=== PATIENT | male | born 1950 | race Caucasian/White ===

== ENCOUNTER 2023-04-17 06:29 | Outpatient (OUT) | payer MEDICARE, OTHER, SELFPAY ==
[2023-04-17 07:07] LABS: Alanine Aminotransferase 45 U/L (16-63); Anion Gap 13.4; BUN Creatinine Ratio 21.2; Calcium 8.3 mg/dL (8.5-10.1); Carbon Dioxide 27.7 mmol/L (21.0-32.0); Chloride 101 mmol/L (98-107); Chol HDL Ratio 5.2; Cholesterol 150 mg/dL (<=200); Estimated GFR (African America >60 (>=60); Estimated GFR (Non-African Ame >60 (>=60); Glucose 89 mg/dL (74-106); HDL Cholesterol 29 mg/dL (40-60); Potassium 4.1 mmol/L (3.5-5.1); Sodium 138 mmol/L (136-145); Thyroid Stimulating Hormone 1.984 uIU/mL (0.358-3.740); Triglycerides 245 mg/dL (<=150)
[2023-04-17 07:43] LABS: Basophils Percent Auto 0.3 % (0.2-2.0); Eosinophils Absolute Auto 0.1 10^3/uL (0.0-0.7); Eosinophils Percent Auto 1.4 % (0.9-7.0); Hematocrit 38.9 % (42.0-54.0); Hemoglobin 13.2 g/dL (14.0-18.0); Immature Granulocytes Abs Auto 0.15 10^3/uL (0.00-0.03); Immature Granulocytes Pct Auto 1.5 % (0.0-0.5); Lymphocytes Absolute Auto 2.4 10^3/uL (1.2-3.8); Lymphocytes Percent Auto 25.1 % (20.5-60.0); Mean Corpuscular HGB Conc 33.9 g/dL (29.9-35.2); Mean Corpuscular Hemoglobin 31.7 pg (25.9-34.0); Mean Corpuscular Volume 93.5 fL (80.0-94.0); Mean Platelet Volume 11.1 fL (9.5-13.5); Monocytes Absolute Auto 1.1 10^3/uL (0.3-0.8); Monocytes Percent Auto 11.6 % (1.7-12.0); Neutrophils Absolute Auto 5.8 10^3/uL (1.4-6.5); Neutrophils Percent Auto 60.1 % (43.0-75.0); Platelet Count 173 10^3/uL (150-450); Red Blood Count 4.16 10^6/uL (4.70-6.10); Red Cell Distribution Width 12.4 % (11.0-15.0); White Blood Count 9.7 10^3/uL (4.0-11.0)
[2023-04-17 08:27] LABS: Prostate Specific Antigen Scrn 1.25 ng/mL (<=4.00)
== END 2023-04-17 06:30 | disposition home or self-care (01) ==
LOC: LAB 06:29
PROVIDERS: PCP Internal Medicine; Visit Provider Internal Medicine
DX: Z00.00 Encounter for general adult medical examination without abnormal findings (principal); R53.83 Other fatigue; Z79.899 Other long term (current) drug therapy; E78.00 Pure hypercholesterolemia, unspecified; Z12.5 Encounter for screening for malignant neoplasm of prostate
CPT/HCPCS: 36415; 80048; 80061; 84443; 84460; 85025; G0103

== ENCOUNTER 2024-04-21 06:30 | Outpatient (OUT) | payer MEDICARE, OTHER, SELFPAY ==
[2024-04-21 07:00] LABS: Basophils Percent Auto 0.4 % (0.2-2.0); Eosinophils Absolute Auto 0.4 10^3/uL (0.0-0.7); Eosinophils Percent Auto 5.2 % (0.9-7.0); Hematocrit 41.7 % (42.0-54.0); Hemoglobin 14.1 g/dL (14.0-18.0); Immature Granulocytes Abs Auto 0.04 10^3/uL (0.00-0.03); Immature Granulocytes Pct Auto 0.5 % (0.0-0.5); Lymphocytes Absolute Auto 2.4 10^3/uL (1.2-3.8); Lymphocytes Percent Auto 31.2 % (20.5-60.0); Mean Corpuscular HGB Conc 33.8 g/dL (29.9-35.2); Mean Corpuscular Hemoglobin 31.8 pg (25.9-34.0); Mean Corpuscular Volume 93.9 fL (80.0-94.0); Mean Platelet Volume 10.3 fL (9.5-13.5); Monocytes Absolute Auto 0.7 10^3/uL (0.3-0.8); Monocytes Percent Auto 9.4 % (1.7-12.0); Neutrophils Absolute Auto 4.1 10^3/uL (1.4-6.5); Neutrophils Percent Auto 53.3 % (43.0-75.0); Platelet Count 210 10^3/uL (150-450); Red Blood Count 4.44 10^6/uL (4.70-6.10); Red Cell Distribution Width 12.2 % (11.0-15.0); White Blood Count 7.6 10^3/uL (4.0-11.0)
[2024-04-21 08:09] LABS: Alanine Aminotransferase 36 U/L (16-63); Albumin Globulin Ratio 0.9; Albumin Level 3.6 g/dL (3.4-5.0); Alkaline Phosphatase 58 U/L (46-116); Anion Gap 14.4; Aspartate Amino Transferase 23 U/L (15-37); BUN Creatinine Ratio 13.5; Bilirubin Total 0.7 mg/dL (0.2-1.0); Calcium 9.2 mg/dL (8.5-10.1); Carbon Dioxide 28.5 mmol/L (21.0-32.0); Chloride 103 mmol/L (98-107); Chol HDL Ratio 4.2; Cholesterol 157 mg/dL (<=200); Estimated GFR (African America >60 (>=60 mL/min/1.73m^2); Estimated GFR (Non-African Ame >60 (>=60 mL/min/1.73m^2); Globulin 3.8 g/dL; Glucose 98 mg/dL (74-106); HDL Cholesterol 37 mg/dL (40-60); Potassium 4.9 mmol/L (3.5-5.1); Sodium 141 mmol/L (136-145); Thyroid Stimulating Hormone 3.853 uIU/mL (0.358-3.740); Total Protein 7.4 g/dL (6.4-8.2); Triglycerides 113 mg/dL (<=150); VLDL CHOLESTEROL 22.6 mg/dL
[2024-04-21 08:13] LABS: Prostate Specific Antigen Scrn 1.48 ng/mL (<=4.00)
[2024-04-22 08:12] LABS: Vitamin B12 574 pg/mL (232-1245)
== END 2024-04-21 06:31 | disposition home or self-care (01) ==
LOC: LAB 06:31
PROVIDERS: PCP Internal Medicine; Visit Provider Internal Medicine
DX: D64.9 Anemia, unspecified (principal); R53.83 Other fatigue; E78.00 Pure hypercholesterolemia, unspecified; I10 Essential (primary) hypertension; Z12.5 Encounter for screening for malignant neoplasm of prostate
CPT/HCPCS: 36415; 80053; 80061; 82607; 82728; 84443; 85025; G0103

== ENCOUNTER 2024-04-30 07:16 | Outpatient (OUT) | payer MEDICARE, OTHER, SELFPAY ==
--- OUTSIDE RECORDS SUMMARY | 2024-04-30 07:18 | XMS_ITS | CCD ---
Author Organization [facility] Care Team Providers Care Mover Helper Name Role Phone ISRAEL, DR CHILDRESS Consulting Unavailable ISRAEL, DR CHILDRESS Primary Care Unavailable ISRAEL, DR CHILDRESS Admitting Unavailable ISRAEL, DR CHILDRESS Attending Unavailable ISRAEL, DR CHILDRESS Primary Care Unavailable ISRAEL, DR CHILDRESS Admitting Unavailable ISRAEL, DR CHILDRESS Attending Unavailable ISRAEL, DR CHILDRESS Consulting Unavailable [place], Ruben Unavailable MITZY EISENBERG Attending Unavailable Unavailable Primary Care Provider UnavailMAGO Melchor Attending Unavailable MARLEN, VA Boyd Attending Unavailable TATIANNA ANN Attending Unavailable MARLEN, VA Boyd Attending Unavailable Ruben Wood MD Primary Care Provider MD JAYASHREE GRANT Attending Unav ailRUBEN Zhang Referring Unavailable RUBEN WOOD Primary Care Physician [phone] Allergies Allergy Classification Reported Allergen(s) Allergy Type Date of Onset Reaction(s) Facility (5 sources) Bacitracin / Neomycin / Polymyxin B Drug Allergy swelling et blisters Agent Partner Other (1 source) NEOMYCIN-BACITR ACIN-POLYMYXIN; Translations: [NEOMYCIN-BACIT RACIN-POLYMYXIN ] Propensity to adverse reactions to drug (disorder) 4 [facility] Repository (1 source) NEOMYCIN-BACITR ACNZN-POLYMYXNB ; Translations: [NEOMYCIN-BACIT RACNZN-POLYMYXN B] Propensity to adverse reactions to drug (disorder) 3 [facility] Repository (7 sources) Bacitracin; Translations: [bacitracin] Drug Allergy 4 Unknown (qualifier value) [facility] (3 sources) Neomycin; Translations: [Neomycin] Drug Allergy 4 Unknown (qualifier value) [facility] (6 sources) polymyxin B Allergy to substance 4 Swelling, rash, blistering, swelling et blisters [facility] (1 source) polymyxin B ophthalmic; Translations: [polymyxin B ophthalmic] Drug allergy Unknown (qualifier value) [facility] Medications Current Medications Medication Drug Class(es) Dates Sig (Normalized) Sig (Original) acetaminophen 300 mg / codeine phosphate 30 mg oral tablet (5 sources) Opioid Agonist Start: 10-22-2023 acetaminophen-cod eine (Tylenol w/ Codeine #3) 300-30 MG tablet 10/22/2023 Active acetaminophen 325 mg / HYDROcodone bitartrate 5 mg oral tablet (5 sources) Opioid Agonist Start: 10-15-2023 take 1 tablet by mouth every six hours for pain HYDROcodone-aceta minophen ([place]) 5-325 MG tablet take 1 tablet by mouth every 6 hours if needed for mild pain for 3 days 10/15/2023 Active acetaminophen 325 mg / traMADol hydrochloride 37.5 mg oral tablet (5 sources) Opioid Agonist Start: 10-15-2023 traMADol-acetamin ophen (UltraCET) 37.5-325 MG tablet take 2 tablets by mouth every 4 to 6 hours maximum daily dose of 8 tablets 10/15/2023 Active amoxicillin 875 mg / clavulanate 125 mg oral tablet (4 sources) Penicillin-class Antibacterial take 1 tablet by mouth every twelve hours Amoxicillin-Pot Clavulanate 875-125 MG 1 tablet Orally every 12 hrs w/ food for 7 days Active aspirin 81 mg delayed release oral tablet (14 sources) Platelet Aggregation Inhibitor, Nonsteroidal Anti-inflammatory Drug Start: 03-20-2024 Aspirin (Adult Low Dose Aspirin) 81 mg tablet,delayed release (DR/EC) Active 81 MG PO Daily March 20, 2024 12:00am Start: 07-16-2018 End: 03-20-2024 take 325 mg by mouth once daily Aspirin Discontinued 325 MG PO Daily July 16, 2018 1:00am March 20, 2024 9:01am atorvastatin 10 mg oral tablet (20 sources) HMG-CoA Reductase Inhibitor Start: 04-29-2024 atorvastatin 10 mg T ab 10 mg = 1 tab(s) Start Date: 04/29/24 Status: Ordered Start: 02-18-2024 Atorvastatin A ctive 0 .ROUTE .COMPLEX 90 February 18, 2024 11:46am TAKE 1 TABLET ONCE DAILY Start: 03-08-2023 take 1 tablet by isabel th every twenty-four hours Atorvastatin Calcium 10 MG 1 tablet Orally Once a day for 90 days Mar, Active Start: 07-16-2018 End: 02-18-2024 Atorvastatin Discontinued 10 MG PO Q48H July 16, 2018 1:00am February 18, 2024 11:46am azithromycin 250 mg oral tablet (3 sources) Macrolide Antimicrobial Start: 04-05-2023 Azithromycin 250 MG as directed Orally daily for 5 days Apr, Active betamethasone 0.5 mg/ml topical cream (5 sources) Corticosteroid betamethasone dipropionate 0.05 % cream Active ciprofloxacin 500 mg oral tablet (6 sources) Quinolone Antimicrobial Start: 04-29-2024 take 1 tablet by mouth twice daily Cipro 500 mg Tab 500 mg = 1 tab(s), Oral, BID, Start the day prior to procedure., # 6 tab(s), Refills(s) 0, Pharmacy: [id number], [id number], cm, 04/29/24 14:04:00 EDT, Height/Length Dosing, 122.5, kg, 04/29/24 14:04:00 EDT, Weight Dosing Start Date: 04/29/24 Status: Ordered ciprofloxacin (C ipro) 500 MG tablet every 12 (twelve) hours. Active diclofenac sodium 75 mg / miSOPROStol 0.2 mg delayed release oral tablet (20 sources) Nonsteroidal Anti-inflammatory Drug, Prostaglandin E1 Analog Start: 04-29-2024 diclofenac-misoprostol 75 mg-200 mcg oral delayed release tablet 1 tab(s) Start Date: 04/29/24 Status: Ordered Start: 02-18-2024 Diclofenac-Mis oprostol Active 0 .ROUTE .COMPLEX 180 February 18, 2024 11:46am TAKE 1 TABLET TWICE A DAY Start: 07-16-2018 End: 02-18-2024 take 1 tablet by mouth once daily in the morning Diclofenac-Misoprostol (Arthrotec 50) 50-200 mg-mcg Tablet,Ir,Delayed Rel,Biphasic Discontinued 1 TAB PO Every morning July 16, 2018 1:00am February 18, 2024 11:46am take 1 tablet by isabel th in the morning Diclofenac-miSOPROStol (ARTHROTEC PO) Take 1 tablet by mouth in the morning and 1 tablet before bedtime. Active take 1 tablet by isabel th every twelve hours Arthrotec 75-0.2 MG 1 tablet with food Orally Twice a day Active Diclofenac-miSOP ROStol 75-0.2 MG TAKE 1 TABLET TWICE A DAY for 90 Not-Taking doxepin 6 mg oral tablet (5 sources) Tricyclic Antidepressant Start: 03-20-2024 doxepin (Silenor) 6 mg tablet tablet Take 6 mg by mouth as needed at bedtime 03/20/2024 Active levoFLOXacin 500 mg oral tablet (5 sources) Quinolone Antimicrobial Start: 03-27-2024 take 1 tablet by mouth once daily levoFLOXacin (Levaquin) 500 MG tablet Take 500 mg by mouth Daily 03/27/2024 Active loratadine 10 mg oral tablet (7 sources) Start: 07-16-2018 take 1 tablet by mouth once daily Loratadine (Claritin) 10 mg Tablet Active 10 MG PO Daily July 16, 2018 1:00am 12 hr loratadine 5 mg / pseudoephedrine sulfate 120 mg extended release oral tablet (5 sources) alpha-Adrenergic Agonist loratadine-pseudoe phedrine ER (Claritin-D 12 Hour) 5-120 MG 12 hr tablet every 12 (twelve) hours. Active Nasal [place] 0.05 % (2 sources) take 2 spray(s) nasal route at bedtime Nasal [place] 0.05 % 2 sprays Nasally bedtime Active ondansetron 4 mg disintegrating oral tablet (5 sources) Serotonin-3 Receptor Antagonist Start: 03-27-2024 take 4 mg by mouth every eight hours Ondansetron Active 4 MG PO Every 8 hours 9 3 March 27, 2024 12:00am oxymetazoline hydrochloride 0.5 mg/ml nasal spray (10 sources) Start: 07-17-2018 Oxymetazoline (Afrin (Oxymetazoline)) 0.05 % [place],Non-Aerosol Active 2 SPRAY INTRANASAL Daily at bedtime July 17, 2018 1:00am oxymetazoline (A frin Nasal [place]) 0.05 % nasal spray [place] 2 sprays twice a day by intranasal route. Active take 2 spray(s) nasal route at b edtime Nasal [place] 0.05 % 2 sprays Nasally bedtime Active pantoprazole 40 mg delayed release oral tablet (15 sources) Proton Pump Inhibitor Start: 04-29-2024 Pantoprazole 40 mg D R Tab 40 mg = 1 tab(s) Start Date: 04/29/24 Status: Ordered Start: 02-18-2024 Pantoprazole A ctive 0 .ROUTE .COMPLEX 90 February 18, 2024 11:46am TAKE 1 TABLET ONCE DAILY INTHE MORNING ON AN EMPTY STOMACH FOLLOWED IN 30 MINUTES BY BREAKFAST Start: 06-07-2021 End: 02-18-2024 take 40 mg by mouth once daily Pantoprazole Discontinu ed 40 MG PO Daily June 07, 2021 1:00am February 18, 2024 11:46am predniSONE 20 mg oral tablet (7 sources) Start: 03-13-2023 take 1 tablet by mouth twice daily predniSONE 20 MG 1 tablet Orally twice daily w/ food for 5 days Apr, Active pseudoephedrine hydrochloride 30 mg oral tablet (10 sources) alpha-Adrener gic Agonist take 1 tablet by mouth in the morning pseudoephedrine (Sudafed) 30 MG tablet Take 1 tablet by mouth in the morning. Active take 1 tablet by mouth once francisco y Sudafed 30 MG 1 tablet Orally daily for 90 days Active psyllium 3400 mg powder for oral suspension (7 sources) Start: 07-17-2018 Psyllium Husk (Metamucil) 3.4 gram/5.4 gram Powder Active 1 TBSP PO Daily July 17, 2018 1:00am Metamucil 28 % 1 packet with 8 ounces of liquid as needed Orally Once a day Active tamsulosin hydrochloride 0.4 mg oral capsule (18 sources) alpha-Adrenergic Yasmin Start: 04-29-2024 tamsu losin 0.4 mg Cap 0.4 mg = 1 cap(s) Start Date: 04/29/24 Status: Ordered Start: 07-16-2018 take 1 capsule by [facility] once daily Tamsulosin (Flomax) 0.4 mg capsule Active 0.4 MG PO Daily July 16, 2018 1:00am Completed/Discontinued Medications Medication Drug Class(es) Dates Sig (Normalized) Sig (Original) [id number] 200 actuat albuterol 0.09 mg/actuat metered dose inhaler (5 sources) beta2-Adrenergic Agonist Start: 04-03-2019 take 2 puff(s) by inhalation every six hours as needed Albuterol Sulfate HFA 108 (90 Base) MCG/ACT Albuterol Sulfate HFA 108 (90 Base)MCG/ACT, 2 (two) Puff every six hours, as needed # 1, 04/03/2019, Ref. x5. Active Inhalation every six hours, as needed for Apr, Not-Taking Start: 04-03-2019 take 2 puff(s) by in halation every six hours as needed Albuterol Sulfate HFA 108 (90 Base) MCG/ACT Albuterol Sulfate HFA 108 (90 Base)MCG/ACT, 2 (two) Puff every six hours, as needed # 1, 04/03/2019, Ref. x5. Active Inhalation every six hours, as needed for Apr, Not-Taking dextromethorphan hydrobromide 1.5 mg/ml / pyrilamine maleate 1.5 mg/ml oral solution (5 sources) Uncompetitive P-cwtsem-F-aspartate Receptor Antagonist, Sigma-1 Agonist Start: 01-04-2019 [place] DM 7.5-7.5 MG/5ML 10 ml Orally every 6-8 hours as needed for 8 days Dec, Not-Taking fluticasone propionate 0.05 mg/actuat metered dose nasal spray (20 sources) Corticosteroid Start: 04-29-2024 fluticasone Nasal 0.05 mg/inh [place] 1 spray(s) Start Date: 04/29/24 Status: Ordered Start: 02-18-2024 take 2 spray(s) nasa l route once daily Fluticasone Propionate Active 0 .ROUTE .COMPLEX 48 February 18, 2024 11:46am USE 2 SPRAYS IN EACH NOSTRIL ONCE DAILY Start: 03-08-2023 take 2 spray(s) nasa l route once daily Fluticasone Propionate 50 MCG/ACT 2 sprays each nostril Nasally Once a day for 90 days Mar, Active Start: 06-07-2021 End: 02-18-2024 Fluticasone Furoate Disconti nued 1 SPRAY INTRANASAL Daily June 07, 2021 1:00am February 18, 2024 11:46am Start: 08-17-2013 take 2 spray(s) nasa l route once daily FLONASE 50 mcg 2 sprays each NOSTRIL intranasally qd for 10 day(s) Aug, Active fluticasone (Fish nase) 50 MCG/ACT nasal spray Active glycerin 2 mg/ml / hypromellose 2 mg/ml / polyethylene glycol 400 10 mg/ml ophthalmic solution (2 sources) Non-Standardized Chemical Allergen Start: 06-07-2021 End: 03-20-2024 Peg 270-Kuqtasfbpbwf-Cnadqsru Discontinued 1 DROPS EYE-BOTH As Directed June 07, 2021 1:00am March 20, 2024 9:03am methylPREDNISolone 4 mg oral tablet (5 sources) Corticosteroid Start: 01-04-2019 Medrol (Avi) 4 MG half of daily dose in the morning with food and the rest at night with food Orally Dec, Not-Taking nabumetone 750 mg oral tablet (5 sources) Nonsteroidal Anti-inflammatory Drug Nabumetone 750 MG as directed Orally Not-Taking Hfqetjcsx-Lj-Nsmpcbm n-Guaifen (Sudafed [place] Congestion-Flu) 6-64-167-100 mg Tablet (2 sources) Start: 06-07-2021 End: 03-20-2024 Gqvbvouqv-As-Yecbtelm-Guai fen (Sudafed [place] Congestion-Flu) 0-61-076-100 mg Tablet Discontinued 1 TAB PO As Directed June 07, 2021 1:00am March 20, 2024 9:03am ProAir HFA 108 (90 Base) MCG/ACT (5 sources) Start: 01-04-2019 take 2 puff(s) by inhalation every four to six hours as needed ProAir HFA 108 (90 Base) MCG/ACT 2 puffs as needed Inhalation every 4-6 hrs Dec, Not-Taking Problems Active Problems Problem Classification Problem Date Documented Date Episodic/Chronic Acute bronchitis (1 source) Acute bronchitis due to other specified organisms Episodic Asthma (15 sources) Uncomplicated moderate persistent asthma; Translations: [Moderate persistent asthma, uncomplicated] Chronic Cataract (6 sources) Bilateral age-related nuclear cataracts; Translations: [Age-related nuclear cataract, bilateral] Onset: 01-22-2023 01-22-2023 Chronic Deficiency and other anemia (4 sources) Anemia, unspecified; Translations: [ANEMIA UNSPECIFIED] Onset: 05-22-2022 Episodic Disorders of lipid metabolism (15 sources) Familial hypercholesterolemia; Translations: [Hypercholesterolemia] Onset: 03-27-2022 Chronic Diverticulosis and diverticulitis (5 sources) Diverticulosis of sigmoid colon; Translations: [Diverticulosis of large intestine without perforation or abscess without bleeding] Chronic Esophageal disorders (10 sources) Gastro-esophageal reflux disease with esophagitis; Translations: [Gastroesophageal reflux disease with esophagitis without hemorrhage] 03-17-2024 Chronic Essential hypertension (3 sources) Hypertensive disorder; Translations: [Essential (primary) hypertension] 03-20-2024 Chronic Genitourinary symptoms and ill-defined conditions (5 sources) Nocturia; Translations: [Retention of urine] Onset: 04-29-2024 Episodic Glaucoma (6 sources) Preglaucoma, unspecified, bilateral; Translations: [Preglaucoma, unspecified] Onset: 01-22-2023 01-22-2023 Chronic Hyperplasia of prostate (8 sources) Nocturia due to benign prostatic hypertrophy; Translations: [Benign prostatic hyperplasia with lower urinary tract symptoms] Onset: 04-29-2024 Chronic Inflammation; infection of eye (except that caused by tuberculosis or sexually transmitteddisease) (6 sources) Blepharitis of upper and lower eyelids of bilateral eyes; Translations: [Unspecified blepharitis right eye, upper and lower eyelids] Onset: 01-22-2023 01-22-2023 Episodic Inflammatory conditions of male genital organs (1 source) Acute prostatitis 04-29-2024 Episodic Malaise and fatigue (1 source) Other fatigue Episodic Melanomas of skin (5 sources) 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; Translations: [Melanoma in situ of nose] Chronic Other aftercare (2 sources) Other mcc (current) drug therapy; Translations: [OTH CORRECTION CURRENT DRUG THERAPY] Onset: 03-29-2022 Episodic Other and unspecified benign neoplasm (2 sources) Skin lesion; Translations: [Hemangioma of skin and subcutaneous tissue] 04-21-2024 Episodic Other endocrine disorders (1 source) Testicular hypofunction; Translations: [Testicular hypofunction] Onset: 04-29-2024 Chronic Other endocrine disorders (1 source) Male hypogonadism 04-29-2024 Chronic Other eye disorders (6 sources) Dry eyes; Translations: [Dry eye syndrome of bilateral lacrimal glands] Onset: 01-22-2023 01-22-2023 Episodic Other male genital disorders (2 sources) Male erectile dysfunction, unspecified; Translations: [Erectile dysfunction] Onset: 04-29-2024 Chronic Other nutritional; endocrine; and metabolic disorders (2 sources) Obesity; Translations: [Obesity, unspecified] 03-20-2024 Chronic Other nutritional; endocrine; and metabolic disorders (1 source) Obesity, unspecified; Translations: [Obesity, unspecified] 03-20-2024 Chronic Other screening for suspected conditions (not mental disorders or infectious disease) (8 sources) Encounter for screening for malignant neoplasm of prostate; Translations: [Patient encounter status] Onset: 03-29-2022 Episodic Other skin disorders (2 sources) Lentiginosis; Translations: [Other melanin hyperpigmentation] 04-21-2024 Episodic Other skin disorders (2 sources) Seborrheic keratosis; Translations: [Other seborrheic keratosis] 04-21-2024 Episodic Other upper respiratory disease (5 sources) Vasomotor rhinitis; Translations: [Vasomotor rhinitis] Chronic Other upper respiratory disease (1 source) Vasomotor rhinitis Chronic Otitis media and related conditions (2 sources) Acute serous otitis media, left ear; Translations: [Unspecified Eustachian tube disorder, left ear] Episodic Residual codes; unclassified (8 sources) Obstructive sleep apnea syndrome; Translations: [Obstructive sleep apnea (adult) (pediatric)] 03-17-2024 Chronic Residual codes; unclassified (3 sources) Obstructive sleep apnea (adult) (pediatric); Translations: [Obstructive sleep apnea (adult)(pediatric)] Chronic Residual codes; unclassified (5 sources) Family history of malignant neoplasm of gastrointestinal tract; Translations: [Family history of malignant neoplasm of digestive organs] Episodic Residual codes; unclassified (3 sources) Insomnia; Translations: [Insomnia, unspecified] 03-20-2024 Episodic Residual codes; unclassified (2 sources) Family history of cancer of colon; Translations: [Family history of malignant neoplasm of digestive organs] 06-13-2023 Episodic Residual codes; unclassified (2 sources) Insomnia, unspecified; Translations: [Insomnia, unspecified] 03-20-2024 Episodic Spondylosis; intervertebral disc disorders; other back problems (11 sources) Lumbar spondylosis; Translations: [Spondylosis without myelopathy or radiculopathy, lumbar region] Chronic Past or Other Problems Problem Classification Problem Date Documented Da te Episodic/Chronic Esophageal disorders (1 source) Esophageal disorders Results Test Name Value Interpretation Reference Range Facil ity Perimetry studyon 04-23-2024 [facility] Healthcar e Radiology Study observation (narrative) [facility] Healthcare Follow-Upon 11-09-2023 Follow-Up [id number] Earl Jiménez 1950 M Date Provider Department Center 11/09/2023 MITZY SANCHEZ [facility] SLEEP [facility] No family history on file Level of Service:65677 CT OFFICE/OUTPATIENT ESTABLISHED LOW [facility] 20 MIN Reason for Visit and Comments: Follow-up [691287] - Pt states it is going ok however over the past few weeks he's had some dental work with was irritated by the air. It is healed up now so he's been back on the machine for about the past week. Normal [facility] 36on 11-30-2022 36 ----- Message from Mitzy Eisenberg MD sent at 11/28/2022 5:53 PM EDT ----- Regarding: FW: CPAP download Please inform the patient that the numbers improved after we increased the setting (AHI improved from 6.6 to 4.0). Will keep current setting at 17 cmH2O. I made addendum at the bottom of my note from his last follow-up visit on 2022. ----- Message ----- From: Mitzy Eisenberg MD Sent: 11/22/2022 12:00 AM EDT To: Mitzy Eisenberg MD Subject: CPAP download Saw patient on 2022. Changed CPAP setting from 15 cmH2O to 17 cmH2O. Check download. Normal [facility] CBC AUTO DIFFon 05-22-2022 BASO # 0.0 103/ul Normal 0.0-0.1 [facility] Comment on above: Performed By: #### C BC #### [facility] [address] [address] [address] Jordan Jensen Basophils/100 WBC (Bld) 0.4 % Normal 0.2-2.0 [facility] Comment on above: Performed By: #### C BC #### [facility] [address] [place] [address] Dr. Jordan Jensen EO # 0.3 103/ul Normal 0.0-0.7 [facility] Comment on above: Performed By: #### C BC #### [facility] [address] [place] [address] Dr. Jordan Jensen Eosinophils/100 WBC (Bld) 3.1 % Normal 0.9-7.0 [facility] Comment on above: Performed By: #### C BC #### [facility] [address] [place] [address] Dr. Jordan Jensen Erythrocyte distribution width (RBC) [Ratio] 12.1 % Normal 11.0-15.0 [facility] Comment on above: Performed By: #### C BC #### [facility] [address] [place] [address] Dr. Jordan Jensen Hematocrit (Bld) [Volume fraction] 40.9 % Critically low 42.0-54.0 [facility] Comment on above: Performed By: #### C BC #### [facility] [address] [place] [address] Dr. Jordan Jensen Hemoglobin (Bld) [Mass/Vol] 14.4 g/dL Normal 14.0-18.0 [facility] Comment on above: Performed By: #### C BC #### [facility] [address] [place] [address] Dr. Jordan Jensen IG # 0.06 10e3/ul Critically high 0.00-0.03 [facility] Comment on above: Performed By: #### C BC #### [facility] [address] [place] [address] Dr. Jordan Jensen IG % 0.7 % Critically high 0.0-0.5 [facility] Comment on above: Performed By: #### C BC #### [facility] [address] [place] [address] Dr. Jordan Jensen LYMPH # 2.3 103/ul Normal 1.2-3.8 [facility] Comment on above: Performed By: #### C BC #### [facility] [address] [place] [address] Dr. Jordan Jensen Lymphocytes/100 WBC (Bld) 27.9 % Normal 20.5-60.0 [facility] Comment on above: Performed By: #### C BC #### [facility] [address] [place] [address] Dr. Jordan Jensen MANUAL DIFF REQ NO Normal [facility] Comment on above: Performed By: #### C BC #### [facility] [address] [place] [address] Dr. Jordan Jensen MCH (RBC) [Entitic mass] 32.5 pg Normal 25.9-34.0 [facility] Comment on above: Performed By: #### C BC #### [facility] [address] [place] [address] Dr. Jordan Jensen MCHC (RBC) [Mass/Vol] 35.2 g/dL Normal 29.9-35.2 [facility] Comment on above: Performed By: #### C BC #### [facility] [address] [place] [address] Dr. Jordan Jensen MCV (RBC) [Entitic vol] 92.3 fL Normal 80.0-94.0 [facility] Comment on above: Performed By: #### C BC #### [facility] [address] [place] [address] Dr. Jordan Jensen MONO # 0.6 103/ul Normal 0.3-0.8 [facility] Comment on above: Performed By: #### C BC #### [facility] [address] [place] [address] Dr. Jordan Jensen Monocytes/100 WBC (Bld) 7.6 % Normal 1.7-12.0 [facility] Comment on above: Performed By: #### C BC #### [facility] [address] [place] [address] Dr. Jordan Jensen NEUT # 4.9 103/ul Normal 1.4-6.5 [facility] Comment on above: Performed By: #### C BC #### [facility] [address] [address] [address] Jordan Jensen Neutrophils/100 WBC (Bld) 60.3 % Normal 43.0-75.0 [facility] Comment on above: Performed By: #### C BC #### [facility] [address] [place] [address] Dr. Jordan Jensen Platelet mean volume (Bld) [Entitic vol] 10.1 fL Normal 9.5-13.5 [facility] Comment on above: Performed By: #### C BC #### [facility] [address] [address] [address] Jordan Jensen PLT 189 103/ul Normal 150-450 [facility] Comment on above: Performed By: #### C BC #### [facility] [address] [place] [address] Dr. Jordan Jensen RBC 4.43 106/ul Critically low 4.70-6.10 [facility] Comment on above: Performed By: #### C BC #### [facility] [address] [place] [address] Dr. Jordan Jensen WBC 8.1 103/ul Normal 4.0-11.0 [facility] Comment on above: Performed By: #### C BC #### [facility] [address] [place] [address] Dr. Jordan Jensen FOLATEon 05-22-2022 FOLATE 17.30 ng/mL Normal 8.60-58.90 [facility] Comment on above: Performed By: #### V ITB12, FOL, FETIBC #### [facility] [address] [place] [address] Dr. Jordan Jensen IRON AND TIBCon 05-22-2022 % SATURATION 28.3 % Normal [facility] Comment on above: Performed By: #### V ITB12, FOL, FETIBC #### [facility] [address] [place] [address] Dr. Jordan Jensen Iron [Mass/Vol] 89.0 ug/dL Normal 65.0-175.0 [facility] Comment on above: Performed By: #### V ITB12, FOL, FETIBC #### [facility] [address] [place] [address] Dr. Jordan Jensen TIBC DIRECT 314.0 ug/dL Normal 250.0-450.0 [facility] Comment on above: Performed By: #### V ITB12, FOL, FETIBC #### [facility] [address] [place] [address] Dr. Jordan Jensen VITAMIN B12on 05-22-2022 Cobalamin (Vitamin B12) [Mass/Vol] 507.0 pg/mL Normal 193.0-986.0 [facility] Comment on above: Performed By: #### V ITB12, FOL, FETIBC #### [facility] [address] [place] [address] Dr. Jordan Jensen CBC AUTO DIFFon 03-27-2022 BASO # 0.0 103/ul Normal 0.0-0.1 [facility] Comment on above: Performed By: #### C BC #### [facility] [address] [place] [address] Dr. Jordan Jensen Basophils/100 WBC (Bld) 0.5 % Normal 0.2-2.0 [facility] Comment on above: Performed By: #### C BC #### [facility] [address] [place] [address] Dr. Jordan Jensen EO # 0.3 103/ul Normal 0.0-0.7 [facility] Comment on above: Performed By: #### C BC #### [facility] [address] [place] [address] Dr. Jordan Jensen Eosinophils/100 WBC (Bld) 3.7 % Normal 0.9-7.0 [facility] Comment on above: Performed By: #### C BC #### [facility] [address] [place] [address] Dr. Jordan Jensen Erythrocyte distribution width (RBC) [Ratio] 12.1 % Normal 11.0-15.0 [facility] Comment on above: Performed By: #### C BC #### [facility] [address] [place] [address] Dr. Jordan Jensen Hematocrit (Bld) [Volume fraction] 40.3 % Critically low 42.0-54.0 [facility] Comment on above: Performed By: #### C BC #### [facility] [address] [place] [address] Dr. Jordan Jensen Hemoglobin (Bld) [Mass/Vol] 13.8 g/dL Critically low 14.0-18.0 [facility] Comment on above: Performed By: #### C BC #### [facility] [address] [place] [address] Dr. Jordan Jensen IG # 0.06 10e3/ul Critically high 0.00-0.03 [facility] Comment on above: Performed By: #### C BC #### [facility] [address] [place] [address] Dr. Jordan Jensen IG % 0.7 % Critically high 0.0-0.5 [facility] Comment on above: Performed By: #### C BC #### [facility] [address] [place] [address] Dr. Jordan Jensen LYMPH # 2.3 103/ul Normal 1.2-3.8 [facility] Comment on above: Performed By: #### C BC #### [facility] [address] [place] [address] Dr. Jordan Jensen Lymphocytes/100 WBC (Bld) 28.2 % Normal 20.5-60.0 [facility] Comment on above: Performed By: #### C BC #### [facility] [address] [place] [address] Dr. Jordan Jensen MANUAL DIFF REQ NO Normal [facility] Comment on above: Performed By: #### C BC #### [facility] [address] [place] [address] Dr. Jordan Jensen MCH (RBC) [Entitic mass] 32.2 pg Normal 25.9-34.0 [facility] Comment on above: Performed By: #### C BC #### [facility] [address] [place], [place] [id number] Dr. Jordan Jensen MCHC (RBC) [Mass/Vol] 34.2 g/dL Normal 29.9-35.2 [facility] Comment on above: Performed By: #### C BC #### [facility] [address] [place] [address] Dr. Jordan Jensen MCV (RBC) [Entitic vol] 94.2 fL Critically high 80.0-94.0 [facility] Comment on above: Performed By: #### C BC #### [facility] [address] [place] [address] Dr. Jordan Jensen MONO # 0.9 103/ul Critically high 0.3-0.8 [facility] Comment on above: Performed By: #### C BC #### [facility] [address] [place] [address] Dr. Jordan Jensen Monocytes/100 WBC (Bld) 10.4 % Normal 1.7-12.0 [facility] Comment on above: Performed By: #### C BC #### [facility] [address] [place] [address] Dr. Jordan Jensen NEUT # 4.6 103/ul Normal 1.4-6.5 [facility] Comment on above: Performed By: #### C BC #### [facility] [address] [place] [address] Dr. Jordan Jensen Neutrophils/100 WBC (Bld) 56.5 % Normal 43.0-75.0 [facility] Comment on above: Performed By: #### C BC #### [facility] [address] [place] [address] Dr. Jordan Jensen Platelet mean volume (Bld) [Entitic vol] 10.5 fL Normal 9.5-13.5 [facility] Comment on above: Performed By: #### C BC #### [facility] [address] [place] [address] Dr. Jordan Jensen PLT 187 103/ul Normal 150-450 [facility] Comment on above: Performed By: #### C BC #### [facility] [address] [place] [address] Dr. Jordan Jensen RBC 4.28 106/ul Critically low 4.70-6.10 [facility] Comment on above: Performed By: #### C BC #### [facility] [address] [address] [address] Jordan Jensen WBC 8.2 103/ul Normal 4.0-11.0 [facility] Comment on above: Performed By: #### C BC #### [facility] [address] [address] [address] Jordan Jensen LIPID PROFILEon 03-27-2022 CHOL-HDL RATIO NORM SEE BELOW Normal [facility] Comment on above: Result Comment: 3.3 - 4.4 LOW RISK 4.4 - 7.1 AVERAGE RISK 7.1 - 11.0 MODERATE RISK >11.0 HIGH RISK Performed By: #### L IPID, ALT #### [facility] [address] [address] [address] Jordan Jensen Cholesterol [Mass/Vol] 155 mg/dL Normal <=200 [facility] Comment on above: Performed By: #### L IPID, ALT #### [facility] [address] [address] [address] Jordan Jensen Cholesterol in HDL [Mass/Vol] 27 mg/dL Critically low 40-60 [facility] Comment on above: Performed By: #### L IPID, ALT #### [facility] [address] [address] [address] Jordan Jensen Cholesterol in LDL [Mass/Vol] 92.2 mg/dL Normal [facility] Comment on above: Performed By: #### L IPID, ALT #### [facility] [address] [address] [address] Jordan Jensen Cholesterol.total/ Cholesterol in HDL [Mass ratio] 5.7 {ratio} Normal [facility] Comment on above: Performed By: #### L IPID, ALT #### [facility] [address] [address] [address] Jordan Jensen HDL NORMAL > or = 60 mg/dl - LOW CARDIOVASCULAR RISK <40 mg/dl - HIGH CARDIOVASCULAR RISK Normal [facility] Comment on above: Performed By: #### L IPID, ALT #### [facility] [address] [address] [address] Jordan Jensen LDL CALC NORMAL SEE BELOW Normal [facility] Comment on above: Result Comment: <100 mg/dl OPTIMAL 100 - 129 mg/dl NEAR OR ABOVE OPTIMAL 130 - 159 mg/dl BORDERLINE HIGH 160 - 189 mg/dl HIGH >190 mg/dl VERY HIGH Performed By: #### L IPID, ALT #### [facility] [address] [address] [address] Jordan Jensen Triglyceride [Mass/Vol] 179 mg/dL Critically high <=150 [facility] Comment on above: Performed By: #### L IPID, ALT #### [facility] [address] [address] [address] Jordan Jensen VLDL CALC 35.8 mg/dL Normal [facility] Comment on above: Performed By: #### L IPID, ALT #### [facility] [address] [address] [address] Jordan Jensen [facility] 03-27-2022 ALT [Catalytic activity/Vol] 60 U/L Normal 16-63 [facility] Comment on above: Performed By: #### L IPID, ALT #### [facility] [address] [place] [address] Dr. Jordan Jensen COVID-19 Antigenon 1 COVID-19 Antigen Healthcare Worker?: N Caprice Reference Caprice Reference Negative SARS-CoV+SARS-CoV-2 (COVID-19) Ag [Presence] in Respiratory specimen by Rapid immunoassay Negative for SARS Antigen by KELIN COVID19 Blank Space Caprice Disclaimer Negative results, from patients with symptom Caprice Disclaimer onset beyond five days, should be treated as Caprice Disclaimer presumptive and confirmation with a molecular Caprice Disclaimer assay, if necessary, for patient management, Caprice Disclaimer may be performed. Negative results do not rule Caprice Disclaimer out COVID-19 and should not be used as the sole Caprice Disclaimer basis for treatment or patient management Caprice Disclaimer decisions, including infection control decisions. Caprice Disclaimer Negative results should be considered in the Caprice Disclaimer context of a patient's recent exposures, history Caprice Disclaimer and the presence of clinical signs and symptoms Caprice Disclaimer consistent with COVID-19. COVID19 Blank Space Caprice Disclaimer The Caprice SARS Antigen KELIN does not differentiate Caprice Disclaimer between SARS-CoV and SARS-CoV-2. COVID19 Blank Space Caprice Disclaimer This test was developed and its performance Caprice Disclaimer characteristic determined by [employer] and Caprice Disclaimer validated at [facility]. This Caprice Disclaimer test has not been FDA cleared or approved. This Caprice Disclaimer test has been authorized by FDA under an Emergency Use Caprice Disclaimer Authorization (EUA). This test has been validated Caprice Disclaimer in accordance with the FDA's Guidance Document (Policy Caprice Disclaimer for Diagnostics Testing in Laboratories Certified to Caprice Disclaimer Perform High Complexity Testing under CLIA prior to Caprice Disclaimer Emergency Use Authorization for Coronavirus Caprice Disclaimer is during the Public Health Emergency) Caprice Disclaimer issued on October 02, 2019. This test is only authorized Caprice Disclaimer for the duration of time the declaration that Caprice Disclaimer circumstances exist justifying the authorization of Caprice Disclaimer the emergency use of in vitro diagnostic tests for Caprice Disclaimer detection of SARS-CoV-2 virus and/or diagnosis of Caprice Disclaimer COVID-19 infection under section 564(b)(1) of the Caprice Disclaimer Act, 21 U.S.C. 360bbb-3(b)(1), unless the Caprice Disclaimer authorization is terminated or revoked sooner. PERFORMED BY: [place] [address] PATHOLOGIST TRAVEL CLERK ESPERANZA LEMUS M.D. Normal [facility] Comment on above: Performed By: #### S MARIA ELENAARLETTE COVID-19 CAPRICE #### [address] Caprice Ag Negativeon 06-03-20 21 Caprice Ag Negative Negative Normal Negative [facility] Comment on above: Result Comment: This is a duplicate Caprice SARS Antigen (KELIN) result to be used for statistical tracking purpose only. PERFORMED BY: [place] [address] PATHOLOGIST TRAVEL CLERK ESPERANZA LEMUS M.D. Performed By: #### S ARCADIO COVID-19 CAPRICE #### [address] Pulm Function [facility] 06[facility]01 Pulm Function [facility] MR #: [id number] [facility] PT. Name: Earl Jiménez Date: 06/11/2019 Date of : 1950 Patient Type: D Pulmonary Function INTERPRETATION TYPE OF STUDY: Pulmonary function test. PATIENT DEMOGRAPHICS: A 68-year-old male, height 72 inches, weight 278 pounds. DIAGNOSIS: Cough. No dyspnea. No wheeze. TOBACCO HISTORY: 1 pack per day, 20 years; cigarette smoking, quit 25 years ago. CURRENT MEDICATIONS: Flonase daily, Claritin daily. LUNG MECHANICS: FVC is normal at 5.12 L, which is 112% of predicted. FEV1 is normal at 3.68 L which is 102% of predicted. FEV1 over FVC ratio is normal at 72. AIRWAY RESISTANCE: Airway resistance is normal. FLOW VOLUME LOOP: Flow volume loop has a sore tooth pattern due to the vibration of abnormal pharyngeal tissue suggestive of sleep apnea. LUNG VOLUME: Lung volumes are within normal limits with RV, which is 87% predicted and TLC which is 109% of predicted. DIFFUSION CAPACITY: DLCO is normal at 94% of predicted with normal alveolar ventilation, which is 106% of predicted. IMPRESSION: Clinically consistent with normal lung mechanics, volumes and diffusion capacity. Flow volume loop showed a salted pattern suggestive of sleep apnea. Recommend continue CPAP therapy for sleep apnea. Electronically Signed by: Chris Leon M.D. 06/19/2019 09:32 A Chris Leon M.D. dock hand; [facility] and Sleep Medicine I personally reviewed the films/tests and agree with the resident's interpretation. Date Dict: 06/12/2019/01:37 P/Joanne Lindsey MD Date Trans: 06/13/2019 05:51 A/bryant [id number] Normal [facility] Vital Signs Date Time Vital Sign Value Performing Clinician Facility 03-27-2024 11:220400 Body height 182.88 cm [facility] 03-27-2024 11:22-0400 Body mass index (BMI) [Ratio] 36.4 kg/m2 [facility] 03-27-2024 11:22-0400 Body temperature 97.8 [degF] [facility] 03-27-2024 11:22-0400 Body weight 122.01 kg [facility] 03-27-2024 11:22-0400 Diastolic blood pressure 78 mm[Hg] [facility] 03-27-2024 11:22-0400 Heart rate 70 /min [facility] 03-27-2024 11:22-0400 SaO2% (BldA) [Mass fraction] 97 % [facility] 03-27-2024 11:22-0400 Systolic blood pressure 138 mm[Hg] [facility] 03-20-2024 08:52-0400 Body height 182.88 cm [facility] 03-20-2024 08:52-0400 Body mass index (BMI) [Ratio] 37.5 kg/m2 [facility] 03-20-2024 08:52-0400 Body weight 125.7 kg [facility] 03-20-2024 08:52-0400 Diastolic blood pressure 76 mm[Hg] [facility] 03-20-2024 08:52-0400 Heart rate 64 /min [facility] 03-20-2024 08:52-0400 Respiratory rate 12 /min [facility] 03-20-2024 08:52-0400 Systolic blood pressure 154 mm[Hg] [facility] 03-08-2023 08:30-0400 Body height 182.88 cm Ruben Ball Other [facility] [employer] Other 03-08-2023 08:30-0400 Body mass index (BMI) [Ratio] 36.86 kg/m2 Ruben Ball Other [employer] Other 03-08-2023 08:30-0400 Body weight 123.29 kg Ruben Ball Other [employer] Other 03-08-2023 08:30-0400 Diastolic blood pressure 77 mm[Hg] Ruben Ball Other [employer] Other 03-08-2023 08:30-0400 Respiratory rate 12 /min Ruben Ball Other [employer] Other 03-08-2023 08:30-0400 Systolic blood pressure 154 mm[Hg] Ruben Ball Other [employer] Other Encounters Encounter Date Encounter Type Care Provider Facility Start: 04-29-2024 ambulatory MD JAYASHREE GRANT Facility:[facility] Start: 04-29-2024 End: 04-29-2024 Patient encounter procedure JAYASHREE GRANT [facility] Start: 04-23-2024 End: 04-23-2024 Bamboo flowsheet Mago Curran DO Work Phone: [facility] Start: 04-23-2024 End: 04-23-2024 Bamboo flowsheet Mago Curran DO Work Phone: [facility] Start: 04-23-2024 ambulatory MD JAYASHREE GRANT Facility:[facility] Start: 04-21-2024 End: 04-21-2024 Bamboo flowsheet Va Gee MD Work Phone: [facility] Start: 04-21-2024 End: 04-21-2024 Bamboo flowsmichael Gee MD Work Phone: [facility] Start: 04-21-2024 End: 04-21-2024 Office outpatient visit 15 minutes Va Gee MD Work Phone: [facility] Comment on above: Seborrheic keratosis (Primary Dx); Angioma of skin; Lentigines Start: 04-21-2024 End: 04-21-2024 ambulatory VA GEE Not Available Start: 03-27-2024 End: 03-27-2024 ambulatory [facility] Work Phone: Start: 03-27-2024 End: 03-27-2024 Patient encounter procedure [facility] Work Phone: Start: 03-20-2024 End: 03-20-2024 ambulatory [facility] Work Phone: Start: 03-20-2024 End: 03-20-2024 Patient encounter procedure [facility] Work Phone: Start: 03-17-2024 Patient encounter procedure [facility] Start: 11-09-2023 End: 11-09-2023 ambulatory MITZY ELGIN [facility] Start: 10-23-2023 End: 10-23-2023 ambulatory MAGO CURRAN Not Available Start: 06-21-2023 End: 06-21-2023 ambulatory TATIANNA ANN Not Available Start: 06-06-2023 End: 06-06-2023 ambulatory VA GEE Not Available Start: 04-18-2023 End: 04-18-2023 ambulatory Ruben Wood Other [employer] Other Start: 04-18-2023 Telephone encounter Ruben Wood [facility] Start: 04-17-2023 End: 04-17-2023 ambulatory Ruben Wood Other [employer] Other Start: 04-17-2023 Telephone encounter Ruben Wood [facility] Start: 04-05-2023 End: 04-05-2023 ambulatory Ruben Wood Other [employer] Other Start: 04-05-2023 Office outpatient vi sit 15 minutes Ruben Wood [facility] Start: 03-13-2023 End: 03-13-2023 ambulatory Ruben Wood Other [employer] Other Start: 03-13-2023 Telephone encounter Ruben Wood [facility] Start: 03-08-2023 End: 03-08-2023 ambulatory Ruben Wood Other [employer] Other Start: 03-08-2023 Patient encounter procedure Ruben Wood [facility] Start: 05-22-2022 End: 05-23-[address] RUBEN WOOD Facility:[facility] Start: 03-27-2022 End: 03-28-[address] RUBEN WOOD Facility:[facility] Procedures Date Procedure Procedure Detail Performing Clinician Start: 04-23-2024 Visual field xm uni/ bi w/interp extended exam Mago Curran DO Work Phone: Start: 04-23-2024 End: 04-23-2024 Ophth medical xm&eval comprhnsv estab pt 1/> Glaucoma suspect of both eyes Mago Curran DO Work Phone: Comment on above: Glaucoma suspect of both eyes (Primary Dx); Age-related nuclear cataract of both eyes; Dry eyes; Blepharitis of upper and lower eyelids of both eyes, unspecified type Start: 11-09-2023 Follow-up visit Follow-up MITZY SELLERS Start: 03-27-[address] [place] Comment on above: Performed By: #### P [facility] #### [facility] [address] [place], [place] [address] Dr[address] Jordan Jensen Colonoscopy [employer] Extraction of cataract GEOVANI MCCRACKEN [employer] History of hernia repair MANUEL KELLER [employer] Screening for malign ant neoplasm of colon Ruben Wood Other Tonsillectomy [facility] [employer] Plan of Treatment Date Care Activity Detail Author Start: 04-07-2025 End: 04-07-2025 Patient encounter procedure 04/07/2025 8:30 AM EDT Office Visit [facility] [address] [place] [address] Va Gee MD [address] [place] [address] [facility] Start: 06-18-2024 End: 06-18-2024 Clinical Support 06/18/2024 9:00 AM EST Clinical Support [facility] [address] [place] [address] Katy Giron, [facility] [address] [place] [address] [facility] Start: 04-23-2024 End: 04-23-2024 Patient encounter procedure [facility] Comment on above: Arrived Start: 04-21-2024 End: 04-21-2024 Patient encounter procedure 04/21/2024 8:30 AM EDT Office Visit [facility] [address] [place] [address] Va Gee MD [address] [place] [address] Arrived [facility] Comment on above: Arrived Start: 03-20-2024 Patient referral [facility] Work Phone: Start: 03-02-2024 Influenza vaccination Influenza Vacc ine (#1) [facility] Start: 1950 Screening for malign ant neoplasm of colon [facility] Comprehensive metabo lic 2000 panel - Serum or Plasma [facility] Patient referral [facility] Work Phone: [facility] Immunizations Immunization Date Immunization Notes Care Provider Fa cili 04-16-2023 influenza virus vaccine, unspecified formulation Va Gee MD Work Phone: [facility] 04-03-2022 influenza virus vaccine, split virus (incl. purified surface antigen) Ruben Wood Other [facility] [employer] Other 04-03-2022 influenza virus vaccine, unspecified formulation [facility] 04-04-2021 COVID-19 Vaccine Pfi zer - Documentation Purposes Only Ruben Wood Other [facility] 03-09-2021 influenza virus vaccine, split virus (incl. purified surface antigen) Ruben Wood Other [facility] [employer] Other 03-09-2021 influenza virus vaccine, unspecified formulation [facility] 08-24-2020 COVID-19 Vaccine Pfi zer - Documentation Purposes Only Ruben Wood Other [facility] 08-03-2020 COVID-19 Vaccine Pfi zer - Documentation Purposes Only Ruben Wood Other [facility] 03-22-2020 influenza virus vaccine, split virus (incl. purified surface antigen) Ruben Wood Other [facility] [employer] Other 03-22-2020 influenza virus vaccine, unspecified formulation [facility] 04-04-2018 influenza virus vaccine, split virus (incl. purified surface antigen) Ruben Wood Other [facility] [employer] Other 04-04-2018 influenza virus vaccine, unspecified formulation [facility] 04-26-2017 influenza virus vaccine, split virus (incl. purified surface antigen) Ruben Wood Other [facility] [employer] Other 04-26-2017 influenza virus vaccine, unspecified formulation [facility] 04-26-2017 pneumococcal conjuga te vaccine, 13 valent Ruben Wood Other [facility] 05-16-2016 pneumococcal conjuga te vaccine, 13 valent Ruben Wood Other [facility] 04-16-2013 tetanus and diphther ia toxoids, adsorbed, preservative free, for adult use (5 Lf of tetanus toxoid and 2 Lf of diphtheria toxoid) Ruben Wood Other [facility] influenza vaccine A& B sa adj quad (Fluad Quadrivalent) syringe Va Gee MD Work Phone: [facility] Healthcare Payers Date Payer Category Payer Private Health Insurance [facility] [id number] 2023 Unknown [id number] 2016 Medicare MEDICARE [id number] 1959 Medicare [id number] 1959 Unknown [id number] 1950 Unknown [id number] 1950 Unknown [id number] 1950 Unknown [id number] 1950 Unknown [id number] 1950 Unknown [id number] 1950 Unknown [id number] 1950 Unknown [id number] Self-pay Self Pay [id number] Social History Date Type Detail Facility Unknown if ever smoked Agent Partner Other Start: 10-23-2023 End: 04-23-2024 Sex Assigned At Matthew Wesly [facility] Start: 07-15-2018 Tobacco smoking stat us RUST Never smoked tobacco (finding) [facility] Start: 1950 Sex Assigned At Male F [facility] Start: 06-21-2023 End: 04-29-2024 Tobacco smoking status LAIS Ex-smoker [facility] History of tobacco use Current smoker [facility] History of tobacco use Cigarette Smoker [facility] History of tobacco use Passive smoker [facility] Start: 06-21-2023 Tobacco use and exposure Smokeless tobacco non-user [facility] Start: 10-23-2023 End: 04-23-2024 Alcoholic beverage intake Current drinker of alcohol (finding) [facility] Start: 10-23-2023 End: 04-23-2024 History of Social function [facility] Start: 04-30-2023 Alcohol Comment caffeine 2-3 cups/da y [facility] Start: 1950 Sex assigned at Not on file [facility] Functional Status Date Assessment Result Facility 04-29-2024 Functional Status N/A [facility] Clinical Notes 03-08-2023 to 04-29-2024 Mago Curran DO - 04/23/2024 8:45 AM DANYTEkuldip Gee MD - 04/21/2024 8:30 AM EDT Note Date & Type Note Facility 04-29-2024 Hospital Discharge instructions Patient Education 04/29/2024 14:26:17 Cystoscopy Cystoscopy Cystoscopy is a procedure that is used to help diagnose and sometimes treat conditions that affect the lower urinary tract. The lower urinary tract includes the bladder and the urethra. The urethra is the tube that drains urine from the bladder. Cystoscopy is done using a thin, tube-shaped instrument with a light and camera at the end (cystoscope). The cystoscope may be hard or flexible, depending on the goal of the procedure. The cystoscope is inserted through the urethra, into the bladder. Cystoscopy may be recommended if you have: Urinary tract infections that keep coming back. Blood in the urine (hematuria). An inability to control when you urinate (urinary incontinence) or an overactive bladder. Unusual cells found in a urine sample. A blockage in the urethra, such as a urinary stone. Painful urination. An abnormality in the bladder found during an intravenous pyelogram (IVP) or CT scan. Cystoscopy may also be done to remove a sample of tissue to be examined under a microscope (biopsy). Tell a health care provider about: Any allergies you have. All medicines you are taking, including vitamins, herbs, eye drops, creams, and cqyv-ktn-ehpicdb medicines. Any problems you or family members have had with anesthetic medicines. Any blood disorders you have. Any surgeries you have had. Any medical conditions you have. Whether you are or may be . What are the risks? Generally, this is a safe procedure. However, problems may occur, including: Infection. Bleeding. Allergic reactions to medicines. Damage to other structures or organs. What happens before the procedure? Medicines Ask your health care provider about: Changing or stopping your regular medicines. This is especially important if you are taking diabetes medicines or blood thinners. Taking medicines such as aspirin and ibuprofen. These medicines can thin your blood. Do not take these medicines unless your health care provider tells you to take them. Taking lmno-vrs-chknpsb medicines, vitamins, herbs, and supplements. Tests You may have an exam or testing, such as: X-rays of the bladder, urethra, or kidneys. CT scan of the abdomen or pelvis. Urine tests to check for signs of infection. General instructions Follow instructions from your health care provider about eating or drinking restrictions. Ask your health care provider what steps will be taken to help prevent infection. These steps may include: ?Washing skin with a germ-killing soap. ?Taking antibiotic medicine. Plan to have a responsible adult take you home from the hospital or clinic. What happens during the procedure? You will be given one or more of the following: ?A medicine to help you relax (sedative). ?A medicine to numb the area (local anesthetic). The area around the opening of your urethra will be cleaned. The cystoscope will be passed through your urethra into your bladder. Germ-free (sterile) fluid will flow through the cystoscope to fill your bladder. The fluid will stretch your bladder so that your health care provider can clearly examine your bladder eugene. Your doctor will look at the urethra and bladder. Your doctor may take a biopsy or remove stones. The cystoscope will be removed, and your bladder will be emptied. The procedure may vary among health care providers and hospitals. What can I expect after the procedure? After the procedure, it is common to have: Some soreness or pain in your abdomen and urethra. Urinary symptoms. These include: ?Mild pain or burning when you urinate. Pain should stop within a few minutes after you urinate. This may last for up to 1 week. ?A small amount of blood in your urine for several days. ?Feeling like you need to urinate but producing only a small amount of urine. Follow these instructions at home: Medicines Take jfdc-twx-kkhaznn and prescription medicines only as told by your health care provider. If you were prescribed an antibiotic medicine, take it as told by your health care provider. Do not stop taking the antibiotic even if you start to feel better. General instructions Return to your normal activities as told by your health care provider. Ask your health care provider what activities are safe for you. If you were given a sedative during the procedure, it can affect you for several hours. Do not drive or operate machinery until your health care provider says that it is safe. Watch for any blood in your urine. If the amount of blood in your urine increases, call your health care provider. Follow instructions from your health care provider about eating or drinking restrictions. If a tissue sample was removed for testing (biopsy) during your procedure, it is up to you to get your test results. Ask your health care provider, or the department that is doing the test, when your results will be ready. Drink enough fluid to keep your urine pale yellow. Keep all follow-up visits. This is important. Contact a health care provider if: You have pain that gets worse or does not get better with medicine, especially pain when you urinate. You have trouble urinating. You have more blood in your urine. Get help right away if: You have blood clots in your urine. You have abdominal pain. You have a fever or chills. You are unable to urinate. Summary Cystoscopy is a procedure that is used to help diagnose and sometimes treat conditions that affect the lower urinary tract. Cystoscopy is done using a thin, tube-shaped instrument with a light and camera at the end. After the procedure, it is common to have some soreness or pain in your abdomen and urethra. Watch for any blood in your urine. If the amount of blood in your urine increases, call your health care provider. If you were prescribed an antibiotic medicine, take it as told by your health care provider. Do not stop taking the antibiotic even if you start to feel better. This information is not intended to replace advice given to you by your health care provider. Make sure you discuss any questions you have with your health care provider. Document Revised: 03/01/2022 Document Reviewed: 01/28/2021 Elsevier Patient Education 2023 [employer] Follow Up Care 04/24/2024 13:06:10 With:RUDY CULVER, JAYASHREE, URL Address: When: Unknown [facility] 04-29-2024 Evaluation + Plan note Diagnostic Tests PendingTestosterone Level Total 04/29/24 [facility] 04-23-2024 Note Right Eye Reliability was good. Progression has been stable. Foveal threshold was normal. Findings include normal observations. Left Eye Reliability was good. Progression has been stable. Foveal threshold was normal. Findings include normal observations. [facility] 04-23-2024 History of Present illness Narrative Images from the original note were not included. Assessment/Plan Diagnoses and all orders for this visit: Glaucoma suspect of both eyes - Glaucoma suspect OU - Continue observation, following the findings of IOP, C/D ratio, HVF and OCT ONH. Encouraged patient compliance. Age-related nuclear cataract of both eyes - Cataract, OU: Observe for now without intervention. The patient was advised to contact us if any change or worsening of vision Dry eyes - Dry Eyes OU -- Environmental changes to minimize dryness and exposure and the use of artificial tears were recommended. Blepharitis of upper and lower eyelids of both eyes, unspecified type - Blepharitis, posterior type OU - The patient exhibits inspissated meibomian glands. Warm compresses, lid massage and lid scrubs were recommended. documented in this encounter [facility] 04-21-2024 History of Present illness Narrative Skin Check Location: Patient requests a skin examination from the waist up, A full body skin exam was offered, patient declined Dermatologic history: history of Actinic Keratosis, history of atypical mole(s) Last visit: 1 year ago Established patient All pertinent medical history, medications, and allergies were reviewed. General Exam: alert, oriented to person, place, and time, normal affect, well appearing Accompanied by spouse A complete skin exam was offered, pt declined. Areas not examined despite medical recommendation: From the waist down Scalp, Examined , exam limited by hair Head, Face Examined Neck Examined Chest Examined Back Examined Abdomen Examined Right arm Examined Left arm Examined Hands Examined Digits,nails: Examined Lymphatics: Not examined 1. Seborrheic keratosis Torso - Posterior (Back) Stuck on verrucous, bell-brown papules and plaques. Patient was counseled regarding these benign growths. Removal is normally not necessary, but they may be removed if they are symptomatic or for cosmetic reasons. 2. Angioma of skin (2) Scalp, Torso - Posterior (Back) Scattered cox-red papule(s). The patient was informed that angiomas are benign growths on the the skin. No treatment is necessary. 3. Lentigines Head - Anterior (Face) Scattered bell macules in sun-exposed areas. The patient was informed that lentigines are benign pigmented lesions that occur on sun-exposed and sun-damaged skin. No treatment is necessary. 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 Garzon and Dr. Bautista referred this patient for consultation as regards the chief complaint and related problems. The patient had a history of snoring and stopping breathing in the middle of the night. He was previously diagnosed with Obstructive Sleep Apnea around 15 years ago. Original study unavailable. He had another sleep study in 2019 to get new CPAP supplies. Split-night polysomnography on 06/30/2019 at [facility] demonstrated AHI of 54 events/hour and a jerardo SaO2=86% consistent with Obstructive Sleep Apnea. Following the treatment portion of the split-night study, the patient was set up on CPAP therapy with the PAP set at a final pressure setting of 15 cm H2O. The patient previously saw Dr. Leon for his HARPER. Dr. Leon retired, and the patient presents to [facility] to establish care. History of Present Illness: At follow-up visit on 2022, the CPAP setting was increased from 15 cm H2O to 17 cm H2O. The patient's sleep quality and CPAP therapy have been good. His has no complaints. The patient had his tooth pulled 1 month ago, and he was not using his CPAP mask for a period of time. The patient goes to bed at 8-9 PM. Before bedtime, he takes Flomax, vitamins, and Tylenol as needed. He wakes up once in a while. He wakes up to start his day at 2-3 AM. He feels okay upon awakening. He denies morning headaches or dry cough. The patient gets a little tired at 1 PM. He may doze off on the recliner. He does not fall asleep while driving, during conversations, or inappropriate places. He drinks coffee in the morning and has 1 Coke during the day. Does not take any stimulant medications. [place] Sleepiness Scale: Current total score: 24, Previous total score: 24, and Baseline total score: 10/23 Quality of life Answer each question by shading in the [place] completely. Choose only one answer for each question, please choose the answer that best matches your situation. Mobility 1 1 I have no problem walking about 2 I have some problems walking about 3 I am confined to bed Self-care 1 1 I have no problems with self-care 2 I have some problems with self-care 3 I am unable to dress myself Usual activity 1 1 I have no problems performing my usual activities 2 I have some problems with performing my usual activities 3 I am unable to perform my usual activities Pain/Discomfort 1 1 I have no pain or discomfort 2 I have moderate pain and discomfort 3 I have extreme pain and discomfort Anxiety/Depression 1 1 I am not anxious or depressed 2 I am moderately anxious or depressed 3 I am extremely anxious or depressed To help you communicate how good or bad your health state is, we have drawn a scale on which to gustabo your overall rating of your health. 0 represents your health at its worst, 100 represents your health at its best. Please place an X on the scale to show how good or bad your health is today. 5 10 15 20 25 30 35 40 45 50 55 60 65 70 75 80 85 90 95 100 x PAP Data Downloaded from Patient's PAP Device (if applicable): Settings: Mode: CPAP Mode Settings: CPAP=17 cm H2O and EPR/C-Flex/Bi-Flex=3 Compliance data: 75 total days use in the last 90 days, Over the last 14 days, average daily usage was 6 hrs 55 min 0 sec, and % Days with Usage >= 4 Hours: 86 Leak data: Median (L/min): 8.6 and 95th percentile: (L/min): 24.7 Therapy data: AHI (events/hour): 3.9, Apnea Index: 3.7, Hypopnea Index: 0.2, Obstructive Apnea Index: 0.9, Central (Clear Airway) Apnea Index: 2.8, Unknown Apnea Index: 0.0, RERA Index: 0.0, and % of Night in Periodic Breathing or Saúl-Strokes Respiration: 0 Review of Systems Respiratory: Negative for cough, shortness of breath and wheezing. Cardiovascular: Negative for chest pain and palpitations. Gastrointestinal: Negative for abdominal pain. Genitourinary: Negative for difficulty urinating. Neurological: Negative for headaches. Objective Physical Exam Vitals reviewed. Constitutional: General: He is not in acute distress. Appearance: Normal appearance. He is not ill-appearing, toxic-appearing or diaphoretic. HENT: Head: Normocephalic and atraumatic. Cardiovascular: Rate and Rhythm: Normal rate and regular rhythm. Heart sounds: Normal heart sounds. Pulmonary: Effort: Pulmonary effort is normal. Breath sounds: Normal breath sounds. Neurological: Mental Status: He is alert and oriented to person, place, and time. Psychiatric: Mood and Affect: Mood normal. Behavior: Behavior normal. Thought Content: Thought content normal. Judgment: Judgment normal. Assessment/Plan Impressions: Obstructive Sleep Apnea (G47.33), the patient compliant with and benefiting from CPAP therapy (more content not included)... [facility] 04-05-2023 Evaluation note Encounter Date Diagnosis Assessment Notes Apr, Acute bronchitis due to other specified organisms (ICD-10 - J20.8) Instructed to use Robitussin or Mucinex for cough, saline or Flonase NS for congestion, Tylenol for pain and fever. Apr, Mild intermittent asthma with acute exacerbation (ICD-10 - J45.21) THANIA as needed Agent Partner Other 09-12-2023 Evaluation note* Encounter Date Diagnosis Assessment Notes Treatment Notes Treatment Clinical Notes Mar, Non-recurrent acute serous otitis media of left ear (ICD-10 - H65.02) Mar, Dysfunction of left eustachian tube (ICD-10 - H69.92) Agent Partner Other 09-07-2023 Evaluation note* Encounter Date Diagnosis Assessment Notes Treatment Notes Treatment Clinical Notes Mar, Medicare annual wellness visit, subsequent (ICD-10 - Z00.00) Personalized health advice was given to the beneficiary including a written plan for screenings discussed and provided. Advanced care planning reviewed and/or information given as requested. Additional counseling was provided here today in regards to, [ ]. The above visit was performed by [ ], under direct supervision of [ ]. Document reviewed and amended by provider signed below. Mar, Moderate persistent asthma without complication (ICD-10 - J45.40) Stable w/o use of inhalers. Sinus and allergy triggered. No ER visits for AE INstructed on medication use and to notify office w/ wheezing or coughing Continue GERD precautions Mar, Elevated cholesterol (ICD-10 - E78.00) Instructed on diet and exercise with continued statin therapy.Discussed the beneficial effects of lowering cholesterol in reducing the risk for cerebrovascular and cardiovascular disease. Mar, Gastroesophageal reflux disease with esophagitis without hemorrhage (ICD-10 - K21.00) Diet instructions: Smaller portions, avoid eating and laying flat, avoid eating or drinking prior to bedtime. Weight loss. Mar, Nocturia (ICD-10 - R35.1) Mar, Benign prostatic hyperplasia with lower urinary tract symptoms (ICD-10 - N40.1) Yearly SID and PSA Mar, HARPER (obstructive sleep apnea) (ICD-10 - G47.33) This patient is aware of the benefits associated with HARPER: With continued use, the patient reduces the risk for UT, CVA, HTN, cardiac dysrhythmias and sudden cardiac deaths.The patient is also aware of the association between HARPER and morning headaches, daytime somnolence, fatigue and obesity, which also has been improved with continued use.The patient is compliant with treatment, wearing the equipment every night for greater than 4 hours.The patient is instructed to continue use of the CPAP for HARPER treatment. Mar, Fatigue, unspecified type (ICD-10 - R53.83) check labs: CBC, TSH, BS Mar, Chronic vasomotor rhinitis (ICD-10 - J30.0) Avoid allergens and continue Flonase, Claritin and Sudafed Mar, Lumbar spondylosis (ICD-10 - M47.816) The patient is instructed to avoid bending, twisting or lifting. They are to use intermittent heat and ice as needed. They may schedule a massage or gentle manipulation. They may safely use Tylenol as needed. Mar, High risk medication use (ICD-10 - Z79.899) Check ALT Mar, Screening PSA (prostate specific antigen) (ICD-10 - Z12.5) Yealry SID and PSA Mar, Other UTD w/ CRC scre ening Colonoscopy next year due to 3 bro w/ CRC Increase dietary fiber and continue ASA Agent Partner Other Evaluation noteNo InformationNort [employer] Other Evaluation note* Diagnosis Onset Date Resolution Status Asthma acute GERD (gastroesophageal reflux disease) acute Hypercholesterolemia acute Insomnia acute Lumbar spondylosis acute Medicare annual wellness visit, subsequent acute HARPER (obstructive sleep apnea) acute Screening PSA (prostate specific antigen) acute Screening for colon cancer n [facility] Work Phone: Evaluation note* Diagnosis Onset Date Resolution Status Asthma acute GERD (gastroesophageal reflux disease) acute Hypercholesterolemia acute Insomnia acute Lumbar spondylosis acute Medicare annual wellness visit, subsequent acute Obesity acute HARPER (obstructive sleep apnea) acute Screening PSA (prostate specific antigen) acute Screening for colon cancer n [facility] Work Phone: Evaluation note* Diagnosis Seborrheic keratosis- Primary Angioma of skin Lentigines [facility] Diagnosis Glaucoma suspect of both eyes- Primary Unspecified preglaucoma Age-related nuclear cataract of both eyes Dry eyes Unspecified tear film insufficiency Blepharitis of upper and lower eyelids of both eyes, unspecified type [facility] N[facility] - Reported* Type Description Date Medical History Seasonal allergies Medical History sleep apnea Medical History asthma - mild intermittent Medical History osteoarthritis Medical History BPH Surgical History colonoscopy 2007 Surgical History hernia 2018 Surgical History Colonoscopy 2010 Surgical History Colonoscopy 2014 Surgical History Colonoscopy 2018 Surgical History Colonoscopy, repeat in 3-5 yrs 2020 Hospitalization History see surgical history Agent Partner Other Hospital course Narrative No data available for this section [facility] Progress note No data available for this section [facility] Summary Purpose Family History Relationship Condition Age at Onset Recorded Date/T cal Not Specified Diabetes mellitus Unknown brother Malignant neoplasm of colon Unknown father Unknown mother Unknown Advance Directives Advance Directive Response Recorded Date/ Time Advance Directives No July 15, 2018 3:43pm Chief Complaint and Reason for Visit Chief Complaint Wellness Reason for Visit Asthma GERD (gastroesophageal reflux disease) Hypercholesterolemia Insomnia Lumbar spondylosis Medicare annual wellness visit, subsequent HARPER (obstructive sleep apnea) Screening PSA (prostate specific antigen) Screening for colon cancer Chief Complaint Wellness stomach pain Reason for Visit Asthma GERD (gastroesophageal reflux disease) Hypercholesterolemia Insomnia Lumbar spondylosis Medicare annual wellness visit, subsequent Obesity HARPER (obstructive sleep apnea) Screening PSA (prostate specific antigen) Screening for colon cancer Additional Source Comments (unrecognized sect ion and content) No Status Records FoundNo Status Records FoundNo Status Records FoundNo Status Records FoundNo Status Records FoundNo Status Records Found INFORMATION SOURCE (unrecogn ized section and content) DATE CREATED AUTHOR 06/12/2020 [facility] DATE CREATED AUTHOR AUTHOR'S ORGANIZ ATION 06/11/2021 [facility] DATE CREATED AUTHOR AUTHOR'S ORGANIZ ATION 05/24/[address] [facility] DATE CREATED AUTHOR AUTHOR'S ORGANIZ ATION 11/11/2023 [facility] DATE CREATED AUTHOR AUTHOR'S ORGANIZ ATION 04/22/2024 [facility] EPIC DATE CREATED AUTHOR AUTHOR'S ORGANIZ ATION 04/27/2024 [facility] REASON FOR VISIT (unrecogniz ed section and content) Reason Comments Skin Check Reason Comments Follow-up Care Teams (unrecognized sec tion and content) Personnel Name: RUBEN WOOD DO Address: Address[address] [address] Team Status: Active Member Role Status Dates Ruben Ball , DO Primary Care Provider Active Team Status: Inactive Member Role Status Dates Ruben Wood DO Primary Care Provide r, Attending Provider Active Start: March 20, 2024 End: March 20, 2024 Team Status: Inactive Member Role Status Dates Ruben Wood DO Primary Care Provide r, Attending Provider Active Start: March 27, 2024 End: March 27, 2024 Mover Helper Relationship Specialty Start Date End Date Ruben Wood MD [address] [place] [id number] PCP - General Internal Medicine 04/23/24 Mover Helper Relationship Specialty Start Date End Date Ruben Wood MD [address] [place] [id number] PCP - General Internal Medicine 04/23/24 Goals (unrecognized section and content) Goals may be documented in a n alternate section FOR RECORDS PERTAINING TO PATIENTS WHO ARE OR HAVE BEEN ENROLLED IN A CHEMICAL DEPENDENCY/SUBSTANCEABUSE PROGRAM, SOME INFORMATION MAY BE OMITTED. This clinical summary was aggregated from multiple sources. Caution should be exercised in using it in the provision of clinical care. This summary normalizes information from multiple sources, and as a consequence, information in this document may materially change the coding, format and clinical context of patient data. In addition, data may be omitted in some cases. CLINICAL DECISIONS SHOULD BE BASED ON THE PRIMARY CLINICAL RECORDS. [facility] [employer] provides no warranty or guarantee of the accuracy or completeness of information in this document.
[2024-05-01 04:07] LABS: Testosterone 255 ng/dL (264-916)
== END 2024-04-30 07:17 | disposition home or self-care (01) ==
LOC: LAB 07:16
PROVIDERS: PCP Internal Medicine; Visit Provider Student in an Organized Health Care Education/Training Program
DX: E29.1 Testicular hypofunction (principal)
CPT/HCPCS: 36415; 84403

== ENCOUNTER 2025-05-05 07:17 | Outpatient (OUT) | payer MEDICARE, OTHER, SELFPAY ==
--- OUTSIDE RECORDS SUMMARY | 2025-05-04 09:55 | XMS_ITS | Clinical Summary ---
Author Organization [facility] Address [address] [place] [address] Care Team Providers Care Relay Checker Name Role Phone Dae Simmons MD Unavailable [phone] Ruben Wood DO Primary Care Provider [phone] Allergies Active AllergyReactionsCriticalityNoted DateComments Ejiyrezj-Wynihehvyr-BavasxsufWaswEdbimw51/03/3115Opydafdl-Mskuodyjrbm-Fygotdirb GlimRqtqvi40/20/2023 Medications MedicationSigDispense QuantityRefillsLast FilledStart DateEnd DateStatus testosterone 1.62 % (20.25 mg/1.25 gram) gel in packet Apply 1 packet every day by transdermal route as needed for 30 days.01/26/2015 Active tamsulosin (Flomax) 0.4 mg 24 hr capsule Take 1 capsule every day by oral route.Active sildenafil (Viagra) 100 mg tablet TAKE 1 TABLET BY MOUTH 1 HOUR PRIOR TO LXKFXTNVWCD76/27/2016Active pseudoephedrine (Sudafed) 30 mg tablet Take 1 tablet by mouth in the morning.Active pantoprazole (ProtoNix) 40 mg EC tablet take 1 tablet by mouth ON AN EMPTY STOMACH, 30 MINUTES BEFORE BREAKFASTActive oxymetazoline (Afrin) 0.05 % nasal spray [place] 2 sprays twice a day by intranasal route.Active atorvastatin (Lipitor) 10 mg tablet Take 1 tablet every day by oral route.Active betamethasone dipropionate 0.05 % cream Active diclofenac-misoprostoL (Arthrotec 75) 75-200 mg-mcg EC tablet Active flu vac 2020 65up-syzLE58A,PF, (Fluad Quad 2020-21,65y up,,PF,) 60 mcg (15 mcg x 4)/0.5 mL syringe inject 0.5 milliliters intramuscularlyActive fluticasone (Flonase) 50 mcg/actuation nasal spray Active aspirin 81 mg EC tablet Take 1 tablet every day by oral route.Active anastrozole (Arimidex) 1 mg chemo tablet Take 1 tablet every day by oral route for 90 days.06/27/2016Active acetaminophen-codeine (Tylenol w/ Codeine #3) 300-30 mg tablet 10/22/2023ctive ciprofloxacin (Cipro) 500 mg tablet every 12 (twelve) hours.Active HYDROcodone-acetaminophen ([place]) 5-325 mg tablet take 1 tablet by mouth every 6 hours if needed for mild pain for 3 days 10/15/2023ctive traMADoL-acetaminophen (UltraCET) 37.5-325 mg tablet take 2 tablets by mouth every 4 to 6 hours maximum daily dose of 8 tablets 10/15/2023ctive Active Problems ProblemNoted DateDiagnosed DateAge-related nuclear cataract of both eyes /lepharitis of upper and lower eyelids of both eyes /4Dry eyes/08/2023Glaucoma suspect of both eyes /5788Zirqsbou50/20/2023ecreased testosterone level10/19/2022 Gxbvcuoiu15/20/2023Hypogonadism in male10/19/2022Obstructive sleep apnea Overview (11/07/2022): a. (AHI=54 events/hour; Tommy SaO2=86%; Rhyooh=309 lbs; BMI=37.29 kg/m2, Split- Night on 06/30/2019 at [facility]); b. (previously diagnosed around 2004 at [facility], original study unavailable) Immunizations ImmunizationAdministration DatesNext DueCovid (Pfizer) Bivalent Booster =>12 YRS 04/07/2022Influenza, High-dose Seasonal, Quadrivalent, Preservative Free 04/03/2022Influenza, Seasonal, Quadrivalent, Dimohzewcr39/08/2021Influenza, Opjpyalbcox06/04/2016Influenza, injectable, MDCK, preservative free, hhlodvuaeicz64/21/2019Influenza, injectable, quadrivalent, preservative free 03/22/2020,04/14/2015Influenza, trivalent, svimfdeofp68/04/2018,04/26/2017 Pneumococcal Conjugate PCV 131Pneumococcal Polysaccharide PPV23 04/21/2019Pneumococcal, Ghzrdxbcpfu31/11/2016Unspecified Sars-Cov-2 Vaccination 10/18/2021,04/04/2021,08/24/2020,08/03/2020Zoster, live05/19/2015 Social History Tobacco UseTypesPacks/DayYears UsedDateSmoking Tobacco: FormerCigarettesQuit: 1980Smokeless Tobacco: Never Tobacco Cessation:Counseling Given: Not Answered Alcohol UseStandard Drinks/WeekCommentsYes0 (1 standard drink = 0.6 oz pure alcohol)UT Safety & EnvironmentAnswerDate RecordedFear of Current or Ex-Partner Not on file08/23/2023Emotionally AbusedNot on file08/23/2023hysically AbusedNot on file08/23/2023Sexually AbusedNot on file08/23/2023hysically or Sexually AbusedNot on file08/23/2023Sex and Gender InformationValueDate RecordedSex Assigned at BirthNot on fileLegal ZxgIstq4012/28/2021 10:24 PM EDTGender Identity Not on fileSexual OrientationNot on file Last Filed Vital Signs Vital SignReadingTime TakenCommentsBlood Xilgobhi480/8005 9:39 AM EDT Frwnq832311/07/2024 9:39 AM EDTTemperature--Respiratory Fyoc9059 9:32 AM EDTOxygen Oupbwqxjim46%11/07/2024 9:39 AM EDTInhaled Oxygen Concentration-- Cvgqlr312 kg (280 lb)11/07/2024 9:39 AM WOXJjfydy110.9 cm (6')11/07/2024 9:39 AM EDTBody Mass Index37.9711/07/2024 9:39 AM EDT Plan of Treatment DateTypeDepartmentCare Team (Latest Contact Info)Cjphxnwjbss60/05/2026 9:45 AM EDTFollow-Up [facility] [address] [place] [address] Dae Simmons MD [address] [facility] [address] [facility] [place] [address] Health MaintenanceDue DateLast DoneCommentsMedicare Annual Wellness (AWV) 1948Depression Atnkfiafn28/10/1961dult Xkkiirf7711/08/1970Zoster Vaccines (1 of 2)11/08/199811/Fall Risk Xazzyvygj76/10/2014COVID-19 Vaccine ( season), 04/28/2024, 05/31/2023, Additional history existsInfluenza Vaccine (#1)51, 04/16/2023, 04/03/2022, Additional history existsPneumococcal Vaccine: 50+ ZdmpeAlrxgpmmx78/21/2019, 04/26/2017, 05/12/2016HIB VaccinesAged OutNo longer eligible based on patient's age to complete this topicHPV VaccinesAged OutNo longer eligible based on patient's age to complete this topicIPV VaccinesAged OutNo longer eligible based on patient's age to complete this topicMeningococcal B VaccineAged OutNo longer eligible based on patient's age to complete this topicMeningococcal VaccineAged OutNo longer eligible based on patient's age to complete this topicRotavirus VaccinesAged OutNo longer eligible based on patient's age to complete this topic Insurance Care Teams Team MemberRelationshipSpecialtyStart DateEnd Date Ruben Wood DO [address] [facility] [place] [address] [facility] - [facility]11/08/22 Dae Simmons MD [address] [place] [address] Consulting [facility]11/08/20
--- OUTSIDE RECORDS SUMMARY | 2025-05-04 09:55 | XMS_ITS | Clinical Summary ---
Author Organization [facility] Healthcare Address [address] [place] [address] Care Team Providers Care Circular Clerk Name Role Phone Ruben Wood DO Primary Care Provider [phone] Allergies Active AllergyReactionsCriticalityNoted LfqhAoqiqdxpCmjreesxln77/26/2024 Other Reaction(s): Swelling, rash, blistering, swelling et blisters Mhvdpxyq39/29/2025 Other Reaction(s): Unknown Polymyxin B003/27/2024 Other Reaction(s): Swelling, rash, blistering, swelling et blisters Medications MedicationSigDispense QuantityRefillsLast FilledStart DateEnd DateStatus tamsulosin (Flomax) 0.4 MG 24 hr capsule Take 1 capsule every day by oral route.Active pantoprazole (ProtoNix) 40 MG EC tablet take 1 tablet by mouth ON AN EMPTY STOMACH, 30 MINUTES BEFORE BREAKFASTActive oxymetazoline (Afrin Nasal [place]) 0.05 % nasal spray [place] 2 sprays twice a day by intranasal route.Active loratadine-pseudoephedrine ER (Claritin-D 12 Hour) 5-120 MG 12 hr tablet every 12 (twelve) hours.Active influenza vaccine A&B sa adj quad (Fluad Quadrivalent) syringe inject 0.5 milliliters intramuscularlyActive fluticasone (Flonase) 50 MCG/ACT nasal spray Active Diclofenac-miSOPROStol (ARTHROTEC PO) Take 1 tablet by mouth in the morning and 1 tablet before bedtime.Active betamethasone dipropionate 0.05 % cream Active atorvastatin (Lipitor) 10 MG tablet Take 1 tablet by mouth in the morning.Active aspirin 81 MG EC tablet Take 1 tablet by mouth in the morning.Active traMADol-acetaminophen (UltraCET) 37.5-325 MG tablet take 2 tablets by mouth every 4 to 6 hours maximum daily dose of 8 tablets 10/15/2023ctive levoFLOXacin (Levaquin) 500 MG tablet Take 500 mg by mouth Daily03/27/2024ctive doxepin (Silenor) 6 mg tablet tablet Take 6 mg by mouth as needed at mnatxvd9803/20/2024ctive Active Problems ProblemNoted DateDiagnosed DateGlaucoma suspect of both eyes01/22/2023ge- related nuclear cataract of both eyes01/22/2023ry eyes01/22/2023lepharitis of upper and lower eyelids of both eyes01/22/2023 Encounters DateTypeDepartmentCare OkxfCyrnhtakjpt84/18/2025 8:50 AM EDTOffice Visit [facility] [address] [place] [address] Va De Souza MD Seborrheic keratosis (Primary Dx); Angioma of skin; Lentigines; Skin tag03/19/2025amboo flowsheet [facility] [address] [place] [address] Va De Souza MD 03/19/20251954Zlpkhy82/15/2025Travelfrom Last 3 Months Family History Medical HistoryRelationNameCommentsDiabetesFatherHeart diseaseFatherHypertension FatherDiabetesMotherHeart diseaseMotherHypertensionMotherRelationNameStatus CommentsFatherDeceasedMotherDeceased Social History Tobacco UseTypesPacks/DayYears UsedDateSmoking Tobacco: FormerCigarettesPassive Smoke Exposure: PastSmokeless Tobacco: Never Tobacco Cessation:Counseling Given: Not Answered Alcohol UseStandard Drinks/WeekCommentsYes0 (1 standard drink = 0.6 oz pure alcohol)caffeine 2-3 cups/daySex and Gender InformationValueDate RecordedSex Assigned at BirthNot on fileLegal JhiCqzx5909/13/2022 7:01 PM EDTGender Identity Not on fileSexual OrientationNot on file Last Filed Vital Signs Vital SignReadingTime TakenCommentsBlood Hxyhmvcx498/8011 12:00 PM EST Pulse--Temperature--Respiratory Rate--Oxygen Saturation--Inhaled Oxygen Concentration--Wypspz635 kg (278 lb)05/30/2018 12:00 PM VQJUihqvt057.9 cm (6') 04/18/2021 12:00 PM EDTBody Mass Index37.7107/30/2017 12:00 PM EST Plan of Treatment DateTypeDepartmentCare Team (Latest Contact Info)Xoisfpxgqfc28/05/2025 8:30 AM ESTOffice Visit [facility] [address] [place] [address] Jeferson Curran DO [address] [place] [address] 03/18/2026 8:35 AM EDTOffice Visit [facility] [address] [place] [address] Va De Souza MD [address] [place] [address] Health MaintenanceDue DateLast DoneCommentsDTaP/Tdap/Td Vaccines (1 - Tdap) 6COVID-19 Vaccine ( - season)5107/06/2023, 10/18/2021, 04/04/2021, Additional history existsInfluenza Vaccine (#1)51, 04/16/2023, 04/03/2022, Additional history existsPneumococcal Vaccine: 65+ Years Mmhymkdti04/21/2019, 04/26/2017, 05/12/2016, Additional history existsHIB VaccinesAged OutNo longer eligible based on patient's age to complete this topic HPV VaccinesAged OutNo longer eligible based on patient's age to complete this topicHepatitis A VaccinesAged OutNo longer eligible based on patient's age to complete this topicHepatitis B VaccinesAged OutNo longer eligible based on patient's [...] DateEnd Date Ruben Wood DO [address] [place] [address] PCP - GeneralInternal Eemyegtv34/23/24
--- OUTSIDE RECORDS SUMMARY | 2025-05-05 07:19 | XMS_ITS | Clinical Summary ---
Author Organization [facility] Healthcare Address [address] [place] [address] Care Team Providers Care Brick Veneer Maker Name Role Phone Ruben Wood DO Primary Care Provider [phone] Allergies Active AllergyReactionsCriticalityNoted BwwpLidtkztoVdgeqknvnr77/26/2024 Other Reaction(s): Swelling, rash, blistering, swelling et blisters Mtxgvlzx32/29/2025 Other Reaction(s): Unknown Polymyxin B003/27/2024 Other Reaction(s): Swelling, rash, blistering, swelling et blisters Medications MedicationSigDispense QuantityRefillsLast FilledStart DateEnd DateStatus tamsulosin (Flomax) 0.4 MG 24 hr capsule Take 1 capsule every day by oral route.Active pantoprazole (ProtoNix) 40 MG EC tablet take 1 tablet by mouth ON AN EMPTY STOMACH, 30 MINUTES BEFORE BREAKFASTActive oxymetazoline (Afrin Nasal [place]) 0.05 % nasal spray [place] 2 sprays twice a day by intranasal [...] 6 mg by mouth as needed at metlfnt7403/20/2024ctive Active Problems ProblemNoted DateDiagnosed DateGlaucoma suspect of both eyes01/22/2023ge- related nuclear cataract of both eyes01/22/2023ry eyes01/22/2023lepharitis of upper and lower eyelids of both eyes01/22/2023 Encounters DateTypeDepartmentCare NnfhKgpsyaaygsi48/18/2025 8:50 AM EDTOffice Visit [facility] [address] [place] [address] Va De Souza MD Seborrheic keratosis (Primary Dx); Angioma of skin; Lentigines; Skin tag03/19/2025amboo flowsheet [facility] [address] [place] [address] Va De Souza MD 03/19/20253560Vksfxd41/15/2025Travelfrom Last 3 Months Family History Medical HistoryRelationNameCommentsDiabetesFatherHeart diseaseFatherHypertension FatherDiabetesMotherHeart diseaseMotherHypertensionMotherRelationNameStatus CommentsFatherDeceasedMotherDeceased Social History Tobacco UseTypesPacks/DayYears UsedDateSmoking Tobacco: FormerCigarettesPassive Smoke Exposure: PastSmokeless Tobacco: Never Tobacco Cessation:Counseling Given: Not Answered Alcohol UseStandard Drinks/WeekCommentsYes0 (1 standard drink = 0.6 oz pure alcohol)caffeine 2-3 cups/daySex and Gender InformationValueDate RecordedSex Assigned at BirthNot on fileLegal PrrXfwu4909/13/2022 7:01 PM EDTGender Identity Not on fileSexual OrientationNot on file Last Filed Vital Signs Vital SignReadingTime TakenCommentsBlood Bimidbax425/8011 12:00 PM EST Pulse--Temperature--Respiratory Rate--Oxygen Saturation--Inhaled Oxygen Concentration--Ukbirc339 kg (278 lb)05/30/2018 12:00 PM OCLJracge625.9 cm (6') 04/18/2021 12:00 PM EDTBody Mass Index37.7107/30/2017 12:00 PM EST Plan of Treatment DateTypeDepartmentCare Team (Latest Contact Info)Schlmvekrxu45/05/2025 8:30 AM ESTOffice Visit [facility] [address] [place] [address] Jeferson Curran DO [address] [place] [address] 03/18/2026 8:35 AM EDTOffice Visit [facility] [address] [place] [address] Va De Souza MD [address] [place] [address] Health MaintenanceDue DateLast DoneCommentsDTaP/Tdap/Td Vaccines (1 - Tdap) 6COVID-19 Vaccine ( - season)5107/06/2023, 10/18/2021, 04/04/2021, Additional history existsInfluenza Vaccine (#1)51, 04/16/2023, 04/03/2022, Additional history existsPneumococcal Vaccine: 65+ Years Rjjdzanvm92/21/2019, 04/26/2017, 05/12/2016, Additional history existsHIB VaccinesAged OutNo [...] DateEnd Date Ruben Wood DO [address] [place] [address] PCP - GeneralInternal Meeqhjvf61/23/24
--- OUTSIDE RECORDS SUMMARY | 2025-05-05 07:19 | XMS_ITS | Clinical Summary ---
Author Organization [facility] Address [address] [place] [address] Care Team Providers Care Hardware Test Engineer Name Role Phone Dae Simmons MD Unavailable [phone] Ruben Wood DO Primary Care Provider [phone] Allergies Active AllergyReactionsCriticalityNoted DateComments Hqtlcies-Lbvfpivesc-FxbbjrjheWxvwMkkaeg09/03/2727Nrkfciyc-Uphjzfvpxcu-Yhcwiymld OkhaUlncbt46/20/2023 Medications MedicationSigDispense QuantityRefillsLast FilledStart DateEnd DateStatus testosterone 1.62 % (20.25 mg/1.25 gram) gel in packet Apply 1 packet every day by transdermal route as needed for 30 days.01/26/2015 Active tamsulosin (Flomax) 0.4 mg 24 hr capsule Take 1 capsule every day by oral route.Active sildenafil (Viagra) 100 mg tablet TAKE 1 TABLET BY MOUTH 1 HOUR PRIOR TO EKITSSQAHQD84/27/2016Active pseudoephedrine (Sudafed) 30 mg tablet Take 1 tablet by mouth in the morning.Active pantoprazole (ProtoNix) 40 mg EC tablet take 1 tablet by mouth ON AN EMPTY STOMACH, 30 MINUTES BEFORE BREAKFASTActive oxymetazoline (Afrin) 0.05 % nasal spray [place] 2 sprays twice a day by intranasal route.Active atorvastatin (Lipitor) 10 mg tablet Take 1 tablet every day by oral route.Active betamethasone dipropionate 0.05 % cream Active diclofenac-misoprostoL (Arthrotec 75) 75-200 mg-mcg EC tablet Active flu vac 2020 65up-kmgJB13A,PF, (Fluad Quad 2020-21,65y up,,PF,) 60 mcg (15 [...] mg tablet every 12 (twelve) hours.Active HYDROcodone-acetaminophen ([place]) 5-325 mg tablet take 1 tablet by [...] eyes /4Dry eyes/08/2023Glaucoma suspect of both eyes /3817Azxnyhia06/20/2023ecreased testosterone level10/19/2022 Gwqlmsojt76/20/2023Hypogonadism in male10/19/2022Obstructive sleep apnea Overview (11/07/2022): a. (AHI=54 events/hour; Tommy SaO2=86%; Uthgtx=920 lbs; BMI=37.29 kg/m2, Split- Night on 06/30/2019 at [facility]); b. (previously diagnosed around 2004 at [facility], original study unavailable) Immunizations ImmunizationAdministration DatesNext DueCovid (Pfizer) Bivalent Booster =>12 YRS 04/07/2022Influenza, High-dose Seasonal, Quadrivalent, Preservative Free 04/03/2022Influenza, Seasonal, Quadrivalent, Tsxtuzfepg76/08/2021Influenza, Ejasbngjxuv98/04/2016Influenza, injectable, MDCK, preservative free, ewyesbpwtkfi94/21/2019Influenza, injectable, quadrivalent, preservative free 03/22/2020,04/14/2015Influenza, trivalent, umvbqzxjmv71/04/2018,04/26/2017 Pneumococcal Conjugate PCV 131Pneumococcal Polysaccharide PPV23 04/21/2019Pneumococcal, Pddqeryjrtg09/11/2016Unspecified Sars-Cov-2 Vaccination 10/18/2021,04/04/2021,08/24/2020,08/03/2020Zoster, live05/19/2015 Social History Tobacco [...] InformationValueDate RecordedSex Assigned at BirthNot on fileLegal KxvMbwz6812/28/2021 10:24 PM EDTGender Identity Not on fileSexual OrientationNot on file Last Filed Vital Signs Vital SignReadingTime TakenCommentsBlood Avehvxgn025/8005 9:39 AM EDT Wjqej569911/07/2024 9:39 AM EDTTemperature--Respiratory Oopt5789 9:32 AM EDTOxygen Wlmvwbhgcn40%11/07/2024 9:39 AM EDTInhaled Oxygen Concentration-- Gltgsg136 kg (280 lb)11/07/2024 9:39 AM PZYSfmiss966.9 cm (6')11/07/2024 9:39 AM EDTBody Mass Index37.9711/07/2024 9:39 AM EDT Plan of Treatment DateTypeDepartmentCare Team (Latest Contact Info)Qtllvyeyzto54/05/2026 9:45 AM EDTFollow-Up [facility] [address] [place] [address] Dae Simmons MD [address] [facility] [address] [place] [address] Health MaintenanceDue DateLast DoneCommentsMedicare Annual Wellness (AWV) 1948Depression Ehuemdnxv99/10/1961dult Etawfyi7411/08/1970Zoster Vaccines (1 of 2)11/08/199811/Fall Risk Qdknuwypi88/10/2014COVID-19 Vaccine ( season), 04/28/2024, 05/31/2023, Additional history existsInfluenza Vaccine (#1)51, 04/16/2023, 04/03/2022, Additional history existsPneumococcal Vaccine: 50+ EjmhdJzpiktszz00/21/2019, 04/26/2017, 05/12/2016HIB VaccinesAged OutNo longer eligible based [...] DateEnd Date Ruben Wood DO [address] [facility] [place] [address] [facility] - [facility]11/08/22 Dae Simmons MD [address] [place] [address] Consulting [facility] [place]11/08/20
--- OUTSIDE RECORDS SUMMARY | 2025-05-05 07:20 | XMS_ITS | CCD ---
Author Organization [facility] Care Team Providers Care Enterostomal Therapy Nurse Name Role Phone DR RUBEN SHEA Consulting Unavailable MONSE, DR CHILDRESS Primary Care Unavailable MONSE, DR CHILDRESS Admitting Unavailable MONSE, DR CHILDRESS Attending Unavailable MONSE, DR CHILDRESS Primary Care Unavailable MONSE, DR CHILDRESS Admitting Unavailable MONSE, DR CHILDRESS Attending Unavailable MONSE, DR CHILDRESS Consulting Unavailable Ruben Shea Unavailable Unavailable Primary Care Provider UnavailRuben Diego MD Primary Care Provider RUBEN SHEA Primary Care Physician Ruben Shea DO Primary Care Provider [phone] Jayashree Jin MD Attending Provider Ruben Shea Primary Care Unavailable Asaad, Imad Attending Unavailable Asaad, Imad Admitting Unavailable Nkansah-Amank, Jayashree Admitting Unavail able Ruben Shea Primary Care Unavailable Nkansah-AmankraJayashree Attending Unavail able NKANSAH-AMANK, JAYASHREE Attending Unavail able NKANSAH-AMCHAU, JAYASHREE Referring Unavail able NKANSAH-AMANKRA, JAYASHREE Admitting Unavail able NKANSAH-AMANK, JAYASHREE Attending Unavail able NKANSAH-AMANK, JAYASHREE Attending Unavail able RUBEN SHEA Referring Unavailable MD JAYASHREE JIN Referring Unav ailable MD JAYASHREE JIN Admitting Unav ailable MD JAYASHREE JIN Attending Unav ailable MD JAYASHREE JIN Referring Unav ailable MD JAYASHREE JIN Admitting Unav ailable MD JAYASHREE JIN Attending Unav ailable NKANSAH-AMANKRA, JAYASHREE Admitting Unavail able NKANSAH-AMANKRA, JAYASHREE Attending Unavail able NKANSAH-AMANKRA, JAYASHREE Referring Unavail able Rusty CULVER, April Attending Provider NKANSAH-AMANKRA, JAYASHREE Admitting Unavail able NKANSAH-AMANKRA, JAYASHREE Attending Unavail able NKANSAH-AMANKRA, JAYASHREE Referring Unavail able NKANSAH-AMANKRA, JAYASHREE Attending Unavail able Ruben Shea MD Primary Care Provider MITZY EISENBERG Attending Unavailable NKANSAH-AMANKRA, JAYASHREE Attending Unavail able Ruben Shea DO Primary Care Provider MAGO TRAVIS Attending Unavailable MARLEN, ABBY Boyd Attending Unavailable PETITTMariza, ABBY Boyd Attending Unavailable MAGO TRAVIS Attending Unavailable MUKUNDKATY HARRIS Attending Unavailable Ruebn Shea DO Primary Care Provider Ruben Shea DO Attending Provider Allergies Allergy ClassificationReported Allergen(s)Allergy TypeDate of OnsetReaction(s) Facility (5 sources)Bacitracin / Neomycin / Polymyxin BDrug Allergyswelling et blisters [facility] [employer] Other (20 sources)Bacitracin; Translations: [bacitracin]Drug Viirnyl97-84-4093Ptjrfca (qualifier value)[facility] (20 sources)Neomycin; Translations: [Neomycin]Drug Mflutor80-48-4846Mxivyqy (qualifier value)[facility] (20 sources)polymyxin B; Translations: [polymyxin B]Allergy to substance 27-66-4729Suquvdbs, rash, blistering, swelling et blistersProm[facility]ica Bay Park Hospital (11 sources)polymyxin B ophthalmic; Translations: [polymyxin B ophthalmic]Drug allergyUnknown (qualifier value)[facility] (1 source)PPPQHROX-BMUHURZQWU-MNQQOZNCT; Translations: [IBNXUYMG-YKPGEVADCE-QLMTIYXSX]Propensity to adverse reactions to drug (disorder)84-47-6885YnutzexpptACMC Healthcare System [facility] (1 source)HGEXZWCS-ETNTEWMGNHL-GZPAJVSCE; Translations: [FDBZUYZX-JAEHCIVJHBT-GLHPUEOAN]Propensity to adverse reactions to drug (disorder)99-24-4042YnsooedmpiACMC Healthcare System Repository Medications Current Medications MedicationDrug Class(es)DatesSig (Normalized)Sig (Original)acetaminophen 300 mg / codeine phosphate 30 mg oral tablet (12 sources)Opioid AgonistStart: 10-22-2023 End: 43-11-0839xnjmqmdzfosyh-codeine (Tylenol w/ Codeine #3) 300-30 MG tablet 10/22/2023 10/28/2024 Discontinuedacetaminophen 325 mg / HYDROcodone bitartrate 5 mg oral tablet (12 sources)Opioid AgonistStart: 10-15-2023 End: 64-77-2394tmng 1 tablet by mouth every six hours for painHYDROcodone- acetaminophen ([place]) 5-325 MG tablet take 1 tablet by mouth every 6 hours if needed for mild pain for 3 days 10/15/2023 10/28/2024 Discontinuedacetaminophen 325 mg / traMADol hydrochloride 37.5 mg oral tablet (15 sources)Opioid AgonistStart: 44-57-4076srnZPNoo-acetaminophen (UltraCET) 37.5-325 MG tablet take 2 tablets by mouth every 4 to 6 hours maximum daily dose of 8 tablets 10/15/2023 ActiveAfrin Allergy Sinus (4 sources)Start: 15-75-0772Gjfmw Allergy Sinus 2 spray(s), Nasal, Bedtime, Refill(s) 0, Allergy symptoms Start Date: 07/03/24 Status: Ordered Repeat number: 1Start: 57-39-6087Mjqxm Allergy Sinus 2 spray(s), Nasal, Bedtime, Refill(s) 0, Allergy symptoms Start Date: 07/03/24 Status: OrderedStart: 48-33-8486Vklud Allergy Sinus Nasal, Bedtime, Refill(s) 0 Start Date: 07/03/24 Status: Ordered amoxicillin 875 mg / clavulanate 125 mg oral tablet (4 sources)Penicillin-class Antibacterialtake 1 tablet by mouth every twelve hoursAmoxicillin-Pot Clavulanate 875-125 MG 1 tablet Orally every 12 hrs w/ food for 7 days Activeaspirin 81 mg oral capsule (20 sources)Platelet Aggregation Inhibitor, Nonsteroidal Anti-inflammatory Drug Start: 22-67-6767pvqa 1 capsule by mouth once dailyaspirin 81 mg oral capsule 81 mg = 1 cap(s), Oral, Daily, Refills(s) 0, Prophylaxis Start Date: 07/03/24 Status: Ordered Repeat number: 1Start: 98-66-3881Ckvkfrw (Adult Low Dose Aspirin) 81 mg tablet,delayed release (DR/EC) Active 81 MG PO Daily March 20, 2024 12:00am Complies with drug therapyStart: 07-16-2018 End: 84-03-3690pmwl 1 tablet by mouth once dailyAspirin 325 mg Tablet Discontinued 325 MG PO Daily July 16, 2018 1:00am March 20, 2024 9: 01amatorvastatin 10 mg oral tablet (20 sources)HMG-CoA Reductase InhibitorStart: 96-98-7331ncaw 1 tablet by mouth every other dayatorvastatin 10 mg Tab 10 mg = 1 tab(s), Oral, Every other day, High cholesterol Start Date: 04/29/24 Status: Ordered Repeat number: 1Start: 02-18-2024 End: 53-13-4870Gvhcdnohsnzr 10 mg tablet Active 0 .ROUTE .COMPLEX 90 February 10, 2025 7:40am TAKE 1 TABLET ONCE DAILY Complies with drug therapyStart: 54-46-4719qaletvradzne 10 mg Tab 10 mg = 1 tab(s) Start Date: 04/29/24 Status: OrderedStart: 07-16-2018 End: 74-29-8448Vlmfviobgnvm 10 mg tablet Discontinued 10 MG PO Q48H July 16, 2018 1:00am February 18, 2024 11:46amazithromycin 250 mg oral tablet (3 sources)Macrolide AntimicrobialStart: 26-89-6425Wsrxyvmmwiqc 250 MG as directed Orally daily for 5 days Apr, Activebetamethasone 0.5 mg/ml topical cream (15 sources)Corticosteroidbetamethasone dipropionate 0.05 % cream ActiveCalcium Carbonate-Vitamin D3 500 mg(1,250mg) -50 unit capsule (1 source)Start: 76-93-8336Nxiurjy Carbonate-Vitamin D3 500 mg(1,250mg) -50 unit capsule Active CAP PO October 2nd, 2025 12:00am Complies with drug therapy Calcium Citrate / Vitamin D (4 sources)Start: 24-14-1613wlepyaj-vitamin D See Instructions, Refill(s) 0, Prophylaxis Start Date: 07/03/24 Status: Ordered Repeat number: 1Start: 07-03-2024 calcium-vitamin D See Instructions, Refill(s) 0, Prophylaxis Start Date: 07/03/24 Status: OrderedStart: 01-48-5627ojadxea-vitamin D Refill(s) 0 Start Date: 07/03/24 Status: Orderedciprofloxacin 500 mg oral tablet (14 sources)Quinolone AntimicrobialStart: 82-40-9445pogo 1 tablet by mouth twice dailyCipro 500 mg Tab 500 mg = 1 tab(s), Oral, BID, Start the day prior to procedure., # 6 tab(s), Refills(s) 0, Pharmacy: [facility] - [id number], 183, cm, 04/29/24 14:04:00 EDT, Height/Length Dosing,122.5, kg, 04/29/24 14:04:00 EDT, Weight Dosing Start Date: 04/29/24 Status: Ordered End: 35-84-3500qrivndgoxcgoe (Cipro) 500 MG tablet every 12 (twelve) hours. 10/28/2024 Discontinueddiclofenac sodium 75 mg / miSOPROStol 0.2 mg delayed release oral tablet (20 sources)Nonsteroidal Anti-inflammatory Drug, Prostaglandin E1 AnalogStart: 30-53-7604cena 1 tablet by mouth twice dailydiclofenac-misoprostol 75 mg-200 mcg oral delayed release tablet 1 tab(s), Oral, BID, Arthritis Start Date: 04/29/24 Status: Ordered Repeat number: 1Start: 65-49-3161fhzv 1 tablet by mouth once dailydiclofenac-misoprostol 75 mg-200 mcg oral delayed release tablet 1 tab(s), Oral, Daily, Arthritis Start Date: 04/29/24 Status: OrderedStart: 04-29-2024 diclofenac-misoprostol 75 mg-200 mcg oral delayed release tablet 1 tab(s) Start Date: 04/29/24 Status: OrderedStart: 02-18-2024 End: 25-04-4232Quoztbnfzx-Misoprostol 75-200 mg-mcg tablet,IR,delayed rel,biphasic Active 0 .ROUTE .COMPLEX 180 February 10, 2025 7:40am TAKE 1 TABLET TWICE A DAY Complies with drug therapyStart: 07-16-2018 End: 30-71-4204xmzq 1 tablet by mouth once daily in the morningDiclofenac- Misoprostol (Arthrotec 50) 50-200 mg-mcg Tablet,Ir,Delayed Rel,Biphasic Discontinued 1 TAB PO Every morning July 16, 2018 1:00am February 18, 2024 11:46amtake 1 tablet by mouth in the morningDiclofenac-miSOPROStol (ARTHROTEC PO) Take 1 tablet by mouth in the morning and 1 tablet before bedtime. Active take 1 tablet by mouth every twelve hoursArthrotec 75-0.2 MG 1 tablet with food Orally Twice a day ActiveDiclofenac-miSOPROStol 75-0.2 MG TAKE 1 TABLET TWICE A DAY for 90 Not-Takingferrous sulfate 325 mg oral tablet (1 source)Start: 18-72-8038ioov 1 tablet by mouth once dailyFerrous Sulfate 325 mg (65 mg iron) tablet Active 325 MG PO Daily April 02, 2025 12:00am Complies with drug therapyfluticasone propionate 0.05 mg/actuat metered dose nasal spray (20 sources)CorticosteroidStart: 48-09-2387xtuzncgrtuh Nasal 0.05 mg/inh [place] 1 spray(s), Nasal, Daily, Allergy symptoms Start Date: 04/29/24 Status: Ordered Repeat number: 1Start: 02-18-2024 End: 96-75-2846iskz 2 spray(s) nasal route once dailyFluticasone Propionate 50 mcg/actuation spray,suspension Active 0 .ROUTE .COMPLEX 48 February 10, 2025 7:40am USE 2 SPRAYS IN EACH NOSTRIL ONCE DAILY Complies with drug therapyStart: 38-47-8464dtjo 2 spray(s) nasal route once dailyFluticasone Propionate 50 MCG/ACT 2 sprays each nostril Nasally Once a day for 90 days Mar,ctive Start: 06-07-2021 End: 53-99-5792Epnnjyhliug Furoate 27.5 mcg/actuation Paulina,Suspension Discontinued 1 SPRAY INTRANASAL Daily as needed for Allergy Symptoms June 07, 2021 1:00am February 18, 2024 11:46amStart: 98-87-9345ctya 2 spray(s) nasal route once dailyFLONASE 50 mcg 2 sprays each NOSTRIL intranasally qd for 10 day(s) Aug, Activefluticasone (Flonase) 50 MCG/ACT nasal spray Active Iron 100 Plus (4 sources)Start: 75-79-9356mhfb 1 tablet by mouth once dailyIron 100 Plus 1 tab(s), Oral, Daily, Refill(s) 0, Prophylaxis Start Date: 07/03/24 Status: Ordered Repeat number: 1Start: 57-40-9827qgkd 1 tablet by mouth once dailyIron 100 Plus 1 tab(s), Oral, Daily, Refill(s) 0, Prophylaxis Start Date: 07/03/24 Status: OrderedStart: 76-22-5546Reup 100 Plus Refill(s) 0 Start Date: 07/03/24 Status: Cltnvwy89 hr loratadine 5 mg / pseudoephedrine sulfate 120 mg extended release oral tablet (15 sources)alpha-Adrenergic Agonistloratadine-pseudoephedrine ER (Claritin-D 12 Hour) 5-120 MG 12 hr tablet every 12 (twelve) hours. ActiveMultivitamin preparation (1 source)Start: 60-29-8315uhptqtoflqiy Refill(s) 0 Start Date: 07/03/24 Status: OrderedNasal Paulina 0.05 % (2 sources)take 2 spray(s) nasal route at bedtimeNasal Paulina 0.05 % 2 sprays Nasally bedtime Activeoxymetazoline hydrochloride 0.5 mg/ml nasal spray (20 sources)Start: 45-66-0617Kihnmfgksvwvh (Afrin (Oxymetazoline)) 0.05 % Paulina,Non-Aerosol Active 2 SPRAY INTRANASAL Daily at bedtime as needed for Nasal Congestion July 17, 2018 1:00am Complies with drug therapyoxymetazoline (Afrin Nasal Paulina) 0.05 % nasal spray Paulina 2 sprays twice a day by intranasal route. Activetake 2 spray(s) nasal route at bedtimeNasal Paulina 0.05 % 2 sprays Nasally bedtime Activepantoprazole 40 mg delayed release oral tablet (20 sources)Proton Pump InhibitorStart: 80-97-6124oahr 1 tablet by mouth once dailyPantoprazole [address] Tab 40 mg = 1 tab(s), Oral, Daily, Indigestion Start Date: 04/29/24 Status: Ordered Repeat number: 1Start: 02-18-2024 End: 41-96-4798Xqcfmgwrxzkz 40 mg tablet,delayed release (DR/EC) Active 0 .ROUTE .COMPLEX February 10, 2025 7:40am TAKE 1 TABLET ONCE DAILY INTHE MORNING ON AN EMPTY STOMACH FOLLOWED IN 30 MINUTES BY BREAKFAST Complies with drug therapy Start: 33-09-4553Iynbyykwrdwr Active 0 .ROUTE .COMPLEX February 18, 2024 11:46am TAKE 1 TABLET ONCE DAILY INTHE MORNING ON AN EMPTY STOMACH FOLLOWED IN 30 MINUTES BY BREAKFASTStart: 06-07-2021 End: 98-31-0079jxkt 1 tablet by mouth once dailyPantoprazole 40 mg tablet,delayed release (DR/EC) Discontinued 40 MG PO Daily June 07, 2021 1:00am February 18, 2024 11:46amPantoprazole 40 mg tablet,delayed release (DR/EC) (2 sources)Start: 50-37-0703Toaxvloskzzv 40 mg tablet,delayed release (DR/EC) Active 0 .ROUTE .COMPLEX February 18, 2024 10:46am TAKE 1 TABLET ONCE DAILY INTHE MORNING ON AN EMPTY STOMACH FOLLOWED IN 30 MINUTES BY BREAKFASTpredniSONE 20 mg oral tablet (7 sources)Start: 36-87-0289yice 1 tablet by mouth twice dailypredniSONE 20 MG 1 tablet Orally twice daily w/ food for 5 days Apr, Activepseudoephedrine hydrochloride 30 mg oral tablet (17 sources)alpha-Adrenergic Agonist End: 63-40-8161iaeq 1 tablet by mouth in the morningpseudoephedrine (Sudafed) 30 MG tablet Take 1 tablet by mouth in the morning. 10/28/2024 Discontinuedtake 1 tablet by mouth once dailySudafed 30 MG 1 tablet Orally daily for 90 days Active psyllium 3400 mg powder for oral suspension (10 sources)Start: 62-43-8055Hufzvpvc Husk (Metamucil) 3.4 gram/5.4 gram Powder Active 1 TBSP PO Daily July 17, 2018 1:00amComplies with drug therapy Metamucil 28 % 1 packet with 8 ounces of liquid as needed Orally Once a day Active Completed/Discontinued Medications MedicationDrug Class(es)DatesSig (Normalized)Sig (Original)acetaminophen 325 mg / dextromethorphan hydrobromide 10 mg / guaiFENesin 100 mg / phenylephrine hydr ochloride 5 mg oral tablet (1 source)Uncompetitive P-yptxip-F-aspartate Receptor Antagonist, Sigma-1 Agonist, alpha-1 Adrenergic AgonistStart: 06-07-2021 End: 11-95-7257Uxqrcwrqh-Nv-Ojrhkuuz-Lxfnldg (Sudafed Pe Head Congestion-Flu) 5-21-768-100 mg Tablet Discontinued 1 TAB PO As Directed June 07, 2021 1:00am March 20, 2024 9:[id number] 200 actuat albuterol 0.09 mg/actuat metered dose inhaler (5 sources)beta2-Adrenergic AgonistStart: 62-67-1765nqoy 2 puff(s) by inhalation every six hours as neededAlbuterol Sulfate HFA 108 (90 Base) MCG/ACT Albuterol Sulfate HFA 108 (90 Base)MCG/ACT, 2 (two) Puff every six hours, as needed # 1, 04/03/2019, Ref. x5. Active Inhalation every six hours, as needed for Apr, Not-TakingStart: 92-37-7706haoh 2 puff(s) by inhalation every six hours as neededAlbuterol Sulfate HFA 108 (90 Base) MCG/ACT Albuterol Sulfate HFA 108 (90 Base)MCG/ACT, 2 (two) Puff every six hours, as needed # 1, 04/03/2019, Ref. x5. Active Inhalation every six hours, as needed for Apr, Not-Taking dextromethorphan hydrobromide 1.5 mg/ml / pyrilamine maleate 1.5 mg/ml oral solution (5 sources)Uncompetitive E-zofuss-W-aspartate Receptor Antagonist, Sigma-1 AgonistStart: 01-11-0685Ubsczn DM 7.5-7.5 MG/5ML 10 ml Orally every 6-8 hours as needed for 8 days Dec, Not-Takingdoxepin 6 mg oral tablet (18 sources)Tricyclic AntidepressantStart: 03-20-2024 End: 09-16-9680vkwx 1 tablet by mouth once daily at bedtime as needed for sleep Doxepin 6 mg tablet Discontinued 6 MG PO Daily at bedtime as needed for sleep March 12:00am April 02, 2025 9:32amglycerin 2 mg/ml / hypromellose 2 mg/ml / polyethylene glycol 400 10 mg/ml ophthalmic solution (5 sources)Non-Standardized Chemical AllergenStart: 06-07-2021 End: 37-75-1867Klj 099-Zryvcjdiyhsz-Nboyqrpl 1-0.2-0.2 % Drops Discontinued 1 DROPS EYE-BOTH As Directed as neededfor Dry Eyes June 07, 2021 1:00am March 20, 2024 9:03amStart: 06-07-2021 End: 47-34-2167Wry 152-Exizzrnqunye-Kkvanhul 1-0.2-0.2 % Drops Discontinued 1 DROPS EYE-BOTH As Directed as neededfor Dry Eyes June 07, 2021 12:00am March 20, 2024 8:03amlevoFLOXacin 500 mg oral tablet (18 sources)Quinolone AntimicrobialStart: 03-27-2024 End: 91-85-5565ayqi 1 tablet by mouth once dailyLevofloxacin 500 mg tablet Discontinued 500 MG PO Daily March 27, 2024 12:00am 2023 2:40pmloratadine 10 mg oral tablet (10 sources)Start: 07-16-2018 End: 86-05-6969jacc 1 tablet by mouth once dailyLoratadine (Claritin) 10 mg Tablet Discontinued 10 MG PO Daily July 16, 2018 1:00am April 02, 2025 9:32ammethylPREDNISolone 4 mg oral tablet (5 sources)CorticosteroidStart: 92-31-2320Ifhtnr (Avi) 4 MG half of daily dose in the morning with food and the rest at night with food Orally Dec, Not-Takingnabumetone 750 mg oral tablet (5 sources)Nonsteroidal Anti-inflammatory DrugNabumetone 750 MG as directed Orally Not-Takingondansetron 4 mg disintegrating oral tablet (15 sources)Serotonin-3 Receptor AntagonistStart: 03-27-2024 End: 64-61-1204cobe 1 tablet by mouth every eight hours as needed for nausea and vomitingOndansetron 4 mg tablet,disintegrating Discontinued 4 MG PO Every 8 hours as needed for nausea and vomiting 9 3 March 27, 2024 12:00am May 08, 2024 2:08kmPuaauuddd-Oi-Seyimotm-Guaifen (Sudafed Pe Head Congestion-Flu) 5-39-543-100 mg Tablet (4 sources)Start: 06-07-2021 End: 02-92-6765Nrqyvxxif-Je-Yzfitowb-Abfhrrl (Sudafed Pe Head Congestion-Flu) 0-27-514-100 mg Tablet Discontinued 1 TAB PO As Directed June 07, 2021 12:00am March 20, 2024 8:03amStart: 06-07-2021 End: 06-82-8825Eefrkqclb-Mj-Mkvfljle-Wsilitc (Sudafed Pe Head Congestion-Flu) 0-21-401-100 mg Tablet Discontinued 1 TAB PO As Directed June 07, 2021 1:00am March 20, 2024 9:03amProAir HFA 108 (90 Base) MCG/ACT (5 sources)Start: 75-66-6702sids 2 puff(s) by inhalation every four to six hours as neededProAir HFA 108 (90 Base) MCG/ACT 2 puffs as needed Inhalation every 4- 6 hrs Dec, Not-Takingtamsulosin hydrochloride 0.4 mg oral capsule (20 sources)alpha-Adrenergic BlockerStart: 05-19-2024 End: 30-45-6772Cgbgavvwhb 0.4 mg capsule Discontinued 0 .ROUTE .COMPLEX May 19, 2024 10:44am April 02, 2025 9:32am TAKE 1 CAPSULE ONCE DAILY Start: 78-21-1972Crnsjxtukr 0.4 mg capsule Active 0 .ROUTE .COMPLEX May 19, 2024 9:44am TAKE 1 CAPSULE ONCE DAILYStart: 07-16-2018 End: 96-54-8729fzrn 1 capsule by mouth once dailyTamsulosin (Flomax) 0.4 mg capsule Discontinued 0.4 MG PO Daily July 16, 2018 1:00am May 19, 2024 10:44am Problems Active Problems Problem ClassificationProblemDateDocumented DateEpisodic/ChronicAcute bronchitis (1 source)Acute bronchitis due to other specified organismsEpisodicAsthma (20 sources)Uncomplicated moderate persistent asthma; Translations: [Moderate persistent asthma, uncomplicated]ChronicCalculus of urinary tract (1 source)Kidney stone; Translations: [Calculus of kidney]20-99-9316Vzjnyrhh Cataract (16 sources)Bilateral age-related nuclear cataracts; Translations: [Age-related nuclear cataract, bilateral]Onset: 002898-22-7736CscoeclAiddyztkfx and other anemia (4 sources)Anemia, unspecified; Translations: [ANEMIA UNSPECIFIED]Onset: 20-54-0305EcztnvgwCvnijbkia of lipid metabolism (20 sources)Familial hypercholesterolemia; Translations: [Hypercholesterolemia] Onset: 74-43-6813YhmpjecLkcuibbwwuxsqh and diverticulitis (5 sources)Diverticulosis of sigmoid colon; Translations: [Diverticulosis of large intestine without perforation or abscess without bleeding]Chronic Esophageal disorders (20 sources)Gastro-esophageal reflux disease with esophagitis; Translations: [Gastroesophageal reflux disease with esophagitis without hemorrhage]Onset: 342433-39-4985WjabubfUsfycmkzf hypertension (11 sources)Hypertensive disorder; Translations: [Essential (primary) hypertension]75-21-1526JbtssfyZqpygwccwndmg symptoms and ill-defined conditions (19 sources)Nocturia; Translations: [Retention of urine]Onset: 04-29-2024 EpisodicGlaucoma (17 sources)Preglaucoma, unspecified, bilateral; Translations: [Preglaucoma, unspecified]Onset: 458295-97-0221XvedjozYnxgckvbdty of prostate (20 sources)Nocturia due to benign prostatic hypertrophy; Translations: [Benign prostatic hyperplasia with lower urinary tract symptoms]Onset: 50-67-0396Pmhkyam Inflammatory conditions of male genital organs (8 sources)Acute prostatitis; Translations: [Acute prostatitis]04-29-2024 EpisodicMalaise and fatigue (1 source)Other fatigueEpisodicMelanomas of skin (5 sources)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; Translations: [Melanoma in situ of nose]ChronicNausea and vomiting (2 sources)Nausea; Translations: [Nausea]55-85-7831DxbgerhaEfclc aftercare (2 sources)Other joint terminal attack controller (current) drug therapy; Translations: [[facility] CURRENT DRUG THERAPY]Onset: 86-11-3821OxgkoooyIkxnc aftercare (1 source)Long-term current use of drug therapy; Translations: [Other joint terminal attack controller (current) drug therapy]Onset: 06-12-7448LbxtgsokSiaab and unspecified benign neoplasm (4 sources)Skin lesion; Translations: [Hemangioma of skin and subcutaneous tissue]45-08-0374FwaoesdxOjwki and unspecified benign neoplasm (2 sources)Adenomatous polyp of colon ; Translations: [Benign neoplasm of colon, unspecified]92-22-7542JfqxovcbBpnoxpt on above:Tubular adenoma - 05/2024Other connective tissue disease (1 source)Cramp; Translations: [Cramp and spasm]19-30-1137ZsnscennXtybj ear and sense organ disorders (3 sources)Sensorineural hearing loss, bilateral; Translations: [Sensorineural hearing loss, bilateral]62-11-4599KjpnpyuRpzqu endocrine disorders (3 sources)Testicular hypofunction; Translations: [Testicular hypofunction] Onset: 09-86-0021NumzasbXbqpx endocrine disorders (6 sources)Male qukpmuufalti00-79-9422CeyroefClbvn male genital disorders (9 sources)Male erectile dysfunction, unspecified; Translations: [Erectile dysfunction]Onset: 72-78-5399MjgibwhIvaxd nutritional; endocrine; and metabolic disorders (12 sources)Obesity; Translations: [Obesity, unspecified]Onset: 07-10-2024 42-05-1438WxvsjgoFyrfv nutritional; endocrine; and metabolic disorders (3 sources)Obesity, unspecified; Translations: [Obesity, unspecified]03-20-2024 ChronicOther screening for suspected conditions (not mental disorders or infectious disease) (14 sources)Encounter for screening for malignant neoplasm of prostate; Translations: [Patient encounter status]Onset: 07-96-7332YzdyydvfQtekinm on above:PSA: 0.73 - 03/2020, 0.83 - 03/2021, 1.20 - 04/2022, 1.25 - 04/2023, 1.48 - 04/2024Other skin disorders (4 sources)Lentiginosis; Translations: [Other melanin hyperpigmentation] 23-37-7682ZnsldllhAnjrh skin disorders (4 sources)Seborrheic keratosis; Translations: [Other seborrheic keratosis] 44-26-3331BxedbbgwJcpod skin disorders (2 sources)Skin tag; Translations: [Other hypertrophic disorders of the skin] 90-74-1866MidjinnbIbwfb upper respiratory disease (5 sources)Vasomotor rhinitis; Translations: [Vasomotor rhinitis]ChronicOther upper respiratory disease (1 source)Vasomotor rhinitisChronicOtitis media and related conditions (2 sources)Acute serous otitis media, left ear; Translations: [Unspecified Eustachian tube disorder, left ear]EpisodicResidual codes; unclassified (17 sources)Obstructive sleep apnea syndrome; Translations: [Obstructive sleep apnea (adult) (pediatric)]91-81-3456WcpydppPdjfnbwf codes; unclassified (6 sources)Obstructive sleep apnea (adult) (pediatric); Translations: [Obstructive sleep apnea (adult)(pediatric)]Onset: 29-18-7534IriglfhKdqrmhnh codes; unclassified (5 sources)Family history of malignant neoplasm of gastrointestinal tract; Translations: [Family history of malignant neoplasm of digestive organs]Episodic Residual codes; unclassified (12 sources)Insomnia; Translations: [Insomnia, unspecified]64-39-5094Yzszwlsd Residual codes; unclassified (5 sources)Family history of cancer of colon; Translations: [Family history of malignant neoplasm of digestiveorgans]80-99-7993HreuiqhoAdtqwzl on above:Problem List clean-up per request of Phys. EHR CmteResidual codes; unclassified (3 sources)Insomnia, unspecified; Translations: [Insomnia, unspecified] 57-88-8042NtwwwrklNeaimprs codes; unclassified (1 source)Pelvic organ finding; Translations: [Acquired absence of other genital organ(s)]Onset: 62-55-3601OwchwjsyDdqpobpldec; intervertebral disc disorders; other back problems (20 sources)Lumbar spondylosis; Translations: [Spondylosis without myelopathy or radiculopathy, lumbar region]Chronic Past or Other Problems Problem ClassificationProblemDateDocumented DateEpisodic/ChronicEsophageal disorders (1 source)Esophageal disordersInflammation; infection of eye (except that caused by tuberculosis or sexually transmitteddisease) (16 sources)Blepharitis of upper and lower eyelids of bilateral eyes; Translations: [Unspecified blepharitis right eye, upper and lower eyelids]Onset: [id number] eye disorders (16 sources)Dry eyes; Translations: [Dry eye syndrome of bilateral lacrimal glands]Onset: [id number] Results Test NameValueInterpretationReference RangeFacilityFollow-Upon 11-07-2024 Follow-[id number] Earl Jiménez 1950 M Date Provider Department Center 11/07/2024MITZY EISENBERG [facility]EP [facility] No family history on file Level of Service:80017 AR OFFICE/OUTPATIENT ESTABLISHED MOD MDM 30 [facility] CenterOp[facility] OCT panelon [id number] [facility] Hospitalht Eye Images reviewed and comparison made to baseline, Images reviewed. To assess optic nerve function and for use in future follow-up. Reliability: good and adequate. Left Eye Images reviewed and comparison made to baseline, Images reviewed. To assess optic nerve function and for use in future follow-up. Reliability: good and adequate. Notes Good nerve fiber layer (NFL) both eyes (OU).[facility] Radiology Study observation (narrative)[facility] HealthcareAmbulatory Visit Summaryon [id number] Visit SummaryAmbulatory Visit Summary EARL JIMÉNEZ :1950 Visit Date:08/25/2024 Ambulatory Visit Instructions Your Diagnosis BPH with urinary obstruction Incomplete bladder emptying Gross hematuria Hypogonadism male Erectile dysfunction Your Care Team Attending Physician - RUDY CULVER, JAYASHREE Primary Care Physician - RUBEN SHEA DO This Is Your Medications List tamsulosin (tamsulosin 0.4 mg Cap) Contact prescribing physician if questions or concerns aspirin (aspirin 81 mg oral capsule) atorvastatin (atorvastatin 10 mg Tab) calcium-vitamin D diclofenac-misoprostol (diclofenac-misoprostol 75 mg-200 mcg oral delayed release tablet) fluticasone nasal (fluticasone Nasal 0.05 mg/inh Roth[place]) multivitamin with iron (Iron 100 Plus) oxymetazoline nasal (Afrin Allergy Sinus) pantoprazole (Pantoprazole [address] Tab) Procedures Performed TURP - Transurethral resection of prostate (07/10/2024), Flexible cystoscopy (06/06/2024), Colonoscopy, History of hernia repair, Tonsillectomy. Discharge Vitals Temperature (Oral) 37 ???C Heart Rate (Peripheral) 58 Respiratory Rate 18 Blood Pressure 170/74 Height 183 cm Height 72 in Weight 122 kg Weight 268.964 lb BMI 36.43 What to do next Scheduled Follow-Up Appointments Sunday. 2024 8:00 AM EDT With: JAYASHREE JIN MD Where: [facility] [address], [address] [place] [address]- You Need to Schedule the Following Appointments Follow Up with RUDY CULVER, JAYASHREE, SURI When: Where: Medications What How Much When Instructions Unchanged tamsulosin (tamsulosin 0.4 mg Cap) 1 Capsules By Mouth Every day Unchanged aspirin (aspirin 81 mg oral capsule) 1 Capsules By Mouth Every day Contact prescribing physician if questions or concerns Unchanged atorvastatin (atorvastatin 10 mg Tab) 1 Tablets By Mouth Every other day Contact prescribing physician if questions or concerns Unchanged calcium-vitamin D See instructions Contact prescribing physician if questions or concerns Unchanged diclofenac-misoprostol (diclofenac-misoprostol 75 mg-200 mcg oral delayed release tablet)1 Tablets By Mouth 2 times a day Contact prescribing physician if questions or concerns Unchanged fluticasone nasal (fluticasone Nasal 0.05 mg/ inh [place]) 1 Sprays Nasal Inhalation Every day Contact prescribing physician if questions or concerns Unchanged multivitamin with iron (Iron 100 Plus) 1 Tablets By Mouth Every day Contact prescribing physician if questions or concerns Unchanged oxymetazoline nasal (Afrin Allergy Sinus) 2 Sprays Nasal Inhalation At bedtime Contact prescribing physician if questions or concerns Unchanged pantoprazole (Pantoprazole [address] Tab) 1 Tablets By Mouth Every day Contact prescribingphysician if questions or concerns Allergies bacitracin (Unknown) neomycin (Unknown) polymyxin B ophthalmic (Unknown) Problems Ongoing - Any problem that you are currently receiving treatment for. Acute prostatitis Asthma BPH with urinary obstruction Erectile dysfunction GERD (gastroesophageal reflux disease) Gross hematuria Hypercholesterolemia Hypertension Hypogonadism male Incomplete bladder emptying Insomnia Lumbar spondylosis Obesity Obstructive sleep apnea Patient Survey You may receive a survey via text or e-mail asking about your office visit. Please share your experience with us by completing your survey. We appreciate your feedback and thank you for choosing us for your care. Education Materials Benign Prostatic Hyperplasia Benign prostatic hyperplasia (BPH) is an enlarged prostate gland that is caused by the normal agingprocess. The prostate may get bigger as a man gets older. The condition is not caused by cancer. The prostate is a walnut-sized gland that is involved in the production of semen. It is located in front of the rectum and below the bladder. The bladder stores urine. The urethra carries stored urine ou t of the body. An enlarged prostate can press on the urethra. This can make it harder to pass urine. The buildup of urine in the bladder can cause infection. Back pressure and infection may progress to bladder damage and kidney (renal) failure. What are the causes? This condition is part of the normal aging process. However, not all men develop problems from thiscondition. If the prostate enlarges away from the urethra, urine flow will not be blocked. If it enlarges toward the urethra and compresses it, there will be problems passing urine. What increases the risk? This condition is more likely to develop in men older than 50 years. What are the signs or symptoms? Symptoms of this condition include: ??? Getting up often during the night to urinate. ??? Needing to urinate frequently during the day. ??? Difficulty starting urine flow. ??? Decreas (more content not included)...[facility]/Clinic Noteon [id number] Office/Clinic NoteUrology Office/Clinic Note Chief Complaint 6 week PO t HPI Staff 73 yr old male here for 6 wk PO TURP- 07/10/24 Dx: BPH with urinary obstruction, Incomplete bladder emptying, Gross Hematuria, Hypogonadism male, ED, PSA: 01/18/18 - 0.61 03/22/20 - 0.73 03/24/21 - 0.83 03/27/22 - 1.20 04/21/24 - 1.48 Testosterone: 04/30/24 - 255 ([phone]) pt states he feels he is doing better, urge q2-3 hrs, no other issues 1x nightly IPSS - 9 History of Present Illness Tests reviewed: reviewed UA. I have reviewed the previous health record information and history for this patient from Dr. Whitten I have reviewed and verified the staff HPI to be accurate for this encounter. There have been no associated fever, chills, flank pain, or blood in the urine. Denies any urinary infections since last encounter. Review of Systems PHQ Score Initial Depression Screen Score: 0 SCORE ROS - Provider Constitutional: denies weight loss, denies hot flashes. Eyes: denies eye problems. Gastrointestinal: denies nausea, denies vomiting. Cardiovascular: denies chest pain or angina. Integumentary: no dryness Musculoskeletal: denies musculoskeletal symptoms. ENMT: denies otolaryngeal symptoms. Respiratory: no shortness of breath. Heme/Lymph: denies easy bleeding tendency, denies easy bruising tendency. Psychiatric: no confusion, no anxiety. Genitourinary: See HPI. Physical Exam Vitals & Measurements T: 37 ???C(Oral) HR: 58(Peripheral) RR: 18 BP: 170/74 HT: 72 in HT: 183 cm WT: 122 kg WT: 268.964 lb BMI: 36.43 General Appearance: alert, no distress, well nourished, well developed male. Assessment/Plan Pt accompanied by . Portions of this record may have been created with voice recognition artificial intelligence software, specifically [employer], [employer]eck and or [employer]chev[employer]. Substitutions may have occurred due to the inherent limitations of voice recognition and artificial intelligence software. 1. BPH with urinary obstruction (N40.1: Benign prostatic hyperplasia with lower urinary tract symptoms) PSA: 01/18/18 - 0.61 03/22/20 - 0.73 03/24/21 - 0.83 03/27/22 - 1.20 04/21/24 - 1.48 Transrectal [place] 05/20/24 [facility] [place] 42mL and cystic changes noted likely relating underlying BPH. S/p cysto 06/06/24 - bilobar hyperplasia, no significant median lobe. Severe trabeculation. S/p cysto with 16g TURP 07/10/24. Tee removed 07/11/24. Path ~benign prostatic tissue with patchychronic active inflammation and squamous metaplasia. Cystitis cystica, focal. Results reviewed withpt. UA today shows moderate blood and trace leuks. IPSS 9 (11) Stopped Flomax a week ago. Has been noticing improvement with nocturia and urgency. Reassured pt that symptoms will likely improve over timeas he heals. -Cont symptomatic monitoring -F/up in 3 mos 2. Incomplete bladder emptying (R33.9: Retention of urine, unspecified) Prior PVR 358 mL. See #1. 3. Gross hematuria (R31.0: Gross hematuria) Witnessed gross hematuria >1 mos ago. No recurrence. Prescribed Levaquin 500mg qd x 4 weeks 03/2024 for possible prostatitis. Denies hx of cigarette smoking. Used to smoke cigars. 4. Hypogonadism male (E29.1: Testicular hypofunction) Testosterone 04/30/24 - 255 ([phone]) Hx of TRT, was given testosterone injections. C/o fatigue. Libido is not intact. No recent testosterone level. 5. Erectile dysfunction (N52.9: Male erectile dysfunction, unspecified) MEGHAN 2 (5) Unable to achieve a firm enough erection for penetration. Pt states he has taken oral ED meds in the past. Previously discussed IPP. Pt was to research however pt states he has not. IPP rep in office today.Pt declines further discussion with rep. Pt states he wishes to dwell on this further. Patient is status post transurethral resection of prostate approximately 6 weeks ago. He is doing well. He states that he does not have urgency, frequency anymore. He states that he is able to sleep through the night now and denies any nocturia. IPSS score down to 9. I discussed with the patient that he can stop his Flomax. We will continue to monitor. He can follow-up with me in 3 months. Patient had expressed interest in penile prosthesis and we discussed the risk, benefits, alternatives of the penile prosthesis. Patient would like to go home and discuss further with his . He will follow-up for further appointments. Follow-up With When Contact Information RUDY CULVER, JAYASHREE, ANDRESL Additional Instructions: 3 mos Patient Education Benign Prostatic Hyperplasia I, Manda Diaz, personally scribed for Dr. Whitten on 08/25/2024 08:31:46. . Documentation recorded by the scribe, Manda Diaz, accurately reflects the services(s) I performed and decisions made by me. Authenticated by Dr. Willie Rai on 08/25/2024 08:36:02. Problem List/Past Medical History Ongoing (more content not included)...[facility] HospitalComment on above: Result Comment: Electronically Signed By: RUDY CULVER, JAYASHREE\.br\Date and Time Signed: 08/25/24 09:19 EST\.br\Electronically Co-Signed By: Manda Diaz\.br\Date and Time Co-Signed: 08/25/24 08:32 EST\.br\Electronically Co-Signed By: Manda Diaz\.br\Date and Time Co-Signed:08/25/24 08:34 ESTSurgical Pathology Reporton [id number] Pathology Report[address] [address]- Surgical Pathology Report Collected Date/Time: 07/10/2024 10:15 EST Pathologist: Mikey CULVER PhD, Jordan Esposito Received Date/Time: 07/10/2024 11:40 EST RUDY CULVER, RUDY CULVER, JAYASHREE BLANC 07 Surgical Pathology Report - 07/16/2024 13:49 EST - Auth (Verified) Final Diagnosis PROSTATE TISSUE, TRANSURETHRAL RESECTION: - BENIGN PROSTATIC TISSUE WITH PATCHY CHRONIC ACTIVE INFLAMMATION AND SQUAMOUS METAPLASIA. - CYSTITIS CYSTICA, FOCAL. (Electronic Signature) Jordan Jensen MD PhD 07/16/2024 13:49 Clinical Information BPH w/obstruction Pre-Op Diagnosis: BPH w/obstruction Procedure: TURP Post-Op Diagnosis: BPH w/ LUTS Specimen(s) Received Prostate tissue Gross Description Received in formalin labeled with patient name, number, and prostate tissue. The specimen consists of multiple segments of pink-bell rubbery tissue which in aggregate measure 5.5 x 5 x 2 cm and weighs 16 grams. The specimen is entirely submitted in a total of 15 cassettes. (DC) DC:[facility] Microscopic Description Microscopic examination performed unless gross only specified.NormalSelect Medical Cleveland Clinic Rehabilitation Hospital, Edwin ShawComment on above:Performed By: #### [id number] #### [facility] [address], [place] [address]QTJsa 27-02-4064Hidpx gap [Moles/Vol]11 mmol/LNormal6-16[facility], Edwin ShawComment on above:Performed By: #### [id number] #### [facility] [address], [place] [address]Vslwmhc [Mass/Vol]9.1 mg/dLNormal8.9-11.1FSelect Medical Specialty Hospital - Cincinnati NorthComment on above:Performed By: #### [id number] #### [facility] [address], [place] [address]Zzrvkccc [Moles/Vol]104 mmol/XZyuuvz681-551BcnmijSelect Medical Cleveland Clinic Rehabilitation Hospital, Edwin ShawComment on above:Performed By: #### [id number] #### [facility] [address], [place] [address]LN6 [Moles/Vol]25 mmol/MOoubxs55-71GaalmoSelect Medical Cleveland Clinic [facility] Hospital, Edwin Shaw Comment on above:Performed By: #### [id number] #### [facility] [address], [place] [address]Sdboakwgqh [Mass/Vol]0.8 mg/dLNormal0.5-1.3FSelect Medical Specialty Hospital - Cincinnati NorthComment on above:Performed By: #### [id number] #### [facility] [address], [place] [address]Hvxjfkx [Mass/Vol]100 mg/dIZfgxzi33-656DmsqhuSelect Medical Cleveland Clinic Rehabilitation Hospital, Edwin ShawComment on above:Performed By: #### [id number] #### [facility] [address], [place] [address]Kpkgcapkf [Moles/Vol]4.0 mmol/LNormal3.5-5.3FSelect Medical Specialty Hospital - Cincinnati NorthComment on above:Performed By: #### [id number] #### [facility] [address], [place] [address]Yrbkcp [Moles/Vol]136 mmol/PCbecul904-293HsgnlsSelect Medical Cleveland Clinic Rehabilitation Hospital, Edwin ShawComment on above:Performed By: #### [id number] #### [facility] [address] [place] [address]Oexs nitrogen [Mass/Vol]15 mg/dLNormal5-21[facility], Edwin ShawComment on above:Performed By: #### [id number] #### [facility] [address] [place] [address]Mojh nitrogen/Creatinine [Mass ratio]19 No EbxgjBcblrp95-26 [facility], Edwin ShawComment on above:Performed By: #### [id number] #### [facility] [address] [place] [address]OQD w/ Auto Diffon 74-68-4520Qfmjlexxf/100 WBC (Bld)0.2 %Normal 0.0-2.0[facility], Edwin ShawComment on above:Performed By: #### [id number] #### [facility] [address] [place] [address]Bviuoiudv/Leukocytes Auto (Bld) [Pure # fraction]0.0 E9/LNormal 0.0-0.2FSelect Medical Specialty Hospital - Cincinnati NorthComment on above:Performed By: #### [id number] #### [facility] [address] [place] [address]Imbzxgilkmy (Bld) [#/Vol]0.1 E9/LNormal0.0-0.5FSelect Medical Specialty Hospital - Cincinnati NorthComment on above:Performed By: #### [id number] #### [facility] [address] [place] [address]Ylrpsnkgoms/100 WBC (Bld)0.4 %Normal0.0-8.0[facility], Edwin ShawComment on above:Performed By: #### [id number] #### [facility] [address] [place] [address]Kcuepaqaxrm distribution width (RBC) [Ratio]12.9 %Normal 10.9-14.2FSelect Medical Specialty Hospital - Cincinnati NorthComment on above:Performed By: #### [id number] #### [facility] [address] [place] [address]Nqkaixmmvr (Bld) [Volume fraction]38.7 %Gzxzuf36.7-49.0[facility], Edwin ShawComment on above:Performed By: #### [id number] #### [facility] [address] [place] [address]Wbjwihobhd (Bld) [Mass/Vol]13.8 g/eMIgidft14.5-17.5FSelect Medical Specialty Hospital - Cincinnati NorthComment on above:Performed By: #### [id number] #### [facility] [address] [place] [address]Ipkhtdtsnmn (Bld) [#/Vol]1.6 E9/LNormal1.0-4.0[facility], Edwin ShawComment on above:Performed By: #### [id number] #### [facility] [address] [place] [address]Tyzohpcmysu/100 WBC (Bld)10.3 %Low14.0-50.0[facility], Edwin ShawComment on above:Performed By: #### [id number] #### [facility] [address] [place] [address]YYW (RBC) [Entitic mass]32.6 fsVnstrc14.0-34.0[facility], Edwin ShawComment on above:Performed By: #### [id number] #### [facility] [address] [place] [address]CRDU (RBC) [Mass/Vol]35.6 g/rRPhsqug71.4-36.0[facility], [facility] ShawComment on above:Performed By: #### [id number] #### [facility] [address] [place] [address]YHX (RBC) [Entitic vol]91.7 tIFkzgsu25.0-100.0[facility], Edwin ShawComment on above:Performed By: #### [id number] #### [facility] [address], [place] [address]Ptysouist (Bld) [#/Vol]1.3 E9/LHigh0.2-1.0[facility], Edwin ShawComment on above:Performed By: #### [id number] #### [facility] [address] [place] [address]Wupmfsqbctc (Bld) [#/Vol]12.5 E9/LHigh2.0-7.5FSelect Medical Specialty Hospital - Cincinnati NorthComment on above:Performed By: #### [id number] #### [facility] [address] [place] [address]Jtcwmghshvc/100 WBC (Bld)80.9 %High36.0-75.0[facility], Edwin ShawComment on above:Performed By: #### [id number] #### [facility] [address] [place] [address]Xqdbwknk mean volume (Bld) [Entitic vol]9.1 fLNormal6.4-10.8 [facility], [facility] ShawComment on above:Performed By: #### [id number] #### [facility] [address] [place] [address]Gymrfookd (Bld) [#/Vol]203.0 E9/RGizyzj890.0-500.0[facility], Edwin ShawComment on above:Performed By: #### [id number] #### [facility] [address] [place] [address]MQQ (Bld) [#/Vol]4.2 E12/LLow4.3-5.9[facility] Comment on above:Performed By: #### [id number] #### [facility] [address] [place] [address]PNI corrected for nucl RBC Auto (Bld) [#/Vol]15.4 E9/LHigh 4.0-11.0[facility], Edwin ShawComment on above:Result Comment: Peripheral smear review performed.Performed By: #### [id number] #### [facility] [address] [place], [place] [address]DFAVLNWWOKaqljhy By: SYSTEM SYSTEM on 25-34-2023Bypkn gap [Moles/Vol]11 mmol/LNormal6 - 16 mEq/LRemisol ChemCalcium [Mass/Vol]9.1 mg/dL Normal8.9 - 11.1 mg/dLRemisol ChemChloride [Moles/Vol]104 mmol/OSbutgc158 - 111 mmol/LRemisol ChemCO2 [Moles/Vol]25 mmol/KUgqzvj19 - 31 mmol/LRemisol Chem Creatinine [Mass/Vol]0.8 mg/dLNormal0.5 - 1.3 mg/dLRemisol XulrlDJL28 mL/min/1.73 h5Nxrbih>=59mL/min/1.73 a9Etfhbkk ChemGlucose [Mass/Vol]100 mg/dL Ekcoev71 - 199 mg/dLRemisol ChemPotassium [Moles/Vol]4.0 mmol/LNormal3.5 - 5.3 mmol/LRemisol ChemSodium [Moles/Vol]136 mmol/GNsryre335 - 145 mmol/LRemisol Chem Urea nitrogen [Mass/Vol]15 mg/dLNormal5 - 21 mg/dLRemisol ChemUrea nitrogen/Creatinine [Mass ratio]19 mg/bmVlelcb58 - 20Remisol ChemDischarge Note-Nursingon [id number] Note-NursingDischarge Note-Nursing EARL JIMÉNEZ :1950 Visit Date:07/10/2024 Inpatient Discharge Instructions Your Care Team Admitting Physician - JAYASHREE JIN MD Referring Physician - JAYASHREE JIN MD Reason for Your Visit BPH WITH OBSTRUCTION, INCOMPLETE BLADDER EMPTYING, GROSS HEMATURIA Your Diagnosis Benign prostatic hyperplasia (BPH) with post-void dribbling S/P TURP Hypercholesterolemia GERD (gastroesophageal reflux disease) Obesity On deep vein thrombosis (DVT) prophylaxis This Is Your Medications List aspirin (aspirin 81 mg oral capsule) atorvastatin (atorvastatin 10 mg Tab) calcium-vitamin D diclofenac-misoprostol (diclofenac-misoprostol 75 mg-200 mcg oral delayed release tablet) fluticasone nasal (fluticasone Nasal 0.05 mg/inh [place]) multivitamin with iron (Iron 100 Plus) oxymetazoline nasal (Afrin Allergy Sinus) pantoprazole (Pantoprazole [address] Tab) tamsulosin (tamsulosin 0.4 mg Cap) [Image Removed: STOP]Stop taking these medications multivitamin Procedure History TURP - Transurethral resection of prostate (07/10/2024), Flexible cystoscopy (06/06/2024), Colonoscopy, History of hernia repair, Tonsillectomy. Discharge Vitals Temperature (Axillary) 36.7 ???C Heart Rate (Monitored) 73 Respiratory Rate 18 Blood Pressure 167/74 What to do next Instructions From Your Doctor Event Name Event Result Discharge Activity Ambulate as tolerated, Expect mild pain, Expect minimal amount of drainage and/or bleeding, Activity as tolerated Discharge Restrictions No driving for 24 hrs Discharge Diet(s) Renal Call Your Doctor For Persistent or heavy bleeding, Temperature above 101.5 degrees, Persistent vomiting Pending Diagnostic Test Results None Discharge Instructions Hydrate w/ at least 2L/day, pain control w/ tylenol. Do not lift greater than 5- 10 lbs for 4 wks, blood in urine intermittently expected, double timed voiding q4hrs Previously Scheduled Follow-Up Appointments Sunday 8:00 AM EST With: JAYASHREE JIN MD Where: [facility] [address], [address] [place] [address]- New Follow Up Appointments after Discharge Follow Up with JAYASHREE JIN When: 08/25/2024 08:00 AM EST Follow Up with RUBEN SHEA When: 07/21/2024 01:30 PM EST Where: [address] [place] [address]- Business (1) Medications What How Much When Instructions Next Dose Unchanged aspirin (aspirin 81 mg oral capsule) 1 Capsules By Mouth Every day Resume 07/12/2024 Unchanged atorvastatin (atorvastatin 10 mg Tab) 1 Tablets By Mouth Every other day 07/13/2024 Unchanged calcium-vitamin D See instructions As directed Unchanged diclofenac-misoprostol (diclofenac-misoprostol 75 mg-200 mcg oral delayed release tablet)1 Tablets By Mouth 2 times a day Resume tonight at 9:00 PM Unchanged fluticasone nasal (fluticasone Nasal 0.05 mg/ inh [place]) 1 Sprays Nasal Inhalation Every day Resume 07/12/2024 Unchanged multivitamin with iron (Iron 100 Plus) 1 Tablets By Mouth Every day Resume 07/12/2024 Unchanged oxymetazoline nasal (Afrin Allergy Sinus) 2 Sprays Nasal Inhalation At bedtime Resume tonight at bedtime Unchanged pantoprazole (Pantoprazole [address] Tab) 1 Tablets By Mouth Every day 07/12/2024 Unchanged tamsulosin (tamsulosin 0.4 mg Cap) 1 Capsules By Mouth Every day 07/12/2024 What When Comments Stop Taking multivitamin Test Results CBC BMP WBC: 15.4 E9/L High (07/11/24 06:04:00) Glucose Lvl: 100 mg/dL (07/11/24 06:04:00) RBC: 4.2 E12/L Low (07/11/24 06:04:00) BUN: 15 mg/dL (07/11/24 06:04:00) HGB: 13.8 gm/dL (07/11/24 06:04:00) Creatinine: 0.8 mg/dL (07/11/24 06:04:00) Hct: 38.7 % (07/11/24 06:04:00) BUN/Creat Ratio: 19 (07/11/24 06:04:00) MCV: 91.7 fL (07/11/24 06:04:00) Sodium Lvl: 136 mmol/L (07/11/24 06:04:00) MCH: 32.6 pg (07/11/24 06:04:00) Potassium Lvl: 4 mmol/L (07/11/24 06:04:00) MCHC: 35.6 gm/dL (07/11/24 06:04:00) Chloride: 104 mmol/L (07/11/24 06:04:00) RDW: 12.9 % (07/11/24 06:04:00) CO2: 25 mmol/L (07/11/24 06:04:00) Platelet: 203 E9/L (07/11/24 06:04:00) AGAP: 11 mEq/L (07/11/24 06:04:00) MPV: 9.1 fL (07/11/24 06:04:00) Calcium Lvl: 9.1 mg/dL (07/11/24 06:04:00) Allergies bacitracin (Unknown) neomycin (Unknown) polymyxin B ophthalmic (Unknown) Problems Ongoing - Any problem that you are currently receiving treatment for. Acute prostatitis Asthma BPH with urinary obstruction Erectile dysfunction GERD (gastroesophageal reflux disease) Gross hematuria Hypercholesterolemia Hypertension Hypogonadism male Incomplete bladder emptying Insomnia Lumbar spondylosis Obesity Obstructive sleep apnea Education Materials Transurethral Resection of the Prostate, Care After The following information offers guidance on how to care (more content not included)...[facility] HospitalHEMATOLOGYOrdered By: SYSTEM SYSTEM on [id number]/100 WBC (Bld)0.2 %Normal0.0 - 2.0 %Remisol Heme Basophils/Leukocytes Auto (Bld) [Pure # fraction]0.0 E9/LNormal0.0 - 0.2 E9/L Remisol HemeEosinophils (Bld) [#/Vol]0.1 E9/LNormal0.0 - 0.5 E9/LRemisol Heme Eosinophils/100 WBC (Bld)0.4 %Normal0.0 - 8.0 %Remisol HemeErythrocyte distribution width (RBC) [Ratio]12.9 %Cswdbu17.9 - 14.2 %Remisol HemeHematocrit (Bld) [Volume fraction]38.7 %Drtjgu51.7 - 49.0 %Remisol HemeHemoglobin (Bld) [Mass/Vol]13.8 g/aAUzjadc74.5 - 17.5 gm/dLRemisol HemeLymphocytes (Bld) [#/Vol] 1.6 E9/LNormal1.0 - 4.0 E9/LRemisol HemeLymphocytes/100 WBC (Bld)10.3 %Low14.0 - 50.0 %Remisol HemeMCH (RBC) [Entitic mass]32.6 rfNdpwso19.0 - 34.0 pgRemisol HemeMCHC (RBC) [Mass/Vol]35.6 g/cJVulyun22.4 - 36.0 gm/dLRemisol HemeMCV (RBC) [Entitic vol]91.7 kQRyleqe59.0 - 100.0 fLRemisol HemeMonocytes (Bld) [#/Vol]1.3 E9/LHigh0.2 - 1.0 E9/LRemisol HemeMonocytes/100 WBC (Bld)8.2 %Normal4.0 - 14.0 % Remisol HemeNeutrophils (Bld) [#/Vol]12.5 E9/LHigh2.0 - 7.5 E9/LRemisol Heme Neutrophils/100 WBC (Bld)80.9 %High36.0 - 75.0 %Remisol HemePlatelet mean volume (Bld) [Entitic vol]9.1 fLNormal6.4 - 10.8 fLRemisol HemePlatelets (Bld) [#/Vol] 203.0 E9/KRbussz484.0 - 500.0 E9/LRemisol HemeRBC (Bld) [#/Vol]4.2 E12/LLow4.3 - 5.9 E12/LRemisol HemeWBC corrected for nucl RBC Auto (Bld) [#/Vol]15.4 E9/LHigh 4.0 - 11.0 E9/LRemisol HemeComment on above:Result Comment: Peripheral smear review performed.Inpatient Clinical Summaryon [id number] Clinical SummaryInpatient Clinical Summary [place] [id number] Clinical Summary Person Information: Name: EARL JIMÉNEZ Age: 73 Years : 1950 Sex: Male PCP: RUBEN SHEA DO Marital Status: Race: White Ethnicity: Non- or Language: [place] Visit Id: Visit Reason: BPH WITH OBSTRUCTION, INCOMPLETE BLADDER EMPTYING, GROSS HEMATURIA Speciality: Acuity: Enc Type: Outpatient in a Bed Med Service: Surgery Arrival: 07/10/2024 05:27:06 Discharge: Dispo Type: Address: [address] [place] [address] [phone] Provider Notes: Patient: EARL JIMÉNEZ Age: 73 years Sex: Male : 1950 Associated Diagnoses: None Author: JAYASHREE JIN MD Physical Examination General: Alert and oriented x 3, NAD Cardiovascular: Regular rate and rhythm Lungs: Nonlabored breathing on room air Abdomen: Soft, nontender, nondistended with no guarding rigidity noted Extremities: No peripheral edema noted : No suprapubic or flank tenderness noted on palpation Skin: Warm and dry Hospital Course Patient is a 73-year-old male with BPH with LUTS who presented for a transurethral resection of theprostate on 07/10/2024. He did well. In the postoperative period, he tolerated diet advancement with no issues and on postoperative day 1 his Tee catheter was removed without incident. He voided multiple times with low PVRs. Patient was subsequently deemed appropriate for home to discharge. He was counseled on hydrating vigorously, not lifting greater than 10 pounds for the next 4 to 6 weeks, pain control with Tylenol, follow-up in 6 weeks. Resume blood thinners and 7 days. Discharge Plan Discharge Time Discharge time > 30 min. Discharge Summary Plan Discharge Status: improved. Discharge instructions given: to patient, to family member spouse. Discharge disposition: discharge to home self care. Prescriptions: continue same medications, reviewed with spouse. Diagnosis: 2:S/P TURP; 3:Hypercholesterolemia; 4:GERD (gastroesophageal reflux disease); 5:Obesity; 6:On deep vein thrombosis (DVT) prophylaxis Problems Active Gross hematuria Erectile dysfunction Hypogonadism male Incomplete bladder emptying Asthma Hypercholesterolemia GERD (gastroesophageal reflux disease) Obstructive sleep apnea Lumbar spondylosis Hypertension Insomnia Obesity Acute prostatitis BPH with urinary obstruction Smoking Status: Functional Status: Sensory Deficits: History of Falls: Mobility Assistance Prior to Admission: ADLs: Current Level of Assistance for Self-Care/Mobility: Cognitive Status: Allergies bacitracin (Unknown) neomycin (Unknown) polymyxin B ophthalmic (Unknown) Measurements: Height: Weight: Blood Pressure: 167 mmHg / 74 mmHg BMI: Procedures TURP - Transurethral resection of prostate (07/10/2024) Immunizations No Immunizations Documented This Visit Final Med List: aspirin (aspirin 81 mg oral capsule) 1 Capsules By Mouth every day. atorvastatin (atorvastatin 10 mg Tab) 1 Tablets By Mouth every other day. calcium-vitamin D diclofenac-misoprostol (diclofenac-misoprostol 75 mg-200 mcg oral delayed release tablet) 1 TabletsBy Mouth 2 times a day. fluticasone nasal (fluticasone Nasal 0.05 mg/inh [place]) 1 Sprays Nasal Inhalation every day. multivitamin with iron (Iron 100 Plus) 1 Tablets By Mouth every day. oxymetazoline nasal (Afrin Allergy Sinus) 2 Sprays Nasal Inhalation at bedtime. pantoprazole (Pantoprazole [address] Tab) 1 Tablets By Mouth every day. tamsulosin (tamsulosin 0.4 mg Cap) 1 Capsules By Mouth every day. Care Team Members: Attending Physician: JAYASHREE JIN MD Consulting Physician: Referring Physician: JAYASHREE JIN MD Follow up: With: Address: When: JAYASHREE JIN 08/25/2024 8:00 AM With: Address: When: RUBEN SHEA [address] [place] [address] [facility] (1) 07/21/2024 1:30 PM Patient Education Information: Transurethral Resection of the Prostate, Care After; Transurethral Resection of the ProstateClermont County HospitalInpatient Patient Summaryon [id number] Patient SummaryInpatient Patient Summary [place] [id number] Patient Discharge Instructions PERSON INFORMATION Name: EARL JIMÉNEZ Date of : 1950 Current Date: 07/11/2024 13:35:41 PHYSICIANS Admitting Physician: JAYASHREE JIN MD Primary Care Physician: RUBEN SHEA DO PCP Comment: Discharge Diagnosis: 2:S/P TURP; 3:Hypercholesterolemia; 4:GERD (gastroesophageal reflux disease); 5:Obesity; 6:On deep vein thrombosis (DVT) prophylaxis Condition at Discharge: Improved EARL JIMÉNEZ has been given the following list of follow-up instructions, prescriptions, and patient education materials: PATIENT FOLLOW-UP INFORMATION Diet: Renal Discharge Activity: Ambulate as tolerated, Expect mild pain, Expect minimal amount of drainage and/or bleeding, Activity as tolerated Discharge Restrictions: No driving for 24 hrs Wound Care Instructions: Remove Your Dressing In Days Call Your Doctor For: Persistent or heavy bleeding, Temperature above 101.5 degrees, Persistent vomiting IF UNABLE TO CONTACT YOUR PHYSICIAN AND YOU FEEL IT IS AN EMERGENCY, GO TO THE NEAREST EMERGENCY ROOM OR CALL 911 Home Treatment: Devices/Equipment: CPAP unit Special Services: Additional Instructions: Hydrate w/ at least 2L/day, pain control w/ tylenol. Do not lift greater than 5-10 lbs for 4 wks, blood in urine intermittently expected, double timed voiding q4hrs Primary Care Physician to provide the following pending test results: None Follow up: With: Address: When: JAYASHREE JIN 08/25/2024 8:00 AM With: Address: When: RUBEN SHEA [address] [place] [address] [facility] (1) 07/21/2024 1:30 PM In the event that this physician does not participate in your insurance network, please consult with your insurance company to find a nearby participating provider. Comment: NICK Dawkins PAUL J, have received the attached patient education materials/instructions and have verbalized understanding: Patient Signature Date Clinican/Nurse Signature Date HERE ARE THE MEDICATION CHANGES THAT OCCURRED DURING YOUR HOSPITAL STAY Medications to Continue with No Changes Other Medications aspirin (aspirin 81 mg oral capsule) 1 Capsules By Mouth every day. Last Dose: Next Dose: atorvastatin (atorvastatin 10 mg Tab) 1 Tablets By Mouth every other day. Last Dose: Next Dose: calcium-vitamin D Last Dose: Next Dose: diclofenac-misoprostol (diclofenac-misoprostol 75 mg-200 mcg oral delayed release tablet) 1 TabletsBy Mouth 2 times a day. Last Dose: Next Dose: fluticasone nasal (fluticasone Nasal 0.05 mg/inh [place]) 1 Sprays Nasal Inhalation every day. Last Dose: Next Dose: multivitamin with iron (Iron 100 Plus) 1 Tablets By Mouth every day. Last Dose: Next Dose: oxymetazoline nasal (Afrin Allergy Sinus) 2 Sprays Nasal Inhalation at bedtime. Last Dose: Next Dose: pantoprazole (Pantoprazole [address] Tab) 1 Tablets By Mouth every day. Last Dose: Next Dose: tamsulosin (tamsulosin 0.4 mg Cap) 1 Capsules By Mouth every day., prostate Last Dose: Next Dose: No Longer Take the Following Medications multivitamin Comment: MEDICATION LIST PROVIDED FOR YOU IS A LIST OF YOUR CURRENT MEDICATIONS. PLEASE CARRY THIS WITH YOU AT ALL TIMES. aspirin (aspirin 81 mg oral capsule) 1 Capsules By Mouth every day. atorvastatin (atorvastatin 10 mg Tab) 1 Tablets By Mouth every other day. calcium-vitamin D diclofenac-misoprostol (diclofenac-misoprostol 75 mg-200 mcg oral delayed release tablet) 1 TabletsBy Mouth 2 times a day. fluticasone nasal (fluticasone Nasal 0.05 mg/inh [place]) 1 Sprays Nasal Inhalation every day. multivitamin with iron (Iron 100 Plus) 1 Tablets By Mouth every day. oxymetazoline nasal (Afrin Allergy Sinus) 2 Sprays Nasal Inhalation at bedtime. pantoprazole (Pantoprazole [address] Tab) 1 Tablets By Mouth every day. tamsulosin (tamsulosin 0.4 mg Cap) 1 Capsules By Mouth every day. Pharmacy Information: Comment: PATIENT EDUCATION INFORMATION Instructions: Transurethral Resection of the Prostate, Care After The following information offers guidance on how to care for yourself after your procedure. Your health care provider may also give you more specific instructions. If you have problems or questions, contact your health care provider. What can I expect after the procedure? After (more content not included)...[facility] Interdisciplinary Note - Case Manageron [id number] Note - Case ManagerInterdisciplinary Note - Elevator Pilot This SW met with patient and his this morning. They were aware of plan for discharge home today and agreeable. No discharge needs present.[facility] HospitalComment on above:Result Comment: Electronically Signed By: Patria Sin.john\Date and Time Signed: 07/11/24 17:00 ESTMain OR Intraoperative Recordon [id number] OR Intraoperative RecordMain OR Intraoperative Record IntraOp Document Type FT Summary Primary Physician: JAYASHREE JIN MD Finalized Date/Time: 07/11/24 14:08:22 Pt. Name: EARL JIMÉNEZ/Sex: 1950 Male Med Rec #: [id number] Physician: JAYASHREE JIN MD Financial #: [id number] Pt. Type: O Room/Bed: [facility]/ Admit/Disch: 07/10/24 05:27:06 - Institution: Case Times FT Entry 1 Patient Times In Room 07/10/24 09:52:00 Out Room 07/10/24 11:24:00 Procedure Times Start 07/10/24 10:05:00 Stop 07/10/24 11:17:00 Anesthesia Times Start 07/10/24 09:52:00 Stop 07/10/24 11:24:00 Last Modified By: Katlyn RN, MAURIZIOOR, Cornelia Kingston 07/10/24 11:24:22 General Comments: 07/11/24 Chart opened to review and send charges LRoth CSFA Case Attendance FT Entry 1 Entry 2 Entry 3 Case Attendee Earl Bryant CRNA, MD, Barrera Mitchell Ii Role Performed FOREMAN/PILE DRIVING AND ERECTION Surgeon - Primary Straw Baler - Primary Time In 07/10/24 09:52:00 07/10/24 09:52:00 07/10/24 09:52:00 Time Out 07/10/24 11:24:00 07/10/24 11:24:00 07/10/24 10:02:00 Procedure CYSTOSCOPY TURP(.) CYSTOSCOPY TURP(.) CYSTOSCOPY TURP(.) Comments fish supervise Last Modified By: Barb Culp CST RN, MAURIZIOOR, Cornelia Potts RN, ROBERTO, Cornelia 07/11/24 13:59:10 Vashti 07/10/24 11:24:25 Vashti 07/10/24 11:24:25 Entry 4 Entry 5 Entry 6 Case Attendee Katlyn RN, MAURIZIOOR, Cesario Laguna CST, Sydney A Ann Role Performed Straw Baler - Relief Scrub - Primary Staff - Other Time In 07/10/24 09:57:00 07/10/24 09:52:00 07/10/24 09:52:00 Time Out 07/10/24 11:24:00 07/10/24 11:05:00 07/10/24 10:07:00 Procedure CYSTOSCOPY TURP(.) CYSTOSCOPY TURP(.) CYSTOSCOPY TURP(.) Comments help in room Last Modified By: Katlyn RN, CNOR, Cornelia Potts RN, CNOR, Cornelia ROBERTO Potts RN, Lou Ann 07/10/24 11:24:25 Vashti 07/10/24 11:24:25 Vashti 07/10/24 11:24:25 Entry [address] Role Performed Scrub - Relief Time In 07/10/24 11:04:00 Time Out 07/10/24 11:24:00 Procedure CYSTOSCOPY TURP(.) Comments lunch Last Modified By: ROBERTO Potts RN, Lou Ann 07/10/24 11:24:25 Perioperative Protocols FT Pre-Care Text: Implements protective measures prior to operative or invasive procedure, confirms identity before the operative or invasive procedure, verifies operative procedure, surgical site, and laterality Entry 1 Procedure(s) CYSTOSCOPY TURP(.) Patient Identity Birthday, ID Band Verified (select at Check, Patient least 2): Participation Consents / H and P Anesthesia Consent, Operative Site N/A Verified H&P, Transfusion Consent Marking Verified Surgical Site Yes Laterality Verified n/a Verified Procedure Verified Yes Correct Patient Yes Position Verified Availability Equipment, Medication Prep Dry n/a Verified (If Applicable) PreOp Antibiotic Yes Time Out Earl Bryant CRNA, Given Participants JAYASHREE JIN MD, Missler RN, CNOR, Lou Ann, Dent CST, Beau Time Out Complete 07/10/24 10:03:00 Outcomes Met? Yes Last Modified By: ROBERTO Potts RN, Lou Ann 07/10/24 10:05:49 Post-Care Text: The patient is free from signs and symptoms of injury caused by extraneous objects Allergy Information FT Pre-Care Text: Verifies allergies Entry 1 Allergies Reviewed? Yes Allergies Reviewed Self/Patient With Outcomes Met? Yes Last Modified By: ROBERTO Potts RN, Lou Ann 07/10/24 10:01:01 Post-Care Text: The patient received appropriate medication(s) safely administered during the perioperative period Surgical Procedures FT Entry 1 Procedure Description Procedure CYSTOSCOPY TURP Modifiers . Surgeon Description CYSTO TURP Primary Procedure Yes Primary Surgeon JAYASHREE JIN MD Start 07/10/24 10:05:00 Stop 07/10/24 11:17:00 Anesthesia Type General Surgical Service Anesthesia Wound Class 2 - Clean-Contaminated Last Modified By: ROBERTO Potts RN, Lou Ann 07/10/24 11:24:22 General Case Data FT Pre-Care Text: Classifies surgical wound, implements aseptic technique, initiates traffic control Entry 1 Case Information OR OR 5 FT Case Level Level 3 Wound Class 2 - Clean-Contaminated Specialty Anesthesia ASA Class 3 Preop Diagnosis BPH WITH OBSTRUCTION, Postop Same As Preop Yes INCOMPLETE BLADDER EMPTYING, GROSS HEMATURIA Postop Diagnosis BPH WITH OBSTRUCTION, Outcomes Met? Yes INCOMPLETE BLADDER EMPTYING, GROSS HEMATURIA Last Modified By: ROBERTO Potts RN, Lou Ann 07/10/24 11:27:02 Post-Care Text: The patient is free from signs and symptoms of infection Skin Assessment (Pre Procedure) FT Pre-Care Text: Implements protective measures to prevent skin/ tissue injury due to thermal or mechanical sources Evaluates for signs and symptoms of physical injury to skin and tissue Entry 1 Skin Integrity Intact, [place], Warm, & Skin Abnormality No Dry Outcomes Met? Yes Last Modified By: ROBERTO Potts RN, Lou Ann (more content not included)...[facility] HospitaleGFR on [id number] mL/min/1.73 p9Poacnl>=59[facility], [facility] ShawComment on above:Performed By: #### [id number] #### [facility] [address], [place] [address]Svlfyifekbwidfwgt Note - Case Manageron 07-10-2024 Interdisciplinary Note - Case ManagerInterdisciplinary Note - Elevator Pilot CRM spoke with patient and spouse in room. Patient had a TURP today with urology. Anticipated to [facility] tomorrow per patient . Patient has a Tee and CBI running. Patient and spouse verified PCP, insurance and DME, he uses a Cpap at home. Patient lives with his spouse and denies any needs at ca. Whiteboard updated.[facility] HospitalComment on above:Result Comment: Electronically Signed By: Vern ALEGRIA, Bianka\.br\Date and Time Signed: 07/10/24 15:12 ESTMain OR Intraoperative Recordon [id number] OR Intraoperative Record Main OR Intraoperative Record IntraOp Document Type FT Summary Primary Physician: JAYASHREE JIN MD Finalized Date/Time: 07/10/24 11:27:08 Pt. Name: NICK EARL Anderson D.O.B./Sex: 1950 Male Med Rec #: [id number] Physician: JAYASHREE JIN MD Financial #: [id number] Pt. Type: A Room/Bed: [place] [address] Admit/Disch: 07/10/24 05:27:06 - Institution: Case Times FT Entry 1 Patient Times In Room 07/10/24 09:52:00 Out Room 07/10/24 11:24:00 Procedure Times Start 07/10/24 10:05:00 Stop 07/10/24 11:17:00 Anesthesia Times Start 07/10/24 09:52:00 Stop 07/10/24 11:24:00 Last Modified By: Katlyn RN, MAURIZIOOR, Cornelia Kingston 07/10/24 11:24:22 Case Attendance FT Entry 1 Entry 2 Entry 3 Case Attendee Earl Bryant CRNA, MD, Barrera Mitchell Ii Role Performed Anesthesiologist Surgeon - Primary Straw Baler - Primary Manager Reporting Time In 07/10/24 09:52:00 07/10/24 09:52:00 07/10/24 09:52:00 Time Out 07/10/24 11:24:00 07/10/24 11:24:00 07/10/24 10:02:00 Procedure CYSTOSCOPY TURP(.) CYSTOSCOPY TURP(.) CYSTOSCOPY TURP(.) Comments fish supervise Last Modified By: Katlyn RN, MAURIZIOOR, Cornelia Potts RN, MAURIZIOOR, Cornelia Potts RN, MAURIZIOOR, Cornelia Kingston 07/10/24 11:24:25 Vashti 07/10/24 11:24:25 Vashti 07/10/24 11:24:25 Entry 4 Entry 5 Entry 6 Case Attendee Katlyn RN, CNOR, Cesario Laguna CST, Sydney A Ann Role Performed Straw Baler - Relief Scrub - Primary Staff - Other Time In 07/10/24 09:57:00 07/10/24 09:52:00 07/10/24 09:52:00 Time Out 07/10/24 11:24:00 07/10/24 11:05:00 07/10/24 10:07:00 Procedure CYSTOSCOPY TURP(.) CYSTOSCOPY TURP(.) CYSTOSCOPY TURP(.) Comments help in room Last Modified By: ROBERTO Potts RN, Lou Missler RN, CNOR, Lou Missler RN, CNOR, Lou Ann 07/10/24 11:24:25 Vashti 07/10/24 11:24:25 Vashti 07/10/24 11:24:25 Entry [address] Role Performed Scrub - Relief Time In 07/10/24 11:04:00 Time Out 07/10/24 11:24:00 Procedure CYSTOSCOPY TURP(.) Comments lunch Last Modified By: ROBERTO Potts RN, Lou Ann 07/10/24 11:24:25 Perioperative Protocols FT Pre-Care Text: Implements protective measures prior to operative or invasive procedure, confirms identity before the operative or invasive procedure, verifies operative procedure, surgical site, and laterality Entry 1 Procedure(s) CYSTOSCOPY TURP(.) Patient Identity Birthday, ID Band Verified (select at Check, Patient least 2): Participation Consents / H and P Anesthesia Consent, Operative Site N/A Verified H&P, Transfusion Consent Marking Verified Surgical Site Yes Laterality Verified n/a Verified Procedure Verified Yes Correct Patient Yes Position Verified Availability Equipment, Medication Prep Dry n/a Verified (If Applicable) PreOp Antibiotic Yes Time Out Earl Bryant CRNA, Given Participants JAYASHREE JIN MD, Missler RN, CNOR, Lou Ann, Dent CST, Beau Time Out Complete 07/10/24 10:03:00 Outcomes Met? Yes Last Modified By: ROBERTO Potts RN, Lou Ann 07/10/24 10:05:49 Post-Care Text: The patient is free from signs and symptoms of injury caused by extraneous objects Allergy Information FT Pre-Care Text: Verifies allergies Entry 1 Allergies Reviewed? Yes Allergies Reviewed Self/Patient With Outcomes Met? Yes Last Modified By: ROBERTO Potts RN, Lou Ann 07/10/24 10:01:01 Post-Care Text: The patient received appropriate medication(s) safely administered during the perioperative period Surgical Procedures FT Entry 1 Procedure Description Procedure CYSTOSCOPY TURP Modifiers . Surgeon Description CYSTO TURP Primary Procedure Yes Primary Surgeon JAYASHREE JIN MD Start 07/10/24 10:05:00 Stop 07/10/24 11:17:00 Anesthesia Type General Surgical Service Anesthesia Wound Class 2 - Clean-Contaminated Last Modified By: ROBERTO Potts RN, Lou Ann 07/10/24 11:24:22 General Case Data FT Pre-Care Text: Classifies surgical wound, implements aseptic technique, initiates traffic control Entry 1 Case Information OR OR 5 FT Case Level Level 3 Wound Class 2 - Clean-Contaminated Specialty Anesthesia ASA Class 3 Preop Diagnosis BPH WITH OBSTRUCTION, Postop Same As Preop Yes INCOMPLETE BLADDER EMPTYING, GROSS HEMATURIA Postop Diagnosis BPH WITH OBSTRUCTION, Outcomes Met? Yes INCOMPLETE BLADDER EMPTYING, GROSS HEMATURIA Last Modified By: ROBERTO Potts RN, Lou Ann 07/10/24 11:27:02 Post-Care Text: The patient is free from signs and symptoms of infection Skin Assessment (Pre Procedure) FT Pre-Care Text: Implements protective measures to prevent skin/ tissue injury due to thermal or mechanical sources Evaluates for signs and symptoms of physical injury to skin and tissue Entry 1 Skin Integrity Intact, [place], Warm, & Skin Abnormality No Dry Outcomes Met? Yes Last Modified By: ROBERTO Potts RN, Lou Ann 07/10/24 10:01:36 Post-Care Text: The patient is abbi (more content not included)...[facility]Main OR PACU I Recordon [id number] OR PACU I RecordMain OR PACU I Record PACU Phase I Document Type FT Summary Primary Physician: JAYASHREE JIN MD Finalized Date/Time: 07/10/24 12:49:02 Pt. Name: EARL JIMÉNEZ/Sex: 1950 Male Med Rec #: [id number] Physician: JAYASHREE JIN MD Financial #: [id number] Pt. Type: O Room/Bed: Admit/Disch: 07/10/24 05:27:06 - Institution: Case Times PACU I FT Pre-Care Text: Identifies barriers to communication and implements measures to provide psychological support Develops individualized plan of care, and ensures continuity of care Maintains patient's dignity and privacy, and maintains patient confidentiality Identifies and reports philosophical, cultural, and spiritual beliefs and values Identifies individual values and wishes concerning care Implements aseptic technique, and administers prescribed antibiotic therapy and immunizing agents as ordered Evaluates postoperative tissue perfusion Implements thermoregulation measures, and monitors body temperature Evaluates postoperative respiratory status Evaluates postoperative cardiac status Evaluates postoperative neurological status Assesses pain control, collaborated in initiating patient-controlled analgesia and implements alternative methods of pain control Verifies allergies, administers prescribed medications and solutions, evaluates response to medications Entry 1 In PACU I 07/10/24 11:26:00 Discharge from PACU 07/10/24 12:26:00 I Outcomes Met? Yes Last Modified By: Lorena Yu RN 07/10/24 12:48:46 Post-Care Text: The patient demonstrates knowledge of the expected response to the operative or invasive procedure The patient's care is consistent with the individualized perioperative plan of care The patient's rightto privacy is maintained The patient's value system, lifestyle, ethnicity, and culture are considered, respected, and incorporated into the perioperative plan of care The patient participates in decisions affecting his or her perioperative plan of care The patient is free from signs and symptoms of infection The patient has wound/tissue perfusion consistent with or improved from baseline levels established preoperatively The patient is at or returning to normothermia at the conclusion of the immediate postoperative period The patient's respiratory function is consistent with or improved from baseline levels established preoperativelyThe patient's cardiovascular status is consistent with or improved from baseline levels established preoperatively The patient's cardiovascular status is consistent with or improved from baseline levels established preoperatively The patient demonstrates and/or reports adequate pain control throughout the perioperative period The patient received appropriate medication(s), safely administered during the perioperativeperiod Acuity Level PACU I FT Entry 1 Start Time 07/10/24 11:26:00 Stop Time 07/10/24 12:26:00 Acuity Level Acuity Level I Last Modified By: Lorena Yu RN 07/10/24 12:48:59 Finalized By: Lorena Yu RN Document Signatures Signed By: Lorena Yu RN 07/10/24 12:49No[facility]Main [facility] Preoperative Recordon [id number] OR Preoperative RecordMain OR Preoperative Record PreOp Document Type FT Summary Primary Physician: NKANSAHJAYASHREE WALL MD Finalized Date/Time: 07/10/24 11:26:26 Pt. Name: EARL JIMÉNEZ /Sex: 1950 Male Med Rec #: [id number] Physician: JAYASHREE JIN MD Financial #: [id number] Pt. Type: A Room/Bed: [place] [address] Admit/Disch: 07/10/24 05:27:06 - Institution: Case Times PreOp FT Pre-Care Text: Verifies consent for planned procedure, identifies individual values and wishes concerning care, includes family members in perioperative teaching Entry 1 Patient Times. In Pre Surgery 07/10/24 05:40:00 Out Pre Surgery 07/10/24 09:50:00 Outcomes Met? Yes Last Modified By: ROBERTO Potts RN, Lou Ann 07/10/24 11:26:24 Post-Care Text: The patient participates in decisions affecting his or her perioperative plan of care Finalized By: ROBERTO Potts RN, Lou Ann Document Signatures Signed By: ROBERTO Potts RN, Lou Ann 07/10/24 11:26[facility] Operative Reporton [id number] ReportOperative Report Patient: EARL JIMÉNEZ Age: 73 years Sex: Male : 1950 Associated Diagnoses: None Author: JAYASHREE JIN MD Procedure SURGEON: Jayashree Jin MD PREOPERATIVE DIAGNOSIS: BPH w/ LUTS POSTOPERATIVE DIAGNOSIS: Same PROCEDURE: Cystoscopy, transurethral resection of prostate FINDINGS: Bilobar hyperplasia of the prostate resected to create wide open channel ANESTHESIA: General INTRAVENOUS FLUIDS: None ESTIMATED BLOOD LOSS: 5 cc TUBES AND DRAINS: 22 Tanzanian three-way Tee catheter with 30 cc in the balloon SPECIMENS: Prostate chips COMPLICATIONS: None INDICATIONS FOR PROCEDURE: Patient is a 73-year-old male who presented with BPH with LUTS. He presents for definitive therapy today. H&P was reviewed, informed consent of was obtained, patient understood risk, benefits, alternatives of the procedure and wished to proceed. OPERATIVE DETAIL: Patient was brought to the operative suite and placed on continuous pulse oximetry and cardiac monitoring by anesthesia. IV antibiotics including 2 g of Ancef was administered. He was then placed in a dorsolithotomy position and prepped and draped in normal sterile fashion. Timeout was performed confirming patient, procedure, side, all in the room agreed. We began by inserting Ellsworth dilator and sequentially dilated to a 30 Tanzanian. We then inserted the 28 Tanzanian resectoscope Olympus set intothe urethral meatus and advanced into the bladder. We then then did a peter cystoscopy that revealed diverticuli, cellules present. We then in a systematic fashion began our dissection by identifying the ureteral orifices and systematic fashion resecting down to the level of the bladder neck. We dissected down to the prostatic capsule and hemostasis was achieved with electrocautery. An Ilich evacuator was then placed to take out the specimens. We then went back in with the scope and again thoroughly evaluated and there was no significant bleeding noted. We noted that there was wide open channel, and the sphincter was intact with no damage noted to the ureteral orifices. We then placed a 22 Tanzanian three-way Tee catheter with return of light pink-tinged urine. Continued bladder irrigation was placed. 30 cc was placed in the balloon. This concluded the procedure. Patient was then awakened b y anesthesia and transferred to PACU in stable condition. PLAN: Patient will be admitted overnight. If urine stays clear we will do a voiding trial in the morning.[facility] HospitalComment on above:Result Comment: Electronically Signed By: RUDY CULVER, JAYASHREE\.john\Date and Time Signed: 07/10/24 11:47 ESTBMPon [id number] gap [Moles/Vol]11 mmol/LNormal 6-16[facility] ShawComment on above:Performed By: #### [id number] #### [facility] [address], [place] [address]Hormyiz [Mass/Vol]9.4 mg/dLNormal8.9-11.1[facility] HospitalComment on above:Performed By: #### [id number] #### [facility] [address], [place] [address]Finakddw [Moles/Vol]103 mmol/TUjpwaj025-046TdvzdaSelect Medical [facility] Clinic Rehabilitation Hospital, Edwin ShawComment on above:Performed By: #### [id number] #### [facility] [address], [place] [address]KY4 [Moles/Vol]27 mmol/JShpoyi65-06PcmeyzSelect Medical [facility] Comment on above:Performed By: #### [id number] #### [facility] [address], [place] [address]Lvdcdxdtet [Mass/Vol]1.0 mg/dLNormal0.5-1.3FSelect Medical Specialty Hospital - Cincinnati NorthComment on above:Performed By: #### [id number] #### [facility] [address], [place] [address]Gyoeblm [Mass/Vol]97 mg/wLJepgbv35-899OfjvepSelect Medical [facility] Rehabilitation Hospital, Edwin ShawComment on above:Performed By: #### [id number] #### [facility] [address], [place] [address]Jjbpvycwj [Moles/Vol]4.5 mmol/LNormal3.5-5.3FSelect Medical Specialty Hospital - Cincinnati NorthComment on above:Performed By: #### [id number] #### [facility] [address], [place] [address]Kywphv [Moles/Vol]136 mmol/RDhmtfp156-974FeywnhSelect Medical [facility] Clinic Rehabilitation Hospital, Edwin ShawComment on above:Performed By: #### [id number] #### [facility] [address], [place] [address]Bbus nitrogen [Mass/Vol]23 mg/dLHigh5-21[facility] ShawComment on above:Performed By: #### [id number] #### [facility] [address], [place] [address]Tqfj nitrogen/Creatinine [Mass ratio]23 No EanksHeoy71-94ZncjrmSelect Medical Cleveland Clinic Rehabilitation Hospital, Edwin ShawComment on above:Performed By: #### [id number] #### [facility] [address], [place] [address]XPQ w/ Auto Diffon 36-99-1191Usojeshpm/100 WBC (Bld)0.3 %Normal 0.0-2.0[facility], [facility] ShawComment on above:Performed By: #### [id number] #### [facility] [address] [place] [address]Zgebdoxqb/Leukocytes Auto (Bld) [Pure # fraction]0.0 E9/LNormal 0.0-0.2FSelect Medical Specialty Hospital - Cincinnati NorthComment on above:Performed By: #### [id number] #### [facility] [address] [place] [address]Dmihvyokovu (Bld) [#/Vol]0.4 E9/LNormal0.0-0.5FSelect Medical Specialty Hospital - Cincinnati NorthComment on above:Performed By: #### [id number] #### [facility] [address] [place] [address]Ycjvyxfaqdz/100 WBC (Bld)4.7 %Normal0.0-8.0[facility], [facility] ShawComment on above:Performed By: #### [id number] #### [facility] [address] [place] [address]Gdyhidelhos distribution width (RBC) [Ratio]12.9 %Normal 10.9-14.2FSelect Medical Specialty Hospital - Cincinnati NorthComment on above:Performed By: #### [id number] #### [facility] [address] [place] [address]Smldoebble (Bld) [Volume fraction]39.8 %Qpspij05.7-49.0[facility], [facility] ShawComment on above:Performed By: #### [id number] #### [facility] [address] [place] [address]Sdlpglfzax (Bld) [Mass/Vol]14.1 g/nWHbqjog92.5-17.5FSelect Medical Specialty Hospital - Cincinnati NorthComment on above:Performed By: #### [id number] #### [facility] [address] [place] [address]Cmmdygchlea (Bld) [#/Vol]2.2 E9/LNormal1.0-4.0[facility] ShawComment on above:Performed By: #### [id number] #### [facility] [address] [place] [address]Zioluwvngmn/100 WBC (Bld)27.5 %Rahrso76.0-50.0[facility], [facility] ShawComment on above:Performed By: #### [id number] #### [facility] [address] [place] [address]CFJ (RBC) [Entitic mass]32.5 coZjzgsd10.0-34.0[facility], [facility] ShawComment on above:Performed By: #### [id number] #### [facility] [address] [place] [address]JXNR (RBC) [Mass/Vol]35.4 g/wPXgzdiy09.4-36.0[facility] ShawComment on above:Performed By: #### [id number] #### [facility] [address] [place] [address]CND (RBC) [Entitic vol]91.7 nTZjppev21.0-100.0[facility], [facility] ShawComment on above:Performed By: #### [id number] #### [facility] [address] [place] [address]Djqwpealz (Bld) [#/Vol]0.9 E9/LNormal0.2-1.0[facility] ShawComment on above:Performed By: #### [id number] #### [facility] [address] [place] [address]Utwubpczorl (Bld) [#/Vol]4.4 E9/LNormal2.0-7.5FSelect Medical Specialty Hospital - Cincinnati NorthComment on above:Performed By: #### [id number] #### [facility] [address] [place] [address]Crliplwrvxf/100 WBC (Bld)55.6 %Gkviqt59.0-75.0[facility] ShawComment on above:Performed By: #### [id number] #### [facility] [address], [place] [address]Yndckmko mean volume (Bld) [Entitic vol]9.2 fLNormal6.4-10.8 [facility] ShawComment on above:Performed By: #### [id number] #### [facility] [address] [place] [address]Eknfokkfq (Bld) [#/Vol]182.0 E9/BVnvymk803.0-500.0[facility] ShawComment on above:Performed By: #### [id number] #### [facility] [address] [place] [address]CSE (Bld) [#/Vol]4.3 E12/LNormal4.3-5.9[facility] ShawComment on above:Performed By: #### [id number] #### [facility] [address] [place] [address]AAG corrected for nucl RBC Auto (Bld) [#/Vol]7.9 E9/LNormal 4.0-11.0[facility] ShawComment on above:Performed By: #### [id number] #### [facility] [address] [place] [address]QZFIAUVHOAyotzyy By: SYSTEM SYSTEM on 48-46-4690Powry gap [Moles/Vol]11 mmol/LNormal6 - 16 mEq/LRemisol ChemCalcium [Mass/Vol]9.4 mg/dL Normal8.9 - 11.1 mg/dLRemisol ChemChloride [Moles/Vol]103 mmol/MYdbogx996 - 111 mmol/LRemisol ChemCO2 [Moles/Vol]27 mmol/QQdpbvc15 - 31 mmol/LRemisol Chem Creatinine [Mass/Vol]1.0 mg/dLNormal0.5 - 1.3 mg/dLRemisol XplvwUMN17 mL/min/1.73 g2Rwoqyx>=59mL/min/1.73 l8Lyzgbmk ChemGlucose [Mass/Vol]97 mg/dL Ntflmi03 - 199 mg/dLRemisol ChemPotassium [Moles/Vol]4.5 mmol/LNormal3.5 - 5.3 mmol/LRemisol ChemSodium [Moles/Vol]136 mmol/UEnqysj602 - 145 mmol/LRemisol Chem Urea nitrogen [Mass/Vol]23 mg/dLHigh5 - 21 mg/dLRemisol ChemUrea nitrogen/Creatinine [Mass ratio]23 mg/eiWowl31 - 20Remisol ChemCOAGULATION Ordered By: Jayde Givens on 61-86-4492vHST Coag (PPP) [Time]30.2 hSqdmms25.1 - 36.5 second(s)[facility] Auto CoagComment on above:Interpretive Data: Parameter 15 days - 4 weeks 1 - 5 months 6 - 11 months 1 - 5 years 6 - 10 years 11 - 17 years PTT Mean: 35.4 (27.6-45.6) Mean: 33.5 (24.8-40.7) Mean: 32.4 (25.1-40.7) Mean: 31.6 (24.0-39.2) Mean: 31.6 (26.9-38.7) Mean: 31.0 (24.6-38.4) Pediatric Reference ranges were obtained from a study by Christopher Corona et al. prepared from 1437 samples obtained at 7 different centers using the same coagulation reagent and instrumentation as [facility]. Currently there are no coagulation studies available worldwide for children to 14 days, andno normal ranges. Heparin therapeutic range (represented by Anti-Factor Xa activity of 0.2 - 0.4 U/mL) corresponds to PTT of 56.6 - 109.0 sec.INR Coag (PPP) [Relative time]1.08 {INR}Invalid Interpretation CodeINTEGRIS MIAMI HOSPITAL – [place] Auto CoagComment on above:Interpretive Data: INR results are specifically intended to assess patients stabilized on long-term Anticoagulation therapy suggested INR s Less Intensive Anticoagulation 2.0 3.0 Conventional Range 3.0 4.5PT Coag (PPP) [Time]12.1 sNormal9.4 - 12.5 second(s) [facility] Auto CoagComment on above:Interpretive Data: 15 days - 4 weeks 1 - 5 months 6 -11 months 1 5 years 6 10 years 11 -17 years Mean: 11.2 (9.5 12.6) Mean: 11.0 (9.7 12.8) Mean: 11.0 (9.8 13.0) Mean: 11.3 (9.9 13.4) Mean: 11.7 (10.0 14.6) Mean: 11.8 (10.0 - 14.1) Pediatric Reference ranges were obtained from a study by Christopher Corona et al. prepared from 1437 samples obtained at 7 different centers using the same coagulation reagent and instrumentation as [facility]. Currently there are no coagulation studies available worldwide for children to 14 days, andno normal ranges.HEMATOLOGYOrdered By: SYSTEM SYSTEM on 92-67-5514Pnccxgwma/100 WBC (Bld)0.3 %Normal0.0 - 2.0 %Remisol HemeBasophils/Leukocytes Auto (Bld) [Pure # fraction]0.0 E9/LNormal0.0 - 0.2 E9/LRemisol HemeEosinophils (Bld) [#/Vol]0.4 E9/LNormal0.0 - 0.5 E9/LRemisol HemeEosinophils/100 WBC (Bld)4.7 %Normal0.0 - 8.0 %Remisol HemeErythrocyte distribution width (RBC) [Ratio]12.9 %Xupnjb05.9 - 14.2 %Remisol HemeHematocrit (Bld) [Volume fraction]39.8 %Ayjsxe91.7 - 49.0 % Remisol HemeHemoglobin (Bld) [Mass/Vol]14.1 g/mSYucaok54.5 - 17.5 gm/dLRemisol HemeLymphocytes (Bld) [#/Vol]2.2 E9/LNormal1.0 - 4.0 E9/LRemisol Heme Lymphocytes/100 WBC (Bld)27.5 %Jdqfoi20.0 - 50.0 %Remisol HemeMCH (RBC) [Entitic mass]32.5 ckEvmvsk23.0 - 34.0 pgRemisol HemeMCHC (RBC) [Mass/Vol]35.4 g/dL Kbgnuc10.4 - 36.0 gm/dLRemisol HemeMCV (RBC) [Entitic vol]91.7 yPQfcxhb50.0 - 100.0 fLRemisol HemeMonocytes (Bld) [#/Vol]0.9 E9/LNormal0.2 - 1.0 E9/LRemisol HemeMonocytes/100 WBC (Bld)11.9 %Normal4.0 - 14.0 %Remisol HemeNeutrophils (Bld) [#/Vol]4.4 E9/LNormal2.0 - 7.5 E9/LRemisol HemeNeutrophils/100 WBC (Bld)55.6 % Rhjmhz22.0 - 75.0 %Remisol HemePlatelet mean volume (Bld) [Entitic vol]9.2 fL Normal6.4 - 10.8 fLRemisol HemePlatelets (Bld) [#/Vol]182.0 E9/CSpumex702.0 - 500.0 E9/LRemisol HemeRBC (Bld) [#/Vol]4.3 E12/LNormal4.3 - 5.9 E12/LRemisol HemeWBC corrected for nucl RBC Auto (Bld) [#/Vol]7.9 E9/LNormal4.0 - 11.0 E9/L Remisol HemePT & PTTon 28-45-5811hOJL Coag (PPP) [Time]30.2 second(s)Normal 25.1-36.5[facility] HospitalComment on above:Result Comment: Parameter 15 days - 4 weeks 1 - 5 months 6 - 11 months 1 - 5 years 6 - 10 years 11 - 17 years PTT Mean: 35.4 (27.6-45.6) Mean: 33.5 (24.8-40.7) Mean: 32.4 (25.1-40.7) Mean: 31.6 (24.0-39.2) Mean: 31.6 (26.9-38.7) Mean: 31.0 (24.6-38.4) Pediatric Reference ranges were obtained from a study by Christopher Corona et al. prepared from 1437 samples obtained at 7 different centers using the same coagulation reagent and instrumentation as [facility]. Currently there are no coagulation studies available worldwide for children to 14 days, andno normal ranges. Heparin therapeutic range (represented by Anti-Factor Xa activity of 0.2 - 0.4 U/mL) corresponds to PTT of 56.6 - 109.0 sec.Performed By: #### [id number] #### [facility] [address], [place] [address]LJF Coag (PPP) [Relative time]1.08 {INR}Invalid Interpretation CodeSelect Medical [facility] Clinic Rehabilitation Hospital, Edwin ShawComment on above:Result Comment: INR results are specifically intended to assess patients stabilized on long-term Anticoagulation therapy suggested INR???s ???Less Intensive Anticoagulation??? 2.0 ??? 3.0 Conventional Range 3.0 ??? 4.5Performed By: #### [id number] #### [facility] [address], [place] [address]UH Coag (PPP) [Time]12.1 second(s)Normal9.4-12.5[facility] HospitalComment on above:Result Comment: 15 days - 4 weeks 1 - 5 months 6 -11 months 1 ??? 5 years 6 ??? 10 years 11 -17 years Mean: 11.2 (9.5 ??? 12.6) Mean: 11.0 (9.7 ??? 12.8) Mean: 11.0 (9.8 ??? 13.0) Mean: 11.3 (9.9 ??? 13.4) Mean: 11.7 (10.0 ??? 14.6) Mean: 11.8 (10.0 - 14.1) Pediatric Reference ranges were obtained from a study by Christopher Corona et al. prepared from 1437 samples obtained at 7 different centers using the same coagulation reagent and instrumentation as [facility]. Currently there are no coagulation studies available worldwide for children to 14 days, andno normal ranges.Performed By: #### [id number] #### [facility] [address], [place] [address]BS with Cult Rflxon 12-78-6921Xrklnturr Ql (U)NegativeNormal NegativeSelect Medical Cleveland Clinic Rehabilitation Hospital, Edwin ShawComment on above:Performed By: #### [id number] #### [facility] [address], [place] [address]Cavzpqr (U)ClearNormalClearSelect Medical [facility], [facility] ShawComment on above:Performed By: #### [id number] #### [facility] [address], [place] [address]Tprvw (U)YellowNormalYellowSelect Medical [facility] Rehabilitation Hospital, Edwin ShawComment on above:Result Comment: Microscopic readings are only performed on those samples that meet specific criteria set forth by [facility].Performed By: #### [id number] #### [facility] [address], [place] [address]Wdmcqdp Ql (U)NegativeNormalNegativeSelect Medical [facility] Comment on above:Performed By: #### [id number] #### [facility] [address], [place] [address]Npzlftqbxr Auto test strip (U) [Mass/Vol]NegativeNormalNegative [facility] ShawComment on above:Performed By: #### [id number] #### [facility] [address], [place] [address]Xskuatk Auto test strip Ql (U)NegativeNormalNegativeSelect Medical [facility], Edwin ShawComment on above:Performed By: #### [id number] #### [facility] [address], [place] [address]Qxhkdcbnw esterase Auto test strip Ql (U)NegativeNormalNegative [facility] ShawComment on above:Performed By: #### [id number] #### [facility] [address], [place] [address]Dkvvspa Auto test strip Ql (U)NegativeNormalNegativeSelect Medical [facility], Edwin ShawComment on above:Performed By: #### [id number] #### [facility] [address], [place] [address]zJ (U)6.0 [pH]Invalid Interpretation Code5.0-9.0[facility], [facility] ShawComment on above:Performed By: #### [id number] #### [facility] [address], [place] [address]Kpqlcaz Ql (U)NegativeNormalNegMartin Memorial Hospital Comment on above:Performed By: #### [id number] #### [facility] [address], [place] [address]Vsklyonn gravity (U) [Rel density]1.023Invalid Interpretation Code1.005-1.030[facility] ShawComment on above:Performed By: #### [id number] #### [facility] [address], [place] [address]Amcldtexfdhh (U) [Mass/Vol]NegativeNormalNegativeSelect Medical [facility], Edwin ShawComment on above:Performed By: #### [id number] #### [facility] [address], [place] [address]Hhwe of Urine collection methodClean CatchClermont County HospitalComment on above:Performed By: #### [id number] #### [facility] [address], [place] [address]JLDEDXLAVIQurmhkn By: SYSTEM SYSTEM on 17-68-4389Ufavnhkxm Ql (U)NegativeNormalNegativemg/dLINTEGRIS [facility] [place] UA Auto SSClarity (U)Clear (07/03/24 7:49 AM)NormalClearFMARY HURLEY [facility] [place] UA Auto SSColor (U)Yellow 1 (07/03/24 7:49 AM)NormalYellowINTEGRIS [facility]AMI [facility]OSP[facility] [place] UA Auto SSComment on above:Interpretive Data: Microscopic readings are only performed on those samples that meet specific criteria set forth by [facility].Glucose Ql (U) NegativeNormalNegativemg/dLFT UA Auto SSHemoglobin Auto test strip (U) [Mass/Vol]NegativeNormalNegativemg/dLFT UA Auto SSKetones Auto test strip Ql (U)NegativeNormalNegativemg/dLFT UA Auto SSLeukocyte esterase Auto test strip Ql (U)NegativeNormalNegativeLeu/uLFT UA Auto SSNitrite Auto test strip Ql (U) NegativeNormalNegativemg/dLFT UA Auto SSpH (U)6.0 *NA* (07/03/24 7:49 AM)Invalid Interpretation Code5.0 - 9.0[facility] [place] Auto SSProtein Ql (U)NegativeNormalNegativemg/dLINTEGRIS [facility] [place] Auto SSSpecific gravity (U) [Rel density] 1.023 *NA* (07/03/24 7:49 AM)Invalid Interpretation Code1.005 - 1.030[facility] [place] [place]A Auto SS Urobilinogen (U) [Mass/Vol]NegativeNormalNegativemg/dLINTEGRIS [facility] [place] Auto SSURINALYSIS Ordered By: Sugar Bah on [id number] Spec DescClean Catch (07/03/24 7:49 AM)NormalINTE[facility] [place] U[place] Auto SSXR Chest 2 Viewson [id number] Chest 2 ViewsExam Date/Time: 07/03/2024 08:15 EST Reason for Exam: P.A.T. Report IMPRESSION: NO EVIDENCE OF ACTIVE CHEST DISEASE. CLINICAL HISTORY: P.A.T.. COMMENT: The heart is normal in size. The mediastinum is unremarkable. The lungs appear clear. No infiltration nor pleural effusion is evident. Ordering Provider: Lockett Ahmad FINAL REPORT Dictated: 07/03/2024 9:44 am Jacobo Hurley M.D. Signed (Electronic Signature): 07/03/2024 9:44 am Signed by: Jacobo Hurley M.D. Transcribed by: JORGE ALBERTO Technologist: MARY Technical Comments Radiation Dose: Ka,r in mGy = na DAP = naNormalSelect Medical [facility], Edwin ShaweGFRon [id number] mL/min/1.73 m2 Normal>=[address] [place], [place] [address]Comment on above:Performed By: #### [id number] #### [facility] [address], [place] [address]Nwdjokpe function testson [id number] Mild sloping precipitously to profound sensorineural hearing loss above 500 Hz [facility] HealthcareAmbulatory Visit Summaryon [id number] Visit SummaryAmbulatory Visit Summary EARL JIMÉNEZ :1950 Visit Date:06/06/2024 Ambulatory Visit Instructions Your Diagnosis BPH with urinary obstruction Incomplete bladder emptying Gross hematuria Hypogonadism male Erectile dysfunction Your Care Team Attending Physician - RUDY CULVER, JAYASHREE Primary Care Physician - BALL DO, RUBEN This Is Your Medications List ciprofloxacin (Cipro 500 mg Tab) Contact prescribing physician if questions or concerns atorvastatin (atorvastatin 10 mg Tab) diclofenac-misoprostol (diclofenac-misoprostol 75 mg-200 mcg oral delayed release tablet) fluticasone nasal (fluticasone Nasal 0.05 mg/inh [place]) pantoprazole (Pantoprazole [address] Tab) tamsulosin (tamsulosin 0.4 mg Cap) Procedures Performed Flexible cystoscopy (06/06/2024), CE - Cataract extraction, Colonoscopy, History of hernia repair, Tonsillectomy. Discharge Vitals Heart Rate (Peripheral) 72 Respiratory Rate 16 Blood Pressure 150/100 Height 183 cm Height 72 in Weight 122.5 kg Weight 270.066 lb BMI 36.58 What to do next Scheduled Follow-Up Appointments 2024 7:30 AM EST Where: [facility] 2024 7:30 AM EST Where: [facility] You Need to Schedule the Following Appointments Follow Up with RUDY CULVER, SURI BLANC When: Comments: Scheduled TURP Where: Medications What How Much When Instructions Unchanged ciprofloxacin (Cipro 500 mg Tab) 1 Tablets By Mouth 2 times a day Start the day prior to procedure. Unchanged atorvastatin (atorvastatin 10 mg Tab) 1 Tablets Contact prescribing physician if questions or concerns Unchanged diclofenac-misoprostol (diclofenac-misoprostol 75 mg-200 mcg oral delayed release tablet)1 Tablets Contact prescribing physician if questions or concerns Unchanged fluticasone nasal (fluticasone Nasal 0.05 mg/ inh [place]) 1 Sprays Contact prescribing physician if questions or concerns Unchanged pantoprazole (Pantoprazole [address] Tab) 1 Tablets Contact prescribing physician if questions or concerns Unchanged tamsulosin (tamsulosin 0.4 mg Cap) 1 Capsules Contact prescribing physician if questions or concerns Medications and Immunizations Administered Given lidocaine Top 2% Gel w/Appl 6 mL, 6 mL, Topical. For: BPH with urinary obstruction, Incomplete bladder emptying, Gross hematuria, Hypogonadism male, Erectile dysfunction influenza, unspecified formulation, SARS-CoV-2 (COVID-19) mRNA-1273 vaccine, Allergies bacitracin (Unknown) neomycin (Unknown) polymyxin B ophthalmic (Unknown) Problems Ongoing - Any problem that you are currently receiving treatment for. Acute prostatitis Asthma BPH with urinary obstruction Erectile dysfunction GERD (gastroesophageal reflux disease) Gross hematuria Hypercholesterolemia Hypertension Hypogonadism male Incomplete bladder emptying Insomnia Lumbar spondylosis Obesity Obstructive sleep apnea Patient Survey You may receive a survey via text or e-mail asking about your office visit. Please share your experience with us by completing your survey. We appreciate your feedback and thank you for choosing us for your care. Education Materials Transurethral Resection of the Prostate Transurethral resection of the prostate (TURP) is the removal, or resection, of part of the prostate tissue. This procedure is done to treat an enlarged prostate gland (benign prostatic hyperplasia). The goal of TURP is to remove enough prostate tissue to allow for a normal flow of urine. The procedure will allow you to empty your bladder more completely when you urinate so that you can urinate less often. In a transurethral resection, a thin telescope with a light, a camera, and an electric cutting edge(resectoscope) is passed through the urethra and into the prostate. The opening of the urethra is at the end of the penis. Tell a health care provider about: ??? Any allergies you have. ??? All medicines you are taking, including vitamins, herbs, eye drops, creams, and nngr-yuc-vqpvqaa medicines. ??? Any problems you or family members have had with anesthetic medicines. ??? Any bleeding problems you have. ??? Any surgeries you have had. ??? Any medical conditions you have. ??? Any prostate infections you have had. What are the risks? Generally, this is a safe procedure. However, problems may occur, including: ??? Infection. ??? Bleeding. ??? Allergic reactions to medicines. ??? Blood in the urine (hematuria). ??? Damage to nearby structures or organs. Other problems may occur, but they are rare. They include: ??? Dry ejaculation, or having no semen come out during orgasm. ??? Erectile dysfunction, or being unable to have or keep an erection. ??? Scarring that leads to narrowing of the urethra. This narrowing may block the flow of urine. ? (more content not included)...NormalFisher Johns Hopkins HospitalUrology Office/Clinic Noteon [id number] Office/Clinic NoteUrology Office/Clinic Note Chief Complaint cysto HPI Staff Pt here for cysto to evaluate candidacy for prostate procedures. TRUS 05/20/24 [facility] [place] volume 42 cc. Testosterone ([id number]): 04/30/24 - 255 History of Present Illness Tests reviewed: Cysto I have reviewed the previous health record information and history for this patient from Dr. Jayashree Jin. I have reviewed and verified the staff HPI to be accurate for this encounter. Review of Systems PHQ Score Initial Depression Screen Score: 0 SCORE ROS - Provider Constitutional: denies weight loss, denies hot flashes. Eyes: denies eye problems. Gastrointestinal: denies nausea, denies vomiting. Cardiovascular: denies chest pain or angina. Integumentary: no dryness Musculoskeletal: denies musculoskeletal symptoms. ENMT: denies otolaryngeal symptoms. Respiratory: no shortness of breath. Heme/Lymph: denies easy bleeding tendency, denies easy bruising tendency. Psychiatric: no confusion, no anxiety. Genitourinary: See HPI. Physical Exam Vitals & Measurements HR: 72(Peripheral) RR: 16 BP: 150/100 HT: 72 in HT: 183 cm WT: 122.5 kg WT: 270.066 lb BMI: 36.58 General: nontoxic, NAD Mouth: moist mucosa Lungs: normal respiratory effort Cardio: regular rate, good distal perfusion Abdomen: nondistended, no suprapubic distention or tenderness, no CVA tenderness Neurologic: Grossly normal Skin: No rashes or suspicious lesions Procedure Operative Information Anesthesia Type: Local Procedure: Local Cystoscopy Complications: None Surgical risks, benefits, details of the procedure have been explained to the patient. Full informed consent has been obtained. Intraoperative Information Prepped: Patient is brought back to the endoscopy suite. Patient is placed in supine position. Patient prepped in the usual fashion with Betadine solution. 2% Xylocaine Jelly is placed per Urethra. After waiting several minutes, the Cystoscope is introduced. The Urethra is: Normal The Prostatic Urethra is: Bilobar hyperplasia, no significant median lobe The Bladder: no tumors, no stones, small bladder diverticuli, Trabeculated: Severe (3) The Ureteral orifices: Show efflux of clear urine Removal: Cystoscope is removed. The patient tolerated it well. Postoperative Information Patient is discharged home with antibiotic coverage. Follow up arranged. Assessment/Plan 1. BPH with urinary obstruction (N40.1: Benign prostatic hyperplasia with lower urinary tract symptoms) PSA: 01/18/18 - 0.61 03/22/20 - 0.73 03/24/21 - 0.83 03/27/22 - 1.20 04/21/24 - 1.48 IPSS 11. Taking Flomax 0.4mg qd. C/o weak stream, hesitancy, nocturia 1x but this varies. Transrectal US 05/20/24 [facility] [place] Volume 42mL and cystic changes noted likely relating underlying BPH Pt had IO Cysto w no complications, pt took prophylactic abx as prescribed. Discussed TURP as next steps regarding prostate obstruction. Pt stated he would like to have this done. Follow up w/procedure or sooner if needed. Pt understands and agrees with plan. -Will schedule TURP. The procedural risks, benefits, details, and treatment alternatives have been discussed with the patient. These include bleeding, infection, need for blood transfusion, continuedurinary difficulties, urinary leakage which could be permanent, need for catheter, retrograde ejaculation, scar tissue formation in the urinary channel or area of prostate shaving, erection problems,blood clot formation in the lower extremities which could travel to the lungs, among others. A secondary operation could also be required. Full informed consent has been obtained. Will order General anesthesia. 2. Incomplete bladder emptying (R33.9: Retention of urine, unspecified) PVR at last OV was 358 mL. See #1. 3. Gross hematuria (R31.0: Gross hematuria) Witnessed gross hematuria >1 mos ago. No recurrence. Prescribed Levaquin 500mg qd x 4 weeks 03/2024 for possible prostatitis. Denies hx of cigarette smoking. Used to smoke cigars. 4. Hypogonadism male (E29.1: Testicular hypofunction) Hx of TRT, was given testosterone injections. C/o fatigue. Libido is not intact. No recent testosterone level. Testosterone 04/30/24 - 255 (519-399) 5. Erectile dysfunction (N52.9: Male erectile dysfunction, unspecified) MEGHAN 5 Unable to achieve a firm enough erection for penetration. Pt states he has taken oral ED meds in the past. Discussed penile implant at last OV. Pt to research this. On cystoscopy, patient has severe bladder trabeculations, multiple cellules, along with bladder tics. He has bilobar hyperplasia with no significant median lobe. I discussed with the patient that based on these findings we will proceed with a transurethral resection of the prostate under general anesthesia. He is amenable to this. We will proceed as such. Follow-up With When Contact Information RUDY CULVER, JAYASHREE, URL Additional Instructions: Scheduled TURP (more content not included)...Normal [facility], Edwin ShawComment on above:Result Comment: Electronically Signed By: JAYASHREE JIN MD\.br\Date and Time Signed: 06/06/24 09:29 EST\.br\Electronically Co-Signed By: Orestes Farmer\.br\Date and Time Co- Signed: 06/06/24 08:49 ESTNo Panel InformationOrdered By: April Ojeda on [id number] Pathology TestSee [facility]umbull Memorial HospitalComment on above:See report. Scanned copy available in EMR.Pathology Request for Lab Corpon [id number] Request for Lab CorpNormalThWeiser Memorial Hospital Physician GroupComment on above:Order Comment: PATHOLOGY GI SPECIMEN Result Comment: See report. Scanned copy available in EMR. PERFORMED BY: [place] [address] PATHOLOGIST [employer]USTIC PREPARER DANNA ADAMS M.D.Performed By: #### [facility] #### [place] [address] USAUS prostateon [id number] prostateMER[facility] Main [place] [address] [place] [address] Ultrasound Report Signed Patient: Earl Jiménez MR#: [id number] : 1950 Acct:[id number] Age/Sex: 73 / M ADM Date: 05/20/24 Loc: Room: Type: [facility] Attending Dr: Jayashree Jin MD Ordering Provider: Jayashree Jin MD Date of Service: 05/20/24 US/US prostate: BPH W/ LUTS, N40.1 Copies to: Jayashree Jin MD Prostate ultrasound. Reason for exam: Acute prostatitis. COMPARISON: None. TECHNIQUE: Transrectal imaging of the prostate gland was obtained. FINDINGS: The prostate gland measures 4.9 x 5.1 x 3.2 cm for a prostate volume of 42 mL. No hyperemia seen on color Doppler imaging to suggest prostatitis. Heterogenous echotexture seen involving the central gland with cystic changes noted likely relating underlying BPH. No hypoechoic nodules seen within the peripheral zone to suggest prostate malignancy. US/US prostate Impression: No ultrasound evidence of malignancy is seen involving the peripheral zone. Heterogenous echotexture involving the central gland with cystic changes likely relating underlying BPH. No hyperemia is noted to suggest underlying prostatitis. If further evaluation is needed, prostate MRI is recommended. Impression dictated by: Sherif Jacinto Jr., D.O.05/20/2024 11:40 AM Dictation Location: [place] [address] Tech: Lizzy Montano Transcribed By: ROGER 05/20/24 1140 Dictated By: Sherif Jacinto Jr, DO 05/20/24 1134 Signed By: 05/20/24 1140[facility] Physician GroupNo Panel Informationon [id number] Rmntb387 ng/[id number] Bay Park HospitalComment on above:Adult male reference interval is based on a population ofhealthy nonobese males (BMI <30) between 19 and 39 yearsold. mer Macdonald.al. JCEM 2017,102;9475-2432. PMID:[id number].Performed at: [address] [id number] Director: Francesco Montes PhD, Phone: [phone] Visit Summaryon [id number] Visit Summary Ambulatory Visit Summary EARL JIMÉNEZ :1950 Visit Date:04/29/2024 Ambulatory Visit Instructions Your Diagnosis BPH with urinary obstruction Incomplete bladder emptying Gross hematuria Hypogonadism male Erectile dysfunction Your Care Team Attending Physician - JAYASHREE JIN MD Primary Care Physician - RUBEN SHEA DO Referring Physician - RUBEN SHEA DO This Is Your Medications List ciprofloxacin (Cipro 500 mg Tab) Contact prescribing physician if questions or concerns atorvastatin (atorvastatin 10 mg Tab) diclofenac-misoprostol (diclofenac-misoprostol 75 mg-200 mcg oral delayed release tablet) fluticasone nasal (fluticasone Nasal 0.05 mg/inh [place]) pantoprazole (Pantoprazole [address] Tab) tamsulosin (tamsulosin 0.4 mg Cap) Procedures Performed CE - Cataract extraction, Colonoscopy, History of hernia repair, Tonsillectomy. Discharge Vitals Height 183 cm Height 72 in Weight 122.5 kg Weight 269.5 lb BMI 36.58 What to do next You Need to Schedule the Following Appointments Follow Up with RUDY CULVER, SURI BLANC When: Where: Medications What How Much When Instructions New ciprofloxacin (Cipro 500 mg Tab) 1 Tablets By Mouth 2 times a day Start the day prior to procedure. Pickup at [id number] Unchanged atorvastatin (atorvastatin 10 mg Tab) 1 Tablets Contact prescribing physician if questions or concerns Unchanged diclofenac-misoprostol (diclofenac-misoprostol 75 mg-200 mcg oral delayed release tablet)1 Tablets Contact prescribing physician if questions or concerns Unchanged fluticasone nasal (fluticasone Nasal 0.05 mg/ inh [place]) 1 Sprays Contact prescribing physician if questions or concerns Unchanged pantoprazole (Pantoprazole [address] Tab) 1 Tablets Contact prescribing physician if questions or concerns Unchanged tamsulosin (tamsulosin 0.4 mg Cap) 1 Capsules Contact prescribing physician if questions or concerns Pharmacy Information [id number]: [address] [place], [place] [id number] [phone] Allergies bacitracin (Unknown) neomycin (Unknown) polymyxin B ophthalmic (Unknown) Problems Ongoing - Any problem that you are currently receiving treatment for. Acute prostatitis Asthma BPH with urinary obstruction Erectile dysfunction GERD (gastroesophageal reflux disease) Gross hematuria Hypercholesterolemia Hypertension Hypogonadism male Incomplete bladder emptying Insomnia Lumbar spondylosis Obesity Obstructive sleep apnea Patient Survey You may receive a survey via text or e-mail asking about your office visit. Please share your experience with us by completing your survey. We appreciate your feedback and thank you for choosing us for your care. Education Materials Cystoscopy Cystoscopy is a procedure that is [...] Cystoscopy may be recommended if you have: ??? Urinary tract infections that keep coming back. ??? Blood in the urine (hematuria). ??? An inability to control when you urinate (urinary incontinence) or an overactive bladder. ??? Unusual cells found in a urine sample. ??? A blockage in the urethra, such as a urinary stone. ??? Painful urination. ??? An abnormality in the bladder found during an intravenous pyelogram (IVP) or CT scan. Cystoscopy may also be done to remove a sample of tissue to be examined under a microscope (biopsy). Tell a health care provider about: ??? Any allergies you have. ??? All medicines you are taking, including vitamins, herbs, eye drops, creams, and vwjg-hlc-salfckw medicines. ??? Any problems you or family members have had with anesthetic medicines. ??? Any blood disorders you have. ??? Any surgeries you have had. ??? Any medical conditions you have. ??? Whether you are or may be . What are the risks? Generally, this is a safe procedure. However, problems may occur, including: ??? Infection. ??? Bleeding. ??? Allergic reactions to medicines. ??? Damage to other structures or organs. What happens before the procedure? Medicines Ask your health care provider about: ??? Changing or stopping your regular medicines. This is especially important if you are taking diabetes medicines or blood thinners. ??? Taking medicines such as aspirin and ibuprofen. These medicines can thin your blood. Do not take these medicines unless your health care provider tells you to take (more content not included)...NormalFisher [facility] Hopkins HospitalUrology Office/Clinic Noteon [id number] Office/Clinic NoteUrology Office/Clinic Note HPI Staff 73 year old male referred by Dr. Shea for dysuria, lower abd pain, frequency. Pt. seen Dr. Serrato about 10 years ago Pt. taking Flomax 0.4mg PVR 358mL Dysuria: no Incomplete bladder emptying: no Hematuria: Pt. states he has had gross hematuria in the past, about 35 days ago. Pt. states no blood at this time Frequency: every 3 hours Urgency: no Nocturia: 0-1x's Stream: occasionally slow stream with stop and go Post void dripping: no Wearing pads/ Depends: no Urge incontinence: no Stress incontinence: no Incontinence without Sensory Awareness: no Abdominal pain: no Flank pain: no History of Present Illness Tests reviewed: reviewed UA, PSA, external records. I have reviewed the previous health record information and history for this patient from external provider. I have reviewed and verified the staff HPI to be accurate for this encounter. There have been no associated fever, chills, flank pain, or blood in the urine. Denies any urinary infections since last encounter. Review of Systems PHQ Score Initial Depression Screen Score: 0 SCORE ROS - Provider Constitutional: denies weight loss, denies hot flashes. Eyes: denies eye problems. Gastrointestinal: denies nausea, denies vomiting. Cardiovascular: denies chest pain or angina. Integumentary: no dryness Musculoskeletal: denies musculoskeletal symptoms. ENMT: denies otolaryngeal symptoms. Respiratory: no shortness of breath. Heme/Lymph: denies easy bleeding tendency, denies easy bruising tendency. Psychiatric: no confusion, no anxiety. Genitourinary: See HPI. Physical Exam Vitals & Measurements HT: 72 in HT: 183 cm WT: 122.5 kg WT: 269.5 lb BMI: 36.58 General Appearance: alert, no distress, well nourished, well developed male. Head: normocephalic . Eyes: normal orbit and globe. ENMT: normal examination of external ears. Skin: warm, dry, no bruising. Psychiatric: cooperative, affect appropriate for age, normal judgement, euthymic mood. Assessment/Plan 73 [address] male referred by Dr[address] Ruben Shea for BPH w/ LUTS. Denies hx of diabetes or HTN. Denies CVA or FL. Hx of skin CA. PSH ~umbilical hernia repair wo mesh. Family hx ~three brothers. CMP 04/21/24 - CR 1.04, eGFR >60 Lipids 04/21/24 wnl Portions of this record may have been created with voice recognition artificial intelligence software, specifically [employer], Spacedeck and or Dragon Ambient Experience. Substitutions may have occurred due to the inherent limitations of voice recognition and artificial intelligence software. 1. BPH with urinary obstruction (N40.1: Benign prostatic hyperplasia with lower urinary tract symptoms) PSA: 01/18/18 - 0.61 03/22/20 - 0.73 03/24/21 - 0.83 03/27/22 - 1.20 04/21/24 - 1.48 UA today negative for infection or blood. IPSS 11. Taking Flomax 0.4mg qd. C/o weak stream, hesitancy, nocturia 1x but this varies. No recent imaging to evaluate prostate volume. Given no improvement on Flomax, I recommend cystoscopy to further evaluate GALVEZ and TRUS to measure the prostate. Discussed outlet procedures such as UroLift and REZUM vs TURP or RASP. Discussed possible SE of each procedure. -Will schedule cysto. The risks and benefits for cystoscopy have been discussed. The risks include bleeding, infection, and irritation of the bladder and urinary channel, among others. The patient, after being informed of procedural details and after questions have been answered, wishes to proceed.Full informed consent has been obtained. Will order Local anesthesia. -Will schedule TRUS of the prostate for sizing, ian Ko sent to pharm on file 2. Incomplete bladder emptying (R33.9: Retention of urine, unspecified) PVR 358 mL. See #1. 3. Gross hematuria (R31.0: Gross hematuria) Witnessed gross hematuria >1 mos ago. No recurrence. Prescribed Levaquin 500mg qd x 4 weeks 03/2024 for possible prostatitis. UA today negative. Denies hx of cigarette smoking. Used to smoke cigars. -Scheduling cysto 4. Hypogonadism male (E29.1: Testicular hypofunction) Hx of TRT, was given testosterone injections. C/o fatigue. Libido is not intact. No recent testosterone level. -Will check testosterone level, have drawn early in the morning 5. Erectile dysfunction (N52.9: Male erectile dysfunction, unspecified) MEGHAN 5 Unable to achieve a firm enough erection for penetration. Pt states he has taken oral ED meds in the past. Discussed penile implant. Pt to research this. Patient referred to me for difficulty voiding. On office visit today, patient had PVR of 350 cc. I did discuss with him the risk of incomplete bladder emptying. Patient has previously been on Flomax and states that it is not really improving his symptoms. I discussed with him that based on his failure of medical therapy we will proceed with surgical planning with a cystoscopy, transrectal ultrasound of the prostate to determine prostate size and based on that (more content not included)...[facility]ermont County HospitalComment on above:Result Comment: Electronically Signed By: JAYASHREE JIN MD\.br\Date and Time Signed: 04/29/24 14:32 EDT\.br\Electronically Co- Signed By: Manda Diaz\.br\Date and Time Co-Signed: 04/29/24 14:29 EDT Perimetry studyon [id number] HealthcareRadiology Study observation (narrative)[facility]OMS HealthcareBasophils Auto (Bld) [#/Vol]on 40-18-3708Abyuyjihs (Bld) [#/Vol]Automated basophil count0.0-0.1[facility] Basophils/100 WBC Auto (Bld)on 54-21-3978Fnoggvmuu/100 WBC (Bld)Automated basophil %0.2-2.0[facility] HospitalCholesterol in LDL Calc [Mass/Vol]on 07-87-9374Fkdtswdsiuj in LDL [Mass/Vol]Cholesterol in LDL [Mass/volume] in Serum or Plasma by calculationPromedica Bay Park Hospital Comment on above:<100 mg/dl QNUCUED179-478 mg/dl NEAR OR ABOVE GKTFPQB128-716 mg/dl BORDERLINE NKXI732-262 mg/dl HIGH>190 mg/dl VERY HIGHCholesterol in VLDL Calc [Mass/Vol]on 04-45-2744Gqrsoadxbqx in VLDL [Mass/Vol]Cholesterol in VLDL [Mass/volume] in Serum or Plasma by calculationPromedica Bay Park Hospital Eosinophils/100 WBC Auto (Bld)on 02-52-2268Xdqzvyueifh/100 WBC (Bld)Automated eosinophil %0.9-7.0[facility] HospitalErythrocyte distribution width Auto (RBC) [Ratio]on 88-97-5218Dgnbfvtnszu distribution width (RBC) [Ratio]Erythrocyte distribution width [Ratio] by Automated count11.0-15.0 [facility] HospitalEstimated glomerular filtration rate (GFR) non- Americanon 88-29-2578TQB/1.73 sq M.predicted among non-blacks MDRD (S/P/Bld) [Vol rate/Area]Estimated glomerular filtration rate (GFR) non->=60 mL/min/1.73m 2[facility] HealthcareGlobulin Calc (S) [Mass/Vol]on 89-15-2853Yinjiohn (S) [Mass/Vol]Serum globulin measurement by calculation (mass/volume)[facility] HospitalHematocrit Auto (Bld) [Volume fraction]on 04-61-8192Moctrbkima (Bld) [Volume fraction]Hematocrit [Volume Fraction] of Blood by Automated jichhYtx32.0-54.0[facility] HospitalHemoglobin [Mass/volume] in Bloodon 11-50-0055Vljelxidto (Bld) [Mass/Vol]Hemoglobin [Mass/volume] in Blood14.0-18.0[facility] HospitalLaboratory - Chemistry and Chemistry - challengeon 95-82-9910Oajrfwz [Mass/Vol]3.6 g/dL3.4-5.0[facility] HospitalALP [Catalytic activity/Vol]58 U/M65-703TxpeicqnxPromedica Bay Park HospitalALT [Catalytic activity/Vol]36 U/X36-64CipjsgwlzPromedica Bay Park HospitalAST [Catalytic activity/Vol]23 U/E35-20NutrbxkumPromedica Bay Park HospitalBilirubin [Mass/Vol]0.7 mg/dL0.2-1.0[facility] HospitalCalcium [Mass/Vol]9.2 mg/dL 8.5-10.1[facility] HealthcareChloride [Moles/Vol]103 mmol/L98-107 [facility] HospitalCholesterol [Mass/Vol]157 mg/dL<=200[facility] HospitalCholesterol in HDL [Mass/Vol]37 mg/hTYdy03-31RhoqvjcoiPromedica Bay Park HospitalComment on above:> or =60 mg/dl - LOW CARDIOVASCULAR RISK<40 mg/dl - HIGH CARDIOVASCULAR RISKCO2 [Moles/Vol]28.5 mmol/L21.0-32.0 [facility] HospitalCobalamin (Vitamin B12) [Mass/Vol]574 pg/mL 232-1245[facility] HospitalComment on above:Performed at: - [facility] [id number] Director: Francesco Montes PhD, Phone: [phone] [Mass/Vol]1.04 mg/dL0.70-1.30 [facility] HospitalFerritin [Mass/Vol]314.0 ng/mL26.0-388.0 [facility] HospitalGFR/1.73 sq M.predicted MDRD (S/P/Bld) [Vol rate/Area]mL/min/{1.73_m2}>=60 mL/min/1.73m 2[facility] Glucose [Mass/Vol]98 mg/nR99-747MqknaogrzPromedica Bay Park HospitalPotassium [Moles/Vol]4.9 mmol/L3.5-5.1[facility] HealthcareProtein [Mass/Vol] 7.4 g/dL6.4-8.2FACMC Healthcare System Glenbeighodium [Moles/Vol]141 mmol/L 136-145[facility] HospitalTriglyceride [Mass/Vol]113 mg/dL<=150 [facility] HospitalTSH Qn3.853 m[IU]/LHigh0.358-3.740[facility] HospitalUrea nitrogen [Mass/Vol]14.0 mg/dL7.0-18.0[facility] HospitalUrea nitrogen/Creatinine [Mass ratio]13.5 mg/mgPromedica Bay Park HospitalLaboratory - Hematology and Cell countson 04-21-2024 Immature granulocytes/100 WBC (Bld)0.5 %0.0-0.5[facility] Leukocytes [#/volume] corrected for nucleated erythrocytes in Blood by Automated counon 41-59-7503FML corrected for nucl RBC Auto (Bld) [#/Vol]Leukocytes [#/volume] corrected for nucleated erythrocytes in Blood by Automated coun 4.0-11.0[facility] HospitalLymphocytes Auto (Bld) [#/Vol]on 59-20-7409Kobjtgjuenu (Bld) [#/Vol]Lymphocytes [#/volume] in Blood by Automated count1.2-3.8[facility] HospitalLymphocytes/100 WBC Auto (Bld)on 94-42-7583Scmkwdbxmgv/100 WBC (Bld)Lymphocytes/100 leukocytes in Blood by Automated count20.5-60.0[facility] HospitalH Auto (RBC) [Entitic mass]on 37-71-7191NHA (RBC) [Entitic mass]MCH [Entitic mass] by Automated count 25.9-34.0[facility] HospitalMCHC Auto (RBC) [Mass/Vol]on 02-39-2077DOQB (RBC) [Mass/Vol]MCHC [Mass/volume] by Automated count29.9-35.2 [facility] HospitalMCV Auto (RBC) [Entitic vol]on 34-28-0025LRH (RBC) [Entitic vol]MCV [Entitic volume] by Automated count80.0-94.0[facility] HospitalMonocytes Auto (Bld) [#/Vol]on 38-88-8733Ikjysqzws (Bld) [#/Vol]Automated blood monocyte count0.3-0.8[facility] Monocytes/100 WBC Auto (Bld)on 79-79-7201Cyomaykra/100 WBC (Bld)Automated monocyte %1.7-12.0[facility] HospitalNeutrophils Auto (Bld) [#/Vol]on 77-58-1144Fwxdjhgjrmq (Bld) [#/Vol]Neutrophils [#/volume] in Blood by Automated count1.4-6.5[facility] HealthcareNeutrophils/100 WBC Auto (Bld)on 85-84-9662Nzdrsihmeka/100 WBC (Bld)Automated neutrophil %43.0-75.0 [facility] HospitalNo Panel Informationon 48-87-6177Nvbyccamutr # (Auto)0.4 10 3/uL0.0-0.7[facility] HealthcareImmature Granulocyte # (Auto)0.04 10 3/uLHigh0.00-0.03[facility] HospitalProstate Specific Antigen Screen1.48 ng/mL<=4.00[facility] HospitalPlatelet mean volume Auto (Bld) [Entitic vol]on 26-25-6625Sqbcmbea mean volume (Bld) [Entitic vol]Platelet mean volume [Entitic volume] in Blood by Automated count 9.5-13.5[facility] HealthcarePlatelets Auto (Bld) [#/Vol]on 53-69-4952Dpquxhnps (Bld) [#/Vol]Platelets [#/volume] in Blood by Automated riznj170-889VnqzxagkrPromedica Bay Park HospitalRBC Auto (Bld) [#/Vol]on 04-21-2024 RBC (Bld) [#/Vol]Erythrocytes [#/volume] in Blood by Automated countLow4.70-6.10 [facility] Limaerum or plasma albumin/globulin mass ratioon 16-41-7962Wujspfg/Globulin [Mass ratio]Serum or plasma albumin/globulin mass ratioSCCI Hospital Limaerum or plasma anion gap determinationon 99-14-1407Qyhwg gap [Moles/Vol]Serum or plasma anion gap determinationSCCI Hospital Limaerum or plasma total cholesterol/high density lipoprotein (HDL) cholesterol mass lisbeth 00-30-9154Hhntmlvlgsi.total/Cholesterol in HDL [Mass ratio]Serum or plasma total cholesterol/high density lipoprotein (HDL) cholesterol mass ratPromedica Bay Park HospitalComment on above:3.3 - 4.4 LOW RISK4.4 - 7.1 AVERAGE RISK7.1 - 11.0 MODERATE RISK>11.0 HIGH RISK Laboratory - Chemistry and Chemistry - challengeon 07-58-4964Ochvfuohg Ql (U) NegativePromedica Bay Park HospitalGlucose (U) [Mass/Vol]NegativePromedica Bay Park HospitalKetones Ql (U)1.005[facility] HospitalpH (U)5.0 [pH][facility] Limapecific gravity (U) [Rel density] 1.005[facility] HospitalUrobilinogen (U) [Mass/Vol]Positive [facility] HospitalLaboratory - Specimen informationon 03-27-2024 Appearance (U)cloudyPromedica Bay Park HospitalColor (U)darkyellow [facility] HospitalLaboratory - Urinalysison 64-72-3268Ihdhoqrhm esterase Test strip Ql (U)moderatePromedica Bay Park HospitalNitrite Ql (U)NegativePromedica Bay Park HospitalProtein Ql (U)[address] [place], [place] [address]No Panel Informationon 96-01-9459Yfrkp Occult Blood8.0[facility] HospitalCBC AUTO DIFFon 46-16-1968FAAJ #0.0 103/ulNormal0.0-0.1 [facility] ColumbusComment on above:Performed By: #### CBC #### [facility] [place] [facility] [address] [address] [address] Jordan JensenBasophils/100 WBC (Bld)0.4 %Normal0.2-2.0[facility] [place] [facility] Comment on above:Performed By: #### CBC #### [facility] [place] [facility] [address] [address] [address] Jordan Malone #0.3 103/ulNormal0.0-0.7The [facility] [place] [facility] HospitalComment on above: Performed By: #### CBC #### [facility] [place] [facility] [address] [address] [address] Jordan Carbajalosinophils/100 WBC (Bld)3.1 %Normal0.9-7.0[facility] [place] [facility] Comment on above:Performed By: #### CBC #### [facility] [place] [facility] [address] [address] [address] Jordan Carbajalrythrocyte distribution width (RBC) [Ratio]12.1 %Uaqpqn57.0-15.0 [facility] [place] [facility] HospitalComment on above:Performed By: #### CBC #### [facility] [place] [facility] [address] [address] [address] Jordan JensenHematocrit (Bld) [Volume fraction]40.9 %Critically low42.0-54.0 [facility] [place] [facility] HospitalComment on above:Performed By: #### CBC #### [facility] [place] [facility] [address] [address] [address] Jordan JensenHemoglobin (Bld) [Mass/Vol]14.4 g/wUBkuaut25.0-18.0The [facility] [place] [facility] HospitalComment on above:Performed By: #### CBC #### [facility] [place] [facility] [address] [address] [address] Jordan Dodge #0.06 10e3/ulCritically high0.00-0.03The [facility] [place] [facility] Comment on above:Performed By: #### CBC #### [facility] [place] [facility] [address] [place] [address] Dr. Jordan Dodge %0.7 %Critically high0.0-0.5The [facility] [place] [facility] HospitalComment on above:Performed By: #### CBC #### [facility] [place] [facility] [address] [place] [address] Dr. Jordan Moreno #2.3 103/ulNormal1.2-3.8The [facility] [place] [facility] HospitalComment on above:Performed By: #### CBC #### [facility] [place] [facility] [address] [place] [address] Dr. Jordan Eduardohocytes/100 WBC (Bld)27.9 %Mwswjo29.5-60.0The [facility] [place] [facility] HospitalComment on above:Performed By: #### CBC #### [facility] [place] [facility] [address] [place] [address] Dr. Jordan HenrySELECT MEDICAL [facility] DIFF REQNONormalThe [facility] [place] [facility] HospitalComment on above: Performed By: #### CBC #### [facility] [place] [facility] [address] [place] [address] Dr. Jordan Tejada (RBC) [Entitic mass]32.5 mkAobxqt48.9-34.0The [facility] [place] [facility] HospitalComment on above:Performed By: #### CBC #### [facility] [place] [facility] [address] [place] [address] Dr. Jordan Tejada (RBC) [Mass/Vol]35.2 g/rIIhzpbh53.9-35.2The [facility] [place] [facility] HospitalComment on above:Performed By: #### CBC #### [facility] [place] [facility] [address] [place] [address] Dr. Jordan Tejada (RBC) [Entitic vol]92.3 wFVnzcit61.0-94.0The [facility] [place] [facility] HospitalComment on above:Performed By: #### CBC #### [facility] [place] [facility] [address] [address] [address] Jordan Looney #0.6 103/ulNormal0.3-0.8The [facility] [place] [facility] HospitalComment on above:Performed By: #### CBC #### [facility] [place] [facility] [address] [address] [address] Jordan Turnerocytes/100 WBC (Bld)7.6 %Normal1.7-12.0The [facility] [place] [facility] Comment on above:Performed By: #### CBC #### [facility] [place] [facility] [address] [place] [address] Dr. Jordan Arriaga #4.9 103/ulNormal1.4-6.5The [facility] [place] [facility] HospitalComment on above:Performed By: #### CBC #### [facility] [place] [facility] [address] [place] [address] Dr. Jordan Cesarutrophils/100 WBC (Bld)60.3 %Zlvjkg76.0-75.0The [facility] [place] [facility] HospitalComment on above:Performed By: #### CBC #### [facility] [place] [facility] [address] [place] [address] Dr. Jordan Cerrato mean volume (Bld) [Entitic vol]10.1 fLNormal9.5-13.5The [facility] [place] [facility] HospitalComment on above:Performed By: #### CBC #### [facility] [place] [facility] [address] [place] [address] Dr. Jordan JensenPLT189 103/eaPmmbft136-225Zkl [facility] HospitalComment on above: Performed By: #### CBC #### [facility] [place] [facility] [address] [place] [address] Dr. Jordan JensenRBC4.43 106/ulCritically low4.70-6.10The [facility] [place] [facility] HospitalComment on above:Performed By: #### CBC #### [facility] [place] [facility] [address] [place] [address] Dr. Jordan JensenWBC8.1 103/ulNormal4.0-11.0The [facility] [place] [facility] HospitalComment on above: Performed By: #### CBC #### [facility] [place] [facility] [address] [place] [address] Dr. Jordan JensenFOLATEon 60-20-6779WHIBYH70.30 ng/mLNormal8.60-58.90The [facility] [place] [facility] HospitalComment on above:Performed By: #### VITB12, FOL, FETIBC #### [facility] [place] [facility] [address] [place] [address] Dr. Jordan Choi AND TIBCon 05-22-2022% VZFFXVXXAE06.3 %NormalThe [facility] [place] [facility] HospitalComment on above:Performed By: #### VITB12, FOL, FETIBC #### [facility] [place] [facility] [address] [place] [address] Dr. Jordan Choi [Mass/Vol]89.0 ug/kZStpmvq23.0-175.0[facility] Comment on above:Performed By: #### VITB12, FOL, FETIBC #### [facility] [place] [facility] [address] [place] [address] Dr. Jordan JensenTIBFlorin MFFPUI851.0 ug/hMJvllag939.0-450.0[facility] Comment on above:Performed By: #### VITB12, FOL, FETIBC #### [facility] [place] [facility] [address] [place] [address] Dr. Jordan JensenVITAMIN B12on 80-46-0516Otgswvkpt (Vitamin B12) [Mass/Vol]507.0 pg/iMUfhjcr225.0-986.0The [facility] [place] [facility] HospitalComment on above:Performed By: #### VITB12, FOL, FETIBC #### [facility] [place] [facility] [address] [place] [address] Dr. Jordan JensenCBFlorin AUTO DIFFon 64-15-2907ARIC #0.0 103/ulNormal0.0-0.1[facility] on above:Performed By: #### CBC #### [facility] [place] [facility] [address] [place] [address] Dr. Jordan JensenBasophils/100 WBC (Bld)0.5 %Normal0.2-2.0[facility] Comment on above:Performed By: #### CBC #### [facility] [place] [facility] [address] [place] [address] Dr. Jordan Malone #0.3 103/ulNormal0.0-0.7The [facility] [place] [facility] HospitalComment on above: Performed By: #### CBC #### [facility] [place] [facility] [address] [place] [address] Dr. Jordan Carbajalosinophils/100 WBC (Bld)3.7 %Normal0.9-7.0The [facility] Comment on above:Performed By: #### CBC #### [facility] [address] [place] [address] Dr. Jordan Carbajalrythrocyte distribution width (RBC) [Ratio]12.1 %Ghksfw81.0-15.0 [facility] ColumbusComment on above:Performed By: #### CBC #### [facility] [place] [facility] [address] [place] [address] Dr. Jordan JensenHematocrit (Bld) [Volume fraction]40.3 %Critically low42.0-54.0 [facility] ColumbusComment on above:Performed By: #### CBC #### [facility] [address] [place] [address] Dr. Jordan JensenHemoglobin (Bld) [Mass/Vol]13.8 g/dLCritically low14.0-18.0[facility] ColumbusComment on above:Performed By: #### CBC #### [facility] [place] [facility] [address] [place] [address] Dr. Jordan Dodge #0.06 10e3/ulCritically high0.00-0.03The [facility] [place] [facility] Comment on above:Performed By: #### CBC #### [facility] [place] [facility] [address] [place] [address] Dr. Jordan Dodge %0.7 %Critically high0.0-0.5The [facility] [place] [facility] HospitalComment on above:Performed By: #### CBC #### [facility] [place] [facility] [address] [place] [address] Dr. Jordan Moreno #2.3 103/ulNormal1.2-3.8The [facility] [place] [facility] HospitalComment on above:Performed By: #### CBC #### [facility] [place] [facility] [address] [place] [address] Dr. Jordan Guillenmphocytes/100 WBC (Bld)28.2 %Qyorjc16.5-60.0The [facility] [place] [facility] HospitalComment on above:Performed By: #### CBC #### [facility] [place] [facility] [address] [place] [address] Dr. Jordan Dior DIFF REQNONormalThe [facility] [place] [facility] HospitalComment on above: Performed By: #### CBC #### [facility] [place] [facility] [address] [place] [address] Dr. Jordan Tejada (RBC) [Entitic mass]32.2 zvRssgkz70.9-34.0The [facility] [place] [facility] HospitalComment on above:Performed By: #### CBC #### [facility] [place] [facility] [address] [place] [address] Dr. Jordan Tejada (RBC) [Mass/Vol]34.2 g/tJMtxaod24.9-35.2The [facility] [place] [facility] HospitalComment on above:Performed By: #### CBC #### [facility] [address] [place] [address] Dr. Jordan Winter (RBC) [Entitic vol]94.2 fLCritically high80.0-94.0[facility] ColumbusComment on above:Performed By: #### CBC #### [facility] [address] [place] [address] Dr. Jordan Looney #0.9 103/ulCritically high0.3-0.8ThMagruder [facility] Comment on above:Performed By: #### CBC #### [facility] [address] [place] [address] Dr. Jordan Turnerocytes/100 WBC (Bld)10.4 %Normal1.7-12.0[facility] Comment on above:Performed By: #### CBC #### [facility] [address] [place] [address] Dr. Jordan Arriaga #4.6 103/ulNormal1.4-6.5The [facility] [place] [facility] HospitalComment on above:Performed By: #### CBC #### [facility] [address] [place] [address] Dr. Jordan Cesarutrophils/100 WBC (Bld)56.5 %Jsxiwa15.0-75.0[facility] ColumbusComment on above:Performed By: #### CBC #### [facility] [address] [place] [address] Dr. Jordan JensenPlatelet mean volume (Bld) [Entitic vol]10.5 fLNormal9.5-13.5The [facility] [place] [facility] HospitalComment on above:Performed By: #### CBC #### [facility] [address] [place] [address] Dr. Jordan JensenPLT187 103/dxDbsbqh309-367Lkv [facility] HospitalComment on above: Performed By: #### CBC #### [facility] [address] [place] [address] Dr. Jordan JensenRBC4.28 106/ulCritically low4.70-6.10The [facility] [place] [facility] HospitalComment on above:Performed By: #### CBC #### [facility] [address] [place] [address] Dr. Jordan JensenWBC8.2 103/ulNormal4.0-11.0The [facility] [place] [facility] HospitalComment on above: Performed By: #### CBC #### [facility] [address] [place] [address] Dr. Jordan JensenLIPID PROFILEon 66-91-3309IARK-HDL RATIO NORMSAultman Orrville HospitalComment on above:Result Comment: 3.3 - 4.4 LOW RISK 4.4 - 7.1 AVERAGE RISK 7.1 - 11.0 MODERATE RISK >11.0 HIGH RISKPerformed By: #### LIPID, ALT #### [facility] [address] [place] [address] Dr. Jordan JensenCholesterol [Mass/Vol]155 mg/dLNormal<=200The [facility] Comment on above:Performed By: #### LIPID, ALT #### [facility] [address] [address] [address] Jordan JensenCholesterol in HDL [Mass/Vol]27 mg/dLCritically dqg21-44Gpz [facility] on above:Performed By: #### LIPID, ALT #### [facility] [address] [address] [address] Jordan JensenCholesterol in LDL [Mass/Vol]92.2 mg/dLDetwiler Memorial HospitalComselect specialty hospital on above:Performed By: #### LIPID, ALT #### [facility] [address] [address] [address] Jordan Whaleyestersylwia.total/Cholesterol in HDL [Mass ratio]5.7 {ratio} NormalThe [facility] on above:Performed By: #### LIPID, ALT #### [facility] [address] [place] [address] Dr. Jordan Mckenzie NORMAL> or = 60 mg/dl - LOW CARDIOVASCULAR RISK <40 mg/dl - HIGH CARDIOVASCULAR RISKSelect Medical Specialty Hospital - [facility]ull on above:Performed By: #### LIPID, ALT #### [facility] [address] [address] [address] Jordan Manrique CALC NORMALSEE BELOWDetwiler Memorial HospitalComselect specialty hospital on above:Result Comment: <100 mg/dl OPTIMAL 100 - 129 mg/dl NEAR OR ABOVE OPTIMAL 130 - 159 mg/dl BORDERLINE HIGH 160 - 189 mg/dl HIGH >190 mg/dl VERY HIGH Performed By: #### LIPID, ALT #### [facility] [address] [place] [address] Dr. Jordan JensenTriglyceride [Mass/Vol]179 mg/dLCritically high<=150The [facility] on above:Performed By: #### LIPID, ALT #### [facility] [address] [place] [address] Dr. Jordan JensenVLDL CALC35.8 mg/dLSelect Medical Specialty Hospital - [facility] on above: Performed By: #### LIPID, ALT #### [facility] [address] [address] [address] Jordan Dang 79-76-4235VFM [Catalytic activity/Vol]60 U/TWcnxeb16-28LpkChildren'S Hospital Of ColumbusComment on above:Performed By: #### LIPID, ALT #### [facility] [address] [address] [address] Jordan Riley Function [facility] [phone] Function [facility] #: [id number] [facility] PT. Name: Earl Jiménez Date: 06/11/2019 Date [...] M.D. 06/19/2019 09:32 A Chris Leon M.D. [employer]; [facility] and Sleep Medicine I personally reviewed the films/tests and agree with the resident's interpretation. Date Dict: 06/12/2019/01:37 P/Joanne Lindsey MD Date Trans: 06/13/2019 05:51 A/mmo DN_JN:[id number] Alliance Community Hospital Vital Signs Date TimeVital SignValuePerforming GvacxhihsIzzdclok36-62-4949 09:26-0400Body qxvvpo670.88 cmBenjamin Ball DO Work Phone: [phone]-[facility]10-02-2025 09:26-0400 Body mass index (BMI) [Ratio]37.3 kg/v2Vbjytjtu Ball DO Work Phone: [phone]10-02-2025 09:26-0400 Body .96 kgBenjamin Ball DO Work Phone: [phone]10-02-2025 09:26-0400 Diastolic blood ikllvoad13 mm[Hg]Ruben Ball DO Work Phone: [phone] [place], [place] [address]10-02-2025 09:26-0400 Heart rate60 /minBenjamin Ball DO Work Phone: [phone] [place], [place] [address]10-02-2025 09:26-0400 Respiratory rate12 /minBenjamin Ball DO Work Phone: [phone] [place], [place] [address]10-02-2025 09:26-0400 Systolic blood uxejgmni012 mm[Hg]Ruben Ball DO Work Phone: [phone]02-24-2025 09:33-0500 Diastolic blood wbfypivw97 mm[Hg]JAYASHREE NKANSAH-AMANKRA [facility]02-24-2025 09:33-0500Mean blood tjlgykzb952 mm[Hg]JAYASHREE NKANSAH-AMANKRA [facility]02-24-2025 09:33-0500Systolic blood eyixceek317 mm[Hg]JAYASHREE NKANSAH-AMANKRA [facility]02-24-2025 08:02-0500Blood Pressure LocationKWABENA NKANSAH-AMANKRA [facility]02-24-2025 08:02-0500Body .6 [degF]JAYASHREE NKANSAH-AMANKRA [facility]02-24-2025 08:02-0500Diastolic blood mm[Hg]JAYASHREE NKANSAH-AMANKRA [facility]02-24-2025 08:02-0500Heart rate58 /minKWABENA NKANSAH-AMANKRA [facility]02-24-2025 08:02-0500Respiratory rate18 /minKANTONIOBENA NKANSAH-AMANKRA [facility]02-24-2025 08:02-0500Systolic blood gvzpplcu625 mm[Hg]JAYASHREE NKANSAH-AMANKRA [facility]01-20-2025 13:24-0500Body ifneqk327.88 cmBenjamin Ball DO Work Phone: [facility]01-20-2025 13:24-0500 Body mass index (BMI) [Ratio]38.1 kg/d4Cgxceuic Ball DO Work Phone: [facility]01-20-2025 13:24-0500 Body zxxrca330.62 kgBenjamin Ball DO Work Phone: [facility]01-20-2025 13:24-0500 Diastolic blood bfbhkiec61 mm[Hg]Ruben Ball DO Work Phone: [facility]01-20-2025 13:24-0500 Heart rate67 /minBenjamin Ball DO Work Phone: [facility]01-20-2025 13:24-0500 Respiratory rate12 /minBenjamin Ball DO Work Phone: [facility]01-20-2025 13:24-0500 Systolic blood psnappgr292 mm[Hg]Ruben Ball DO Work Phone: [facility]01-10-2025 13:00-0500 Hourly RoundingKWABENA NKANSAH-AMANKRA [facility]01-10-2025 13:00-0500 Promise to ReturnKWABENA NKANSAH-AMANKRA [facility]01-10-2025 12:06-0500Heart rate73 /minKWABENA NKANSAH-AMANKRA [facility]01-10-2025 12:06-2610KiM9% (BldA) [Mass fraction]98 %JAYASHREE NKANSAH-AMANKRA [facility]01-10-2025 12:05-0500Blood Pressure LocationKANTONIOBENA NKANSAH-AMANKRA [facility]01-10-2025 12:05-0500 Diastolic blood ppzhfack01 mm[Hg]JAYASHREE NKANSAH-AMANKRA [facility]01-10-2025 12:05-0500Mean blood uhezztpb919 mm[Hg]JAYASHREE NKANSAH-AMANKRA [facility]01-10-2025 12:05-0500 Systolic blood wdbnfjpu070 mm[Hg]JAYASHREE NKANSAH-AMANKRA [address] [place], [place] 4350401-10-2025 12:05-0500Body zgpgeqjoecp82.06 [degF]JAYASHREE NKANSAH-AMANKRA [address] [place], [place] 7013901-10-2025 12:00-0500 Hourly RoundingKWABENA NKANSAH-AMANKRA [address]01-10-2025 12:00-0500 Promise to ReturnKWABENA NKANSAH-AMANKRA [address] [place], [place] 7013901-10-2025 11:00-0500 Hourly RoundingKWABENA NKANSAH-AMANKRA [address]01-10-2025 11:00-0500 Promise to ReturnKWABENA NKANSAH-AMANKRA [address] [place], [place] 7013901-10-2025 10:13-0500 Diastolic blood osyljkbw52 mm[Hg]JAYASHREE NKANSAH-AMANKRA [address] [place], [place] 7013901-10-2025 10:13-0500 Systolic blood mm[Hg]JAYASHREE NKANSAH-AMANKRA [address] [place], [place] 7013901-10-2025 08:47-0500Body igjiosbduxg75.88 [degF]JAYASHREE NKANSAH-AMANKRA [address] [place], [place] 7013901-10-2025 08:47-0500 Diastolic blood gariaddu30 mm[Hg]JAYASHREE NKANSAH-AMANKRA [address] [place], [place] 7013901-10-2025 08:47-0500Heart rate65 /minKWABENA NKANSAH-AMANKRA [address] [place], [place] 7013901-10-2025 08:47-0500Mean blood mm[Hg]JAYASHREE NKANSAH-AMANKRA [facility]01-10-2025 08:47-2710EnD5% (BldA) [Mass fraction]96 %JAYASHREE NKANSAH-AMANKRA [address] [place], [place] 7013901-10-2025 08:47-0500 Systolic blood squjkfwf252 mm[Hg]JAYASHREE NKANSAH-AMANKRA [address] [place], [place] 7013901-10-2025 00:00-0500Heart rate74 /minKWABENA NKANSAH-AMANKRA [address] [place], [place] 4350401-10-2025 00:00-0500Mean blood iwdwbyqw706 mm[Hg]JAYASHREE NKANSAH-AMANKRA [address] [place], [place] 7013901-10-2025 00:00-7606CuW4% (BldA) [Mass fraction]96 %JAYASHREE NKANSAH-AMANKRA [facility]01-09-2025 19:34-0500Mean blood gwckekgk48 mm[Hg]JAYASHREE NKANSAH-AMANKRA [facility]01-09-2025 19:34-0500Body sabwgbkdnvy13.06 [degF]JAYASHREE NKANSAH-AMANKRA [address] [place], [place] 7013901-09-2025 16:58-0500 Respiratory rate18 /minKWABENA NKANSAH-AMANKRA [address] [place], [place] 4350401-09-2025 16:57-0500Mean blood whtotoes06 mm[Hg]JAYASHREE NKANSAH-AMANKRA [address] [place], [place] 7013901-09-2025 12:53-0500Body vbyzgakkdzj35.52 [degF]JAYASHREE NKANSAH-AMANKRA [address] [place], [place] 7013901-09-2025 12:20-0500Body eetosqeszhi08.7 [degF]JAYASHREE NKANSAH-AMANKRA [address] [place], [place] 7013901-09-2025 12:20-0500Mean blood ekypzhdp20 mm[Hg]JAYASHREE NKANSAH-AMANKRA [address] [place], [place] 7013901-09-2025 12:20-0500 Respiratory rate12 /minKWABENA NKANSAH-AMANKRA [address] [place], [place] 7013901-09-2025 12:16-0500 Respiratory rate15 /minKWABENA NKANSAH-AMANKRA [address]01-09-2025 12:10-0500 Respiratory rate7 /minKWABENA NKANSAH-AMANKRA [address] [place], [place] 7013901-09-2025 11:26-0500Blood Pressure LocationKWABENA NKANSAH-AMANKRA [address] [place], [place] 7013901-09-2025 11:26-0500Body dvwyrcbahvk07.7 [degF]JAYASHREE NKANSAH-AMANKRA [address] [place], [place] 7013901-09-2025 11:15-0500 Respiratory rate10 /minKWABENA NKANSAH-AMANKRA [address] [place], [place] 7013901-09-2025 11:10-0500 Respiratory rate10 /minKWABENA NKANSAH-AMANKRA [address] [place], [place] 7013901-09-2025 06:20-0500Body tyjkuwkfqxq11.88 [degF]JAYASHREE NKANSAH-AMANKRA [address] [place], [place] 7013901-09-2025 06:20-0500Heart rate70 /minKWABENA NKANSAH-AMANKRA [facility]01-02-2025 07:29-0500Blood Pressure LocationKWABENA NKANSAH-AMANKRA [facility]01-02-2025 07:29-0500 Diastolic blood pjnkgkpy52 mm[Hg]JAYASHREE NKANSAH-AMANKRA [address] [place], [place] 7013901-02-2025 07:29-0500Heart rate61 /minKWABENA NKANSAH-AMANKRA [facility]01-02-2025 07:29-0500Mean blood sbjjgouk273 mm[Hg]JAYASHREE NKANSAH-AMANKRA [address] [place], [place] 7013901-02-2025 07:29-0500 Systolic blood eeqgvvxt148 mm[Hg]JAYASHREE NKANSAH-AMANKRA [facility]01-02-2025 07:28-0500Heart rate61 /ParveenBENA NKANSAH-AMANKRA [facility]01-02-2025 07:28-2102MvQ2% (BldA) [Mass fraction]98 %JAYASHREE NKANSAH-AMANKRA [facility]01-02-2025 07:28-0500Blood Pressure LocationKWABENA NKANSAH-AMANKRA [facility]01-02-2025 07:28-0500 Diastolic blood tlozbjfp25 mm[Hg]JAYASHREE NKANSAH-AMANKRA [address] [place], [place] 4350401-02-2025 07:28-0500Mean blood tqoznocb94 mm[Hg]JAYASHREE NKANSAH-AMANKRA [facility]01-02-2025 07:28-0500 Systolic blood nslqyblg621 mm[Hg]JAYASHREE GURINDERANSAH-AMANKRA [facility]01-02-2025 07:27-0500 Respiratory rate18 /minMANUELBENA NKANSAH-AMANKRA [facility]12-06-2024 08:30-0500Blood Pressure LocationKANTONIOBENA NKANSAH-AMANKRA [facility] 145782-06-2024 08:30-0500Diastolic blood arntpkei081 mm[Hg]JAYASHREE NKANSAH-AMANKRA [facility] 145782-06-2024 08:30-0500Heart rate72 /Jose JNA GURINDERANSAH-AMANKRA [facility] 145782-06-2024 08:30-0500Respiratory rate16 /minGEOVANINA GURINDERANSAH-AMANKRA [facility] 145782-06-2024 08:30-0500Systolic blood yqbttuzf358 mm[Hg]JAYASHREE NKANSAH-AMANKRA [facility] 145781-22-2024 09:48-0500Diastolic blood xguroitu99 mm[Hg]Ruben Ball DO Work Phone: [facility]11-22-2024 09:48-0500 Heart rate58 /minBenjamin Ball DO Work Phone: [facility]11-22-2024 09:48-0500 Respiratory rate16 /minBenjamin Ball DO Work Phone: [facility]11-22-2024 09:48-0500 SaO2% (BldA) [Mass fraction]97 %Ruben Ball DO Work Phone: [facility]11-22-2024 09:48-0500 Systolic blood pxswcuto737 mm[Hg]Ruben Ball DO Work Phone: [facility]11-22-2024 07:33-0500 Body wubucy439.88 cmBenjamin Ball DO Work Phone: [facility]11-22-2024 07:33-0500 Body .47 kgBenjamin Ball DO Work Phone: [facility]09-26-2024 11:22-0400 Body tmbtta674.88 cmProm[facility] Hospital09-26-2024 11:22-0400Body mass index (BMI) [Ratio]36.4 kg/l2QjktxbcwgPromedica Bay Park Hospital09-26-2024 11:22-0400Body casbtrngtwb64.8 [degF][facility]09-26-2024 11:22-0400Body .01 kgPromedica Bay [facility] Hospital09-26-2024 11:22-0400Diastolic blood vhsmappn34 mm[Hg][facility] 03-27-2024 11:22-0400Heart rate70 /minProm[facility]ica [facility] Hospital 03-27-2024 11:22-0752IrL5% (BldA) [Mass fraction]97 %[facility]09-26-2024 11:22-0400Systolic blood bppssyps988 mm[Hg][facility]09-19-2024 08:52-0400Body wzebyz912.88 cmPromedica Bay [facility] Hospital09-19-2024 08:52-0400Body mass index (BMI) [Ratio]37.5 kg/m2 [facility]09-19-2024 08:52-0400Body .7 kg [facility]09-19-2024 08:52-0400Diastolic blood uzbukfwx84 mm[Hg][facility]09-19-2024 08:52-0400Heart rate64 /min [facility]09-19-2024 08:52-0400Respiratory rate12 /min [facility]09-19-2024 08:52-0400Systolic blood inykoyam505 mm[Hg][facility]09-07-2023 08:30-0400Body nzpvty003.88 cmBenjames Shea Other [employer] Other 09-07-2023 08:30-0400Body mass index (BMI) [Ratio] 36.86 kg/a4Osbnqfmo Ball Other [employer] Other 09-07-2023 08:30-0400Body szprae543.29 kgBenjames Shea Other [employer] Other 09-07-2023 08:30-0400Diastolic blood zzxiqqpf11 mm[Hg] Ruben Monse Other [employer] Other 09-07-2023 08:30-0400Respiratory rate12 /minBenjames Shea Other [employer] Other 09-07-2023 08:30-0400Systolic blood kgecziba451 mm[Hg] Ruben Shea Other [employer] Other Encounters Encounter DateEncounter TypeCare ProviderFacilityStart: 04-02-2025 End: 71-30-5335abyozoyrwcQcsjfkmx Ball DO Work Phone: [facility] Work Phone: Start: 04-02-2025 End: 50-25-6974Hqvjuub encounter procedureBenjamin Ball DO-[facility] Work Phone: Start: 03-19-2025 End: 86-44-3899Tjzmgj flowsheetAbby De Souza MD Work Phone: no[facility]ologyStart: 03-19-2025 End: 02-26-0188Jsdgzx flowsheetAbby De Souza MD Work Phone: noMS [facility]atologyStart: 03-19-2025 End: 30-60-4446Ghwrfx outpatient visit 15 minutesEmzuleyka De Souza MD Work Phone: no [place] DermatologyComment on above:Seborrheic keratosis (Primary Dx); Angioma of skin; Lentigines; Skin tagStart: 03-19-2025 End: 13-16-2496wbcqmybshxHYHRA A PETITTINot AvailableStart: 12-01-2024 End: 05-84-1589qnfmhyxtgyHYMYULE NKANSAH-AMANKRAFacility:EU kStart: 12-01-2024 End: 56-37-3873Qhgkfpn encounter procedureAJYASHREE JIN [facility] Start: 11-07-2024 End: 59-20-1709yrdrcujgbzLAJYNThe MetroHealth Systemtart: 10-28-2024 End: 08-23-5364Unncky flowsheetMago Travis DO Work Phone: noms NB OPHTStart: 10-28-2024 End: 37-51-8624Xpyveu flowsheetMago Millerhler DO Work Phone: [facility] NB OPHTStart: 10-28-2024 End: 68-23-2323liczvylscbQHDVICRL D ZAHLERNot AvailableStart: 08-25-2024 End: 79-49-7431hkareysmclUIJVMGS NKANSAH-AMANKRAFacility:EU [place]walkStart: 08-25-2024 End: 29-84-1722Wuwlyyj encounter procedureJAYASHREE JIN [facility] Start: 07-28-2024 End: 21-62-0354Fazmtafrg encounterAnyigus Giron [facility] Work Phone: [facility] AUDComment on above:Problem with hearing aid wireStart: 07-21-2024 End: 31-54-3030rwvcwzsvgfJxxycawi Ball DO Work Phone: [facility] Work Phone: Start: 07-21-2024 End: 04-27-5204Yujrnro encounter procedureBeemmanuel Shea DO Work Phone: [facility]Bl[facility] Work Phone: Start: 94-31-5533Jzy-patient / Non-visitBeemamnuel Shea DO Work Phone: [facility] Physician [facility] Work Phone: Start: 07-10-2024 End: 46-13-4757lanrnactlhGN KWABENA NKANSAH-AMANKRAFacility:FTMCStart: 07-10-2024 End: 67-34-4113Gpzincz encounter procedureJAYASHREE WHITTEN-NANCYANKRA [facility] Start: 07-09-2024 End: 88-02-1049Ksyhsxx encounter procedureNoms Sh Aud [facility] - [facility] [place] CI AUDComment on above:Sensorineural hearing loss, bilateral (Primary Dx)Start: 07-09-2024 End: 27-75-4680ioooicbezvWNMYUDKL ZAHLERNot AvailableStart: 07-03-2024 End: 56-37-6797vpyngonohkUNBSETC NKANSAH-AMANKRAFacility:FTMCStart: 07-03-2024 End: 36-56-4535Dliwndp encounter procedureJAYASHREE WHITTEN-AMANKRA [facility] Start: 06-18-2024 End: 10-68-2116Yucarw flowsheetKaty LacyMartinsville Memorial Hospital-A Work Phone: noms CI AUDStart: 06-18-2024 End: 32-17-3992Xuoqoz flowsheetKaty LacyMartinsville Memorial Hospital-A Work Phone: noms CI AUDStart: 06-18-2024 End: 46-56-1234Uxfbjmcw SupportDelouisa Giron [facility] Work Phone: noms CI AUDComment on above:Sensorineural hearing loss, bilateral (Primary Dx)Start: 06-06-2024 End: 93-95-3970qmuxmvpunnKIWAJTU NKANSAH-NERAFacility:EU [place]kyStart: 06-06-2024 End: 51-97-8124Bwjedkd encounter procedureKDEUCE WHITTEN-FREDI [facility] Start: 45-93-6845Eok-patient / Non-visitBenjamin Ball DO Work Phone: [facility] Physician [facility] Work Phone: Start: 64-43-4238Uzs-patient / Non-visitBenjamin Ball DO Work Phone: [facility] Physician [facility] Work Phone: Start: 05-23-2024 End: 34-26-5527Zngmbsftc to same day surgery centerBenjamin Ball DO Work Phone: [facility] Work Phone: Start: 05-23-2024 End: 65-16-7343ahtaukfpliHfwfbvne BallFacility:[facility] Start: 05-20-2024 End: 72-76-4429Rvzifxq encounter procedureBenjamin Ball DO Work Phone: [facility] Meherrin Work Phone: Start: 05-20-2024 End: 12-54-7432cikdwwigkyIgetfute Ball DO Work Phone: [facility] Work Phone: Start: 06-95-0430Dsi-patient / Non-visitBenjamin Ball DO Work Phone: [facility] Group-[facility] Work Phone: Start: 04-29-2024 End: 00-38-2516sqtsqjozcmFZLUOSZ NKANSAH-NERAFacility:EU kStart: 04-29-2024 End: 00-22-0341Aiqgbxt encounter procedureKDEUCE WHITTEN-FREDI [facility] Start: 04-23-2024 End: 01-26-0783Wewtdc flowsheetMago Travis DO Work Phone: noms NB OPHTStart: 04-23-2024 End: 68-51-2085Lxhmmx Josie Travis DO Work Phone: n[facility] NB OPHTStart: 47-92-0293nbasvrzgpzBHQWZJN NKANSAH-NERAFacility:EU [place]walkStart: 04-23-2024 End: 36-18-6535jkarpzldxbAABMRBIU D ZAHLERNot AvailableStart: 04-21-2024 End: 11-59-2740Zamorg Philipp De Souza MD Work Phone: noms SWS DERMStart: 04-21-2024 End: 70-77-7419Pclfowcolby De Souza MD Work Phone: noms SWS DERMStart: 04-21-2024 End: 95-19-0730Mprtjk outpatient visit 15 minutesEmzuleyka De Souza MD Work Phone: [facility] DERMComment on above:Seborrheic keratosis (Primary Dx); Angioma of skin; LentiginesStart: 04-21-2024 End: 44-47-0451tunhryjwvaUYLKX A PETITTINot AvailableStart: 18-24-9098Fga- patient / Non-visitBenjamin Ball DO Work Phone: [facility] Work Phone: Start: 03-27-2024 End: 58-64-1871dinvomydvwIfqaxwikkTriHealth [facility] Work Phone: Start: 03-27-2024 End: 65-06-2423Zzjjxrb encounter procedureW[facility] Work Phone: Start: 03-20-2024 End: 62-82-9882dpvicaceppEydpyobyjTriHealth [facility] Work Phone: Start: 03-20-2024 End: 17-92-4540Zvkwsxo encounter procedureW[facility] Work Phone: Start: 55-42-7472Sgfyksh encounter procedureSCCI Hospital Limatart: 04-18-2023 End: 27-43-2653gmwwjilckhYhtovsij Ball Other [employer] Other Start: 66-82-7898Ueglknbgf encounterBenjamin BallFPG [facility] Medical ClinicStart: 04-17-2023 End: 63-81-3034zbkrtquhjpNaiksmjr Ball Other [employer] Other Start: 26-16-8344Dfwyjbbzc encounterBenjamin BallFPG [facility] ClinicStart: 04-05-2023 End: 05-42-9348lomynfuaqgNszxwtfq Ball Other [employer] Other Start: 68-22-0001Kzroae outpatient visit 15 minutes Ruben Shea [facility] ClinicStart: 03-13-2023 End: 57-03-4432jizlfrnwwvTruiwdka Ball Other nort [employer] Other Start: 39-21-0585Bckrvxfeb encounterBenjames Shea Medical ClinicStart: 03-08-2023 End: 16-85-5347fjjksmrxhoIsnptcuf Ball Other [employer] Other Start: 13-50-7677Srdwovm encounter procedureBeemmanuel Shea Medical ClinicStart: 05-22-2022 End: 85-14-5312fblkcpbkaqKS RUBEN BALLFacility:S4Bboty: 03-27-2022 End: 37-12-6627ontkhbvneoMZ RUBEN BALLFacility:H1 Procedures DateProcedureProcedure DetailPerforming ClinicianStart: 62-86-1151Lvlvsyydfogj ophthalmic imaging optic nerveJotova Stovall Bina DO Work Phone: Start: 10-28-2024 End: 02-35-6046Frmfd medical xm&eval comprhnsv estab pt 1/>Glaucoma suspect of both eyesJotova Stovall Bina DO Work Phone: comment on above:Glaucoma suspect of both eyes (Primary Dx)Start: 86-84-0612Itzmaboulscio prostatectomyKWAKRISHNA DIAMONDCHAU Start: 98-44-1982BWFMVLCN FUNCTION TESTSKaty Giron [facility] Work Phone: start: 48-99-6776Wbykafww cystoscopyKDEUCE WHITTEN-AMANKRA Start: 01-44-7037WagejslxckoXssisnsx Ball DO Work Phone: Start: 84-11-7882EZ scan of prostateBenjalucho Ball DO Work Phone: Start: 97-56-6941Capyks field xm uni/bi w/interp extended examJotova Travis DO Work Phone: Start: 04-23-2024 End: 91-38-4542Hnhtn medical xm&eval comprhnsv estab pt 1/>Glaucoma suspect of both eyesMago Travis DO Work Phone: comment on above:Glaucoma suspect of both eyes (Primary Dx); Age-related nuclear cataract of both eyes; Dry eyes; Blepharitis of upper and lower eyelids of both eyes, unspecified typeStart: 37-86-3695AQV screeningDR RUBEN BALLComment on above:Performed By: #### PSASC #### [facility] [address] [place] [address] Dr. Jordan HightowernoscopyKDEUCE [facility] Extraction of cataractKDEUCE [facility] History of hernia repairKCouchy.comNAWAF [facility] Screening for malignant neoplasm of colonBenjames Shea Other TonsillectomyJAYASHREE [employer]IR[employer]ILDN[employer] Plan of Treatment DateCare ActivityDetailAuthorStart: 03-18-2026 End: 14-61-8181Yrfigbq encounter ledytqzvz83/17/2026 8:35 AM EDT Office Visit [facility] [address] [place] [address] Abby De Souza MD [address] [place] [address] [facility]atologyStart: 05-06-2025 End: 29-16-3940Irzwrth encounter procedureNOMS OPHTStart: 04-07-2025 End: 04-43-5791Hrumsao encounter vwaetnzin30/07/2025 8:30 AM EDT Office Visit [facility] [address] [place] [address] Abby De Souza MD [address] [place] [address] [facility] SWS DERMStart: 03-19-2025 End: 60-36-3286Sibgxja encounter dxmoqflae50/18/2025 8:50 AM EDT Office Visit [facility] [place] [facility] [address] [place] [address] Abby De Souza MD [address] [place], [place] [id number] ArrivedNOMS [place] DermatologyComment on above:ArrivedStart: 16-88-7821Uwcbqlmvb vaccinationInfluenza Vaccine (#1)[facility] HealthcareStart: 10-28-2024 End: 19-01-1569Mgyxnbv encounter procedureNOMS NB OPHTComment on above:Arrived Start: 07-09-2024 End: 22-87-2297Xudtmwo encounter syffcdgss07/08/2025 1:45 PM EST Office Visit [facility] AUD [address] [place] [address] CEMY CI AUDStart: 06-18-2024 End: 86-08-4985Vnbadxdo SupportNOMS CI AUDComment on above:ArrivedStart: 20-78-7385FzbherpljSCCI Hospital Limatart: 04-23-2024 End: 92-61-2430Vlixwgb encounter procedureNOMS NB OPHTComment on above:Arrived Start: 04-21-2024 End: 94-66-7295Jzpslhl encounter xuxhnsmoe05/21/2024 8:30 AM EDT Office Visit [facility] [address] [place] [address] Abby De Souza MD [address] [place], [place] [id number] ArrivedNOMS SWS DERMComment on above:ArrivedStart: 07-45-9623Namyoie referralGrand Lake [facility] Work Phone: Start: 44-04-0562Bnpbxalqe vaccinationInfluenza Vaccine (#1)[facility] HealthcareStart: 48-30-9915Razpaevxo for malignant neoplasm of colonNOTN HealthcareComprehensive metabolic 1999 panel - Serum or Plasma [facility] HospitalComprehensive metabolic 1999 panel - Serum or PlasmaPromedica Bay Park HospitalPatient EducationColon polyps Diverticulosis (DC) Colon Polypectomy (DC) Know your [facility] Work Phone: Patient referralGrand Lake Joint Township District [facility] Work Phone: [facility] Immunizations Immunization DateImmunizationNotesCare AhfkekjcHakfasur39-21-6012hhcgmsynd, unspecified formulationKWABENA NKANSAH-AMANKRA [facility] 145781-05-2024SARS-CoV-2 (COVID-19) mRNA-1273 vaccineKWABENA NKANSAH-AMANKRA [facility] [place] 145780-28-2024COVID-19 (MODERNA) 12Y and olderBenjamin Ball DO Work Phone: [facility]10-28-2024influenza virus vaccine, unspecified formulationKWABENA NKANSAH-AMANKRA [facility] 145780-28-2024Seasonal trivalent influenza vaccine, adjuvanted, preservative freeBenjamin Ball DO Work Phone: [facility]11-30-2023COVID-19 (MODERNA) 12Y and olderBenjamin Ball DO Work Phone: [facility]10-16-2023Influenza vaccine, quadrivalent, adjuvantedBenjamin Ball DO Work Phone: [facility]10-16-2023RSV, preF3, adj, pfBenjamin Ball DO Work Phone: [facility]10-16-2023influenza virus vaccine, unspecified formulationAbby De Souza MD Work Phone: [facility] [place] 145780-07-2022SARS-CoV-2 (COVID-19) mRNAMUL.ORD![id number] NKJENNIFERGUS-StudyMaxANKRA [facility] 145780-03-2022Fluzone QIV High-Dose 65YR+Ruben Shea DO Work Phone: [facility]10-03-2022influenza virus vaccine, split virus (incl. purified surface antigen)Ruben Shea Other [employer] Other [id number] virus vaccine, unspecified formulationPromedica Bay Park Hospital04-19-2022COVID-19 Comirnaty (Pfizer) Tri-Sucrose 12+Ruben Shea DO Work Phone: [facility]04-19-2022SARS-CoV-2 mRNA (hhowgtswjng-wbkx-igazsny) vaccineKWABENA NKANSAH-AMANKRA [facility]10-04-2021COVID-19 Vaccine Pfizer - Documentation Purposes OnlyBenjames Shea Other [facility]09-08-2021Influenza vaccine, quadrivalent, adjuvantedBenjamin Ball DO Work Phone: [facility]09-08-2021influenza virus vaccine, split virus (incl. purified surface antigen)Ruben Shea Other [employer] Other [id number] virus vaccine, unspecified formulationPromedica Bay Park Hospital02-23-2021COVID-19 Vaccine Pfizer - Documentation Purposes OnlyBenjalucho Shea Other [facility] HospitalComment on above: Result Comment: 2024-06-06: [id number] Vaccine Pfizer - Documentation Purposes OnlyBenjalucho Shea Other [facility] HospitalComment on above: Result Comment: 2024-06-06: [id number] virus vaccine, split virus (incl. purified surface antigen)Ruben Shea Other [employer] Other [id number] virus vaccine, unspecified formulationPromedica Bay Park Hospital09-21-2020influenza, injectable, quadrivalent, preservative freeBenjamin Ball DO Work Phone: [facility]10-21-2019influenza virus vaccine, unspecified formulationKWABENA NKANSAH-AMANKRA [facility] [place] [id number], injectable, Madin Hortense Canine Kidney, preservative free, quadrivalentBenjamin Ball DO Work Phone: [facility]10-21-2019 pneumococcal polysaccharide vaccine, 23 valentKWABENA NKANSAH-AMANKRA [facility]10-04-2018influenza virus vaccine, split virus (incl. purified surface antigen)Ruben Shea Other [employer] Other [id number] virus vaccine, unspecified formulationPromedica Bay Park Hospital10-04-2018Seasonal trivalent influenza vaccine, adjuvanted, preservative freeBenjamin Ball DO Work Phone: [facility]10-26-2017influenza virus vaccine, split virus (incl. purified surface antigen)Ruben Shea Other [place] [employer] Other [id number] virus vaccine, unspecified formulationProm[facility]10-26-2017pneumococcal conjugate vaccine, 13 valentBenjamin Ball Other [facility]10-26-2017Seasonal trivalent influenza vaccine, adjuvanted, preservative freeBenjamin Ball DO Work Phone: [facility]11-15-2016 pneumococcal conjugate vaccine, 13 valentBenjamin Ball Other [facility]11-18-2015zoster vaccine, liveKWABENA NKANSAH-AMANKRA [facility]10-14-2015influenza virus vaccine, unspecified formulationKWABENA NKANSAH-AMANKRA [facility] [place] 145780-14-2015influenza, injectable, quadrivalent, preservative freeBenjamin Ball DO Work Phone: [facility]10-16-2013tetanus and diphtheria toxoids, adsorbed, preservative free, for adult use (5 Lf of tetanus toxoid and 2 Lf of diphtheria toxoid)Ruben Shea Other [facility] Hospitalinfluenza vaccine A&B sa adj quad (Fluad Quadrivalent) Jeancarlos De Souza MD Work Phone: [facility] Healthcare Payers DatePayer CategoryPayerPolicy [id number] Health [id number] [id number] 1962Medicare [id number] 2.16840.1.567503.3.57[id number] 2.0.1.647616.3.57[id number] 2.840.1.083280.3.57[id number] 2.840.1.393605.3.57[id number] 2.840.1.664431.3.57[id number] 2.840.1.903405.3.57[id number] 2.16840.1.751203.3.57[id number] 2.16840.1.957600.3.57[id number] 2.16840.1.304175.3.57[id number] 2.16840.1.716303.3.57[id number] 2.16.840.1.938161.3.57[id number] 2.16.840.1.356429.3.57[id number] 2..840.1.228029.3.57[id number] 2..840.1.676503.3.57[id number] 2..840.1.946134.3.57[id number] 2.16.840.1.11[id number] 2.840.1.870875.3.579.2.531 [id number] 2.0.1.854027.3.579.2.531 Social History DateTypeDetailFacilityUnknown if ever smokedNort [employer] Other Start: 10-23-2023 End: 14-09-2588Mme Assigned At [facility]art: 97-40-4946Rgjsqkh smoking status NHISNever smoked tobacco (finding)[facility] CenterStart: 12-36-4035Noh Assigned At [facility] CenterStart: 06-21-2023 End: 40-76-4259Viwdbdw smoking status NHISEx-smokerNOMS HealthcareHistory of tobacco useCurrent smokerNOMS HealthcareHistory of tobacco useCigarette Smoker [facility] HealthcareHistory of tobacco usePassive smokerNOMS HealthcareStart: 00-86-8026Gbonjdr use and exposureSmokeless tobacco non-userNOMS Healthcare Start: 10-23-2023 End: 40-92-6099Suizhxnvw beverage intakeCurrent drinker of alcohol (finding)[facility] HealthcareStart: 10-23-2023 End: 33-00-2501Byxecuw of Social functionSullivan County Memorial HospitalStart: 12-83-4953Idrcjyf Commentcaffeine 2-3 cups/daySullivan County Memorial HospitalStart: 10-22-9704Kbu assigned at birthNot on fileSullivan County Memorial HospitalStart: 05-21-2024 End: 73-82-9949WccPwuc (finding)[facility] HospitalTobacco smoking statusNeverExecutive [facility] of [facility] Centerexual OrientationExec[facility] Goals DatePatient GoalDesired Activity/State Functional Status QrbmTjxnarwlscFzyfpzXakncmwl52-31-7891Qzqhjorste StatusN/AExec[facility] of [facility]01-02-2025Functional StatusNoSelect [facility]12-06-2024Functional StatusN/AExec[facility] of [place] 145780-29-2024Functional StatusN/AExec[facility] Clinical Notes 03-08-2023 to 03-19-2025 Note Date & LldeDwnhFuxylhif73-46-5422 History of Present illness Narrative* Abby De Souza MD - 03/19/2025 8:50 AM EDT Skin Check Location: Patient requests a skin examination from the waist up, A full body skin exam was offered,patient declined Dermatologic history: history of Actinic Keratosis, history of atypical mole(s) Last visit: 1 year ago Established patient Lesions: Location: face, neck Duration: months. Associated symptoms: rough, scaly Treatments: none All pertinent medical history, medications, and allergies [...] Hands Examined Digits,nails: Examined Lymphatics: Not examined Skin Exam 1. ANGIOMA OF SKIN (2) Scalp, Torso - Posterior (Back) Scattered cox-red papule(s). The patient was informed that angiomas are benign growths on the the skin. No treatment is necessary. 2. LENTIGINES Head - Anterior (Face) Scattered bell macules in sun-exposed areas. The patient was informed that lentigines are benign pigmented lesions that occur on sun-exposed andsun-damaged skin. No treatment is necessary. Recommended regular use of broad spectrum sunscreen SPF 30 or higher 3. SEBORRHEIC KERATOSIS Torso - Posterior (Back) Stuck on verrucous, bell-brown papules and plaques. Patient was counseled regarding these benign growths. Removal is normally not necessary, but they may be removed if they are symptomatic or for cosmetic reasons. 4. SKIN TAG (2) Left Supraorbital Region, Neck - Anterior Fleshy, skin-colored sessile and pedunculated papules. The patient was informed that skin tags are benign growths usually found around the neck or in the axillae. No treatment is necessary, but at times they can get caught on jewelry or clothing or become inflamed. Skin tags can be removed with scissors or liquid nitrogen. 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 Split-night polysomnography on 06/30/2019 at [facility] demonstrated AHI of 54 events/hour and a jerardo SaO2=86% consistent with Obstructive Sleep Apnea. Following the treatment portion of the split-night study, the patient was set up on CPAP therapy with the PAP set at a final pressure setting of 15 cm H2O. The patient previously saw Dr. Leon for his HARPER. Dr. Leon retired, and the patient presents to [facility] to establish care. At follow-up visit on 2022, the CPAP setting was increased from 15 cm H2O to 17 cm H2O. At follow-up visit on 11/09/2023, the CPAP setting was then decreased from 17 cm H2O to 16 cm H2O because of central events noticed on the download. History of Present Illness: The patient reports no change in his sleep quality. He has no issues with CPAP therapy. He needs new supplies. His notices that he snores if his mask is off. Patient's Sleep Schedule: Usual bedtime: 9 PM Sleep routine and medications around bedtime: The patient watches TV. He does not take any medications. Sleep latency: 15-20 minutes Number and timing of awakenings: 0 Usual wake time: 3-4 a.m. The patient wakes up on his own. He feels okay upon awakening. He denies morning headaches or dry cough. Because of early wake time, the patient gets tired at 12-2 p.m. He very seldom takes naps. If he sits around, he falls asleep for 15-20 minutes, then I'm good. If he keeps going, I'm good. The patient can get tired while driving a car, but he can stay awake if he is on his motorcycle. He has not been involved in accidents. He does not fall asleep during conversations or at inappropriate places. He drinks 3-4 cups of coffee in the morning but not throughout the day. He does not take any stimulant medications. [place] Sleepiness Scale: Current total score: 1224, Previous total score: 24, and Baseline total score: 24 Quality of Life: Functional Outcomes of Sleep Questionnaire Some people have difficulty performing everyday activities when they feel tired or sleepy. The purpose of this questionnaire is to find out if you generally have difficulty carrying out certain activities because you are too sleepy or tired. In this questionnaire, when the words ???sleepy??? or ???tired??? are used, it means the feeling that you can't keep your eyes open, your head is droopy, that you want to ???nod off???, or that you feel the urge to take a nap. These words do not refer to the tired or fatigued feeling you may have after you have exercised. 1) Do you have difficulty concentrating on the things you do because you are sleepy or tired? 4. No difficulties 2) Do you generally have difficulty remembering things, because you are sleepy or tired? 4. No difficulties 3) Do you have difficulty operating a motor vehicle for SHORT distances (less than 100 miles0 because you become sleepy or tired? 4. No difficulties 4) Do you have difficulty operating a motor vehicle for LONG distances (greater than 100 miles) because you become sleepy or tired? 4. No difficulties 5) Do you have difficulty visiting with your family or friends in THEIR homes because you are sleepy or tired? 4. No difficulties 6) Has your relationship with your family, friends, or work colleagues been affected because you are sleepy or tired? 4. No 7) Do you have difficulty watching a movie or videotape because you become sleepy or tired? 4. No difficulties 8) Do you have difficulty being as active as you want to be in the EVENING because you are too sleepy or tired? 4. No difficulties 9) Do you have difficulty being as active as you want to be in the MORNING because you are too sleepy or tired? 4. No difficulties 10) Has your desire for intimacy or sex been affected because you are sleepy or tired? 4. No TOTAL 40 FOSQ-10??? 2004, Maida Chisholm FOSQ-10 - [facility]/[place] FOSQ-[id number].docx PAP Data Downloaded from Patient's PAP Device (if applicable): Settings: Mode: CPAP Mode Settings: CPAP=16 cm H2O and EPR/C-Flex/Bi-Flex=3 Compliance data: 83 total days use in the last 90 days, Over the last 14 days, average daily usage was 7 hrs 5 min 0 sec, and % Days with Usage >= 4 Hours: 93 Leak data: Median (L/min): 5.7 and 95th percentile: (L/min): 18.4 Therapy data: AHI (events/hour): 4.5, Accessioner (more content not included)... [facility]04-29-2025 History of Present illness Narrative* Mago Travis, - 10/28/2024 8:30 AM EDT Images from the original note were not included. Assessment/Plan Diagnoses and all orders for this visit: Glaucoma suspect of both eyes - Glaucoma suspect OU - Continue observation, following the findings of IOP, C/D ratio, HVF and OCTONH. Encouraged patient compliance. Age-related nuclear cataract of [...] lid scrubs were recommended. documented in this encounterSullivan County Memorial HospitalGpqnuttdbe43-81-3603 Hospital Discharge instructions Patient Education 08/25/2024 08:08:23 Benign Prostatic Hyperplasia Benign Prostatic Hyperplasia Benign prostatic hyperplasia (BPH) is an enlarged prostate gland that is caused by the normal agingprocess. The prostate may get bigger as a man gets older. The condition is not caused by cancer. The prostate is a walnut-sized gland that is involved in the production of semen. It is located in front of the rectum and below the bladder. The bladder stores urine. The urethra carries stored urine ou t of the body. An enlarged prostate can press on the urethra. This can make it harder to pass urine. The buildup of urine in the bladder can cause infection. Back pressure and infection may progress to bladder damage and kidney (renal) failure. What are the causes? This condition is part of the normal aging process. However, not all men develop problems from thiscondition. If the prostate enlarges away from the urethra, urine flow will not be blocked. If it enlarges toward the urethra and compresses it, there will be problems passing urine. What increases the risk? This condition is more likely to develop in men older than 50 years. What are the signs or symptoms? Symptoms of this condition include: Getting up often during the night to urinate. Needing to urinate frequently during the day. Difficulty starting urine flow. Decrease in size and strength of your urine stream. Leaking (dribbling) after urinating. Inability to pass urine. This needs immediate treatment. Inability to completely empty your bladder. Pain when you pass urine. This is more common if there is also an infection. Urinary tract infection (UTI). How is this diagnosed? This condition is diagnosed based on your medical history, a physical exam, and your symptoms. Tests will also be done, such as: A post-void bladder scan. This measures any amount of urine that may remain in your bladder after you finish urinating. A digital rectal exam. In a rectal exam, your health care provider checks your prostate by putting a lubricated, gloved finger into your rectum to feel the back of your prostate gland. This exam detects the size of your gland and any abnormal lumps or growths. An exam of your urine (urinalysis). A prostate specific antigen (PSA) screening. This is a blood test used to screen for prostate cancer. An ultrasound. This test uses sound waves to electronically produce a picture of your prostate gland. Your health care provider may refer you to a specialist in kidney and prostate diseases (urologist). How is this treated? Once symptoms begin, your health care provider will monitor your condition (active surveillance or watchful waiting). Treatment for this condition will depend on the severity of your condition. Treatment may include: Observation and yearly exams. This may be the only treatment needed if your condition and symptoms are mild. Medicines to relieve your symptoms, including: ?Medicines to shrink the prostate. ?Medicines to relax the muscle of the prostate. Surgery in severe cases. Surgery may include: ?Prostatectomy. In this procedure, the prostate tissue is removed completely through an open incision or with a laparoscope or robotics. ?Transurethral resection of the prostate (TURP). In this procedure, a tool is inserted through the opening at the tip of the penis (urethra). It is used to cut away tissue of the inner core of the prostate. The pieces are removed through the same opening of the penis. This removes the blockage. ?Transurethral incision (TUIP). In this procedure, small cuts are made in the prostate. This lessens the prostate's pressure on the urethra. ?Transurethral microwave thermotherapy (TUMT). This procedure uses microwaves to create heat. The heat destroys and removes a small amount of prostate tissue. ?Transurethral needle ablation (TUNA). This procedure uses radio frequencies to destroy and remove a small amount of prostate tissue. ?Interstitial laser coagulation (ILC). This procedure uses a laser to destroy and remove a small amount of prostate tissue. ?Transurethral electrovaporization (TUVP). This procedure uses electrodes to destroy and remove a small amount of prostate tissue. ?Prostatic urethral lift. This procedure inserts an implant to push the lobes of the prostate away from the urethra. Follow these instructions at home: Take dchg-wie-enieega and prescription medicines only as told by your health care provider. Monitor your symptoms for any changes. Contact your health care provider with any changes. Avoid drinking large amounts of liquid before going to bed or out in public. Avoid or reduce how much caffeine or alcohol you drink. Give yourself time when you urinate. Keep all follow-up visits. This is important. Contact a health care provider if: You have unexplained back pain. Your symptoms do not get better with treatment. You develop side effects from the medicine you are taking. Your urine becomes very dark or has a bad smell. Your lower abdomen becomes distended and you have trouble passing urine. Get help right away if: You have a fever or chills. You suddenly cannot urinate. You feel light-headed or very dizzy, or you faint. There are large amounts of blood or clots in your urine. Your urinary problems become hard to manage. You develop moderate to severe low back or flank pain. The flank is the side of your body between the ribs and the hip. These symptoms may be an emergency. Get help right away. Call 911. Do not wait to see if the symptoms will go away. Do not drive yourself to the hospital. Summary Benign prostatic hyperplasia (BPH) is an enlarged prostate that is caused by the normal aging process. It is not caused by cancer. An enlarged prostate can press on the urethra. This can make it hard to pass urine. This condition is more likely to develop in men older than 50 years. Get help right away if you suddenly cannot urinate. This information is not intended to replace advice given to you by your health care provider. Make sure you discuss any questions you have with your health care provider. Document Revised: 01/04/2022 Document Reviewed: 01/04/2022 [employer] Patient Education 2023 [employer]. Follow Up Care 07/11/2024 13:35:46 With:JAYASHREE JIN MD, URL Address: When: Unknown [facility] 02-24-2025 NotePatient Education Urology Benign Prostatic Hyperplasia Benign prostatic hyperplasia (BPH) is an enlarged prostate gland that is caused by the normal agingprocess. The prostate may get bigger as a man gets older. The condition is not caused by cancer. The prostate is a walnut-sized gland that is involved in the production of semen. It is located in front of the rectum and below the bladder. The bladder stores urine. The urethra carries stored urine ou t of the body. An enlarged prostate can press on the urethra. This can make it harder to pass urine. The buildup of urine in the bladder can cause infection. Back pressure and infection may progress to bladder damage and kidney (renal) failure. What are the causes? This condition is part of the normal aging process. However, not all men develop problems from thiscondition. If the prostate enlarges away from the urethra, urine flow will not be blocked. If it enlarges toward the urethra and compresses it, there will be problems passing urine. What increases the risk? This condition is more likely to develop in men older than 50 years. What are the signs or symptoms? Symptoms of this condition include: ??? Getting up often during the night to urinate. ??? Needing to urinate frequently during the day. ??? Difficulty starting urine flow. ??? Decrease in size and strength of your urine stream. ??? Leaking (dribbling) after urinating. ??? Inability to pass urine. This needs immediate treatment. ??? Inability to completely empty your bladder. ??? Pain when you pass urine. This is more common if there is also an infection. ??? Urinary tract infection (UTI). How is this diagnosed? This condition is diagnosed based on your medical history, a physical exam, and your symptoms. Tests will also be done, such as: ??? A post-void bladder scan. This measures any amount of urine that may remain in your bladder after you finish urinating. ??? A digital rectal exam. In a rectal exam, your health care provider checks your prostate by putting a lubricated, gloved finger into your rectum to feel the back of your prostate gland. This exam detects the size of your gland and any abnormal lumps or growths. ??? An exam of your urine (urinalysis). ??? A prostate specific antigen (PSA) screening. This is a blood test used to screen for prostate cancer. ??? An ultrasound. This test uses sound waves to electronically produce a picture of your prostate gland. Your health care provider may refer you to a specialist in kidney and prostate diseases (urologist). How is this treated? Once symptoms begin, your health care provider will monitor your condition (active surveillance or watchful waiting). Treatment for this condition will depend on the severity of your condition. Treatment may include: ??? Observation and yearly exams. This may be the only treatment needed if your condition and symptoms are mild. ??? Medicines to relieve your symptoms, including: ? Medicines to shrink the prostate. ? Medicines to relax the muscle of the prostate. ??? Surgery in severe cases. Surgery may include: ? Prostatectomy. In this procedure, the prostate tissue is removed completely through an open incision or with a laparoscope or robotics. ? Transurethral resection of the prostate (TURP). In this procedure, a tool is inserted through theopening at the tip of the penis (urethra). It is used to cut away tissue of the inner core of the prostate. The pieces are removed through the same opening of the penis. This removes the blockage. ? Transurethral incision (TUIP). In this procedure, small cuts are made in the prostate. This lessens the prostate's pressure on the urethra. ? Transurethral microwave thermotherapy (TUMT). This procedure uses microwaves to create heat. The heat destroys and removes a small amount of prostate tissue. ? Transurethral needle ablation (TUNA). This procedure uses radio frequencies to destroy and removea small amount of prostate tissue. ? Interstitial laser coagulation (ILC). This procedure uses a laser to destroy and remove a small amount of prostate tissue. ? Transurethral electrovaporization (TUVP). This procedure uses electrodes to destroy and remove a small amount of prostate tissue. ? Prostatic urethral lift. This procedure inserts an implant to push the lobes of the prostate awayfrom the urethra. Follow these instructions at home: ??? Take bplz-bsd-gykibhy and prescription medicines only as told by your health care provider. ??? Monitor your symptoms for any changes. Contact your health care provider with any changes. ??? Avoid drinking large amounts of liquid before going to bed or out in public. ??? Avoid or reduce how much caffeine or alcohol you drink. ??? Give yourself time when you urinate. ??? Keep all follow-up visits. This is important. Contact a health care provider if: ??? You have unexplained back pain. ??? Your symptoms do not get (more content not included)...[facility]01-27-2025 Telephone encounter Note* Telephone Encounter - ALONSO George - 07/28/2024 5:22 PM EST Called pt - problem with wire. Called pt and wire fell off of hearing aid when he was cleaning it. He did end up finding wire and reattached it to the hearing aid. Told pt we must not have secured the wire properly after the repair and apologized. His aid is working fine now and he does not need a new wire. [facility] Work Phone: [phone] 375-205701-27-2025 Miscellaneous Notes* Telephone Encounter - ALONSO George - 07/28/2024 5:22 PM EST Called pt - problem with wire. Called pt and wire fell off of hearing aid when he was cleaning it. He did end up finding wire and reattached it to the hearing aid. Told pt we must not have secured the wire properly after the repair and apologized. His aid is working fine now and he does not need a new wire. documented in this encounterSullivan County Memorial HospitalIaceahxfrv94-60-4611 NoteProgress Note-Physician Assessment/Plan 1. Benign prostatic hyperplasia (BPH) with post-void dribbling (N40.1: Benign prostatic hyperplasiawith lower urinary tract symptoms) 07/10 S/p cystoscopy, TURP, BPH with LUTS w/ findings of bilobular hyperplasia of the prostate resected to create an open channel -Trend labs -Pain mgt. -Education: Oral pain med regimen, I.S. and bowel regimen to avoid constipation -Thank you for the opportunity to assist in the mgt. of your patient Ordered: Initial IP Consult New/Estab Pt Moderate 60 Min 43964 2. S/P TURP (Z90.79: Acquired absence of other genital organ(s)) See above 3. Hypercholesterolemia (E78.00: Pure hypercholesterolemia, unspecified) -Atorvastatin 4. GERD (gastroesophageal reflux disease) (K21.9: Gastro-esophageal reflux disease without esophagitis) -PPI 5. Obesity (E66.9: Obesity, unspecified) BMI - awaiting ht/wt. -Educated on need for lifestyle modifications with goal of weight loss as obesity causes a pro- inflamm state resulting in a negative impact on co-morbid conditions. 6. On deep vein thrombosis (DVT) prophylaxis (Z79.899: Other detention (current) drug therapy) Defer to urology, SCDs, luma lira, early ambulation Orders: atorvastatin, 10 mg = 0.5 tab(s), Tab, Oral, Every other day, Routine, Start date 07/11/24 10:00:00EST, 07/11/24 9:24:00 EST pantoprazole, 40 mg = 1 tab(s), Tab-DR, Oral, Daily, NOW, Start date 07/10/24 18:17:00 EST, 07/10/24 18:17:00 EST tamsulosin, 0.4 mg = 1 cap(s), Cap, Oral, Daily, NOW, Start date 07/11/24 9:24:00 EST, 07/11/24 9:24:00 EST Basic Metabolic Panel CBC w/ Auto Diff Communication Order Physician to Nursing eGFR -Plan discussed w/ patient, nursing staff and CRM. -Disposition: Pt. is hemodynamically stable for discharge from medical standpoint, defer resuming blood thinning medications and antibiotic management to urology. Will sign off, please call w/ any questions/concerns This report was transcribed using voice recognition software. Every effort was made to ensure accuracy, however, inadvertently computerized indigo mixer mistakes may be present. Subjective No acute events overnight. Patient up ambulating in room, states he feels very well, tee cath out. He denies CP, pressure, palpitations, N/V, SOB or paresthesia. Review of Systems Constitutional: Negative Respiratory: Negative Cardiovascular: Negative. Gastrointestinal: Denies abd pain. Passing flatus. Last BM: 07/10 Genitourinary: + blood in urine Additional ROS info: Except as noted in the above Review of Systems and in the History of Present Illness all other systems have been reviewed and are negative or noncontributory Objective Vitals & Measurements T: 36.6 ???C(Oral) TMIN: 36.4 ???C(Oral) TMAX: 36.7 ???C(Axillary) HR: 65(Monitored) RR: 18 BP: 157/74 SpO2: 96% Intake & Output This visit (24 hour periods starting at 07:00 EST) 07/11/24 * 07/10/24 07/09/24 Total Summary Intake mL -- 741.8 54 Output mL 200 4,167 -- Fluid Balance -200 -3,425.2 54 Intake (11) Lactated Ringers Injection mL -- 600 -- Sodium Chloride 0.9% mL -- -- 50 Sodium Chloride 0.9%, cefazolin mL -- 100 -- dexamethasone mL -- 1 -- famotidine mL -- -- 2 fentanyl mL -- 4 -- hydromorphone mL -- 0.8 -- lidocaine mL -- 3 -- metoclopramide mL -- -- 2 ondansetron mL -- 2 -- propofol mL -- 31 -- Total -- 741.8 54 Output (3) EBL Surgery mL -- 2 -- Urine Catheter mL -- 2,500 -- Urine Voided mL 200 1,665 -- Total 200 4,167 -- Counts (0) * This column has not completed the indicated time period. Physical Exam General: Calm, able to communicate needs, NAD Head: Normocephalic/atraumatic Eyes: Pupils equal, round, Conjunctivae and sclerae normal, HEENT: Mucous membrane moist.Tongue normal Neck: Trachea midline, neck supple, Chest: No chest wall deformity, no chest wall tenderness Lungs: CTA guevara, no cough/wheezing Cardio: Normal rate, apical is regular, no edema. Pulses: Normal capillary refill Abdomen: Soft, non-distended, non-tender, normal BS : Tee out this a.m. per urology, 1 void completed, awaiting 2nd for possible d/c today Musculoskeletal: No deformity or scoliosis noted. Normal ROM for age. Integumentary: Warm, dry, Extremity: No clubbing, Neurologic: Alert, oriented x 4, follows commands, Mental status: Pleasant & cooperative, approp. affect, Lab Results WBC: 15.4 E9/L High (07/11/24 06:04:00) RBC: 4.2 E12/L Low (07/11/24 06:04:00) HGB: 13.8 gm/dL (07/11/24 06:04:00) Hct: 38.7 % (07/11/24 06:04:00) MCV: 91.7 fL (07/11/24 06:04:00) MCH: 32.6 pg (07/11/24 06:04:00) MCHC: 35.6 gm/dL (07/11/24 06:04:00) RDW: 12.9 % (07/11/24 06:04:00) Platelet: 203 E9/L (07/11/24 06:04:00) MPV: 9.1 fL (07/11/24 06:04:00) Neutro Auto: 80.9 % High (07/11/24 06:04:00) (more content not included)... [facility]:Result Comment: Electronically Signed By: Karen BONDS\.br\Date and Time Signed: 07/11/24 09:38 EST\.br\Electronically Co-Signed By: Kendrick Cheema III, DO\.br\Date and Time Co-Signed: 07/12/24 12:11 [id number] Hospital Discharge instructions Patient Education 07/11/2024 13:32:18 Transurethral Resection of the Prostate, Care After Transurethral Resection of the Prostate, Care After The following information offers guidance on how to care for yourself after your procedure. Your health care provider may also give you more specific instructions. If you have problems or questions, contact your health care provider. What can I expect after the procedure? After the procedure, it is common to have: Mild pain in your lower abdomen. Soreness or mild discomfort in your penis or when you urinate. This is from having the catheter inserted during the procedure. A sudden urge to urinate (urgency). A need to urinate often. A small amount of blood in your urine. You may notice some small blood clots in your urine. These are normal. Follow these instructions at home: Medicines Take qjcs-nfd-llvztoc and prescription medicines only as told by your health care provider. If you were prescribed an antibiotic medicine, take it as told by your health care provider. Do notstop taking the antibiotic even if you start to feel better. Activity Rest as told by your health care provider. Avoid sitting for a long time without moving. Get up to take short walks every 1 2 hours. This is important to improve blood flow and breathing. Ask for help if you feel weak or unsteady. You may increase your physical activity gradually as you start to feel better. Do not drive or operate machinery until your health care provider says that it is safe. Do not ride in a car for long periods of time, or as told by your health care provider. Avoid intense physical activity for as long as told by your health care provider. Do not lift anything that is heavier than 10 lb (4.5 kg), or the limit that you are told, until your health care provider says that it is safe. Do not have sex until your health care provider approves. Return to your normal activities as told by your health care provider. Ask your health care provider what activities are safe for you. Preventing constipation You may need to take these actions to prevent or treat constipation: Drink enough fluid to keep your urine pale yellow. Take ejfe-prw-djqhfwy or prescription medicines. Eat foods that are high in fiber, such as beans, whole grains, and fresh fruits and vegetables. Limit foods that are high in fat and processed sugars, such as fried or sweet foods. General instructions Do not strain when you have a bowel movement. Straining may lead to bleeding from the prostate. This may cause blood clots and trouble urinating. Do not use any products that contain nicotine or tobacco. These products include cigarettes, chewing tobacco, and vaping devices, such as e-cigarettes. If you need help quitting, ask your health careprovider. If you go home with a tube draining your urine (urinary catheter), care for the catheter as told byyour health care provider. Wear compression stockings as told by your health care provider. These stockings help to prevent blood clots and reduce swelling in your legs. Keep all follow-up visits. This is important. Contact a health care provider if: You have signs of infection, such as: ?Fever or chills. ?Urine that smells very bad. ?Swelling around your urethra that is getting worse. ?Swelling in your penis or testicles. You have difficulty urinating. You have pain that gets worse or does not improve with medicine. You have blood in your urine that does not go away after 1 week of resting and drinking more fluids. You have trouble having a bowel movement. You have trouble having or keeping an erection. No semen comes out during orgasm (dry ejaculation). You have a urinary catheter in place, and you have: ?Spasms or pain. ?Problems with your catheter or your catheter is blocked. Get help right away if: You are unable to urinate. You are having more blood clots in your urine instead of fewer. You have: ?Large blood clots. ?A lot of blood in your urine. ?Pain in your back or lower abdomen. You have difficulty breathing or shortness of breath. You develop swelling or pain in your leg. These symptoms may be an emergency. Get help right away. Call 911. Do not wait to see if the symptoms will go away. Do not drive yourself to the hospital. Summary After the procedure, it is common to have a small amount of blood in your urine. Follow restrictions about lifting and sexual activity as told by your health care provider. Ask what activities are safe for you. Keep all follow-up visits. This is important. This information is not intended to replace advice given to you by your health care provider. Make sure you discuss any questions you have with your health care provider. Document Revised: 03/14/2022 Document Reviewed: 03/14/2022 [employer] Patient Education 2023 [employer] 07/11/2024 13:32:16 Transurethral Resection of the Prostate Transurethral Resection of the Prostate Transurethral resection of the prostate (TURP) is the removal, or resection, of part of the prostate tissue. This procedure is done to treat an enlarged prostate gland (benign prostatic hyperplasia). The goal of TURP is to remove enough prostate tissue to allow for a normal flow of urine. The procedure will allow you to empty your bladder more completely when you urinate so that you can urinate less often. In a transurethral resection, a thin telescope with a light, a camera, and an electric cutting edge(resectoscope) is passed through the urethra and into the prostate. The opening of the urethra is at the end of the penis. Tell a health care provider about: Any allergies you have. All medicines you are taking, including vitamins, herbs, eye drops, creams, and fslx-pto-imwlwfv medicines. Any problems you or family members have had with anesthetic medicines. Any bleeding problems you have. Any surgeries you have had. Any medical conditions you have. Any prostate infections you have had. What are the risks? Generally, this is a safe procedure. However, problems may occur, including: Infection. Bleeding. Allergic reactions to medicines. Blood in the urine (hematuria). Damage to nearby structures or organs. Other problems may occur, but they are rare. They include: Dry ejaculation, or having no semen come out during orgasm. Erectile dysfunction, or being unable to have or keep an erection. Scarring that leads to narrowing of the urethra. This narrowing may block the flow of urine. Inability to control when you urinate (incontinence). Deep vein thrombosis. This is a blood clot that can develop in your leg. TURP syndrome. This can happen when you lose too much sodium during or after the procedure. Some signs and symptoms of this condition include: ?Weakness. ?Headaches. ?Nausea or vomiting. ?Muscle cramping. What happens before the procedure? When to stop eating and drinking Follow instructions from your health care provider about what you may eat and drink before your procedure. These may include: 8 hours before your procedure ?Stop eating most foods. Do not eat meat, fried foods, or fatty foods. ?Eat only light foods, such as toast or crackers. ?All liquids are okay except energy drinks and alcohol. 6 hours before your procedure ?Stop eating. ?Drink only clear liquids, such as water, clear fruit juice, black coffee, plain tea, and sports drinks. ?Do not drink energy drinks or alcohol. 2 hours before your procedure ?Stop drinking all liquids. ?You may be allowed to take medicines with small sips of water. If you do not follow your health care provider's instructions, your procedure may be delayed or canceled. Medicines Ask your health care provider about: Changing or stopping your regular medicines. This is especially important if you are taking diabetes medicines or blood thinners. Taking medicines such as aspirin and ibuprofen. These medicines can thin your blood. Do not take these medicines unless your health care provider tells you to take them. Taking nkon-oyo-ekwhovu medicines, vitamins, herbs, and supplements. Surgery safety Ask your health care provider what steps will be taken to help prevent infection. These steps may include: Removing hair at the surgery site. Washing skin with a germ-killing soap. Taking antibiotic medicine. General instructions Do not use any products that contain nicotine or tobacco for at least 4 weeks before the procedure.These products include cigarettes, chewing tobacco, and vaping devices, such as e-cigarettes. If you need help quitting, ask your health care provider. If you will be going home right after the procedure, plan to have a responsible adult: ?Take you home from the hospital or clinic. You will not be allowed to drive. ?Care for you for the time you are told. What happens during the procedure? An IV will be inserted into one of your veins. You will be given one or more of the following: ?A medicine to help you relax (sedative). ?A medicine to make you fall asleep (general anesthetic). ?A medicine that is injected into your spine to numb the area below and slightly above the injection site (spinal anesthetic). Your legs will be placed in foot rests (stirrups) so that your legs are apart and your knees are bent. The resectoscope will be passed through your urethra to your prostate. Parts of your prostate will be resected using the cutting edge of the resectoscope. Fluid will be passed to rinse out the cut tissues (irrigation). The resectoscope will be removed. A small, thin tube (catheter) will be passed through your urethra and into your bladder. The catheter will drain urine into a bag outside of your body. The procedure may vary among health care providers and hospitals. What happens after the procedure? Your blood pressure, heart rate, breathing rate, and blood oxygen level will be monitored until youleave the hospital or clinic. You will be given fluids through the IV. The IV will be removed when you start eating and drinking normally. You may have some pain. Pain medicine will be available to help you. You will have a catheter draining your urine. ?You may have blood in your urine. Your catheter may be kept in until your urine is clear. ?Your urinary drainage will be monitored. If necessary, your bladder may be rinsed out (irrigated) through your catheter. You will be encouraged to walk around as soon as possible. You may have to wear compression stockings. These stockings help to prevent blood clots and reduce swelling in your legs. If you were given a sedative during the procedure, it can affect you for several hours. Do not drive or operate machinery until your health care provider says that it is safe. Summary Transurethral resection of the prostate (TURP) is the removal (resection) of part of the prostate tissue. The goal of this procedure is to remove enough prostate tissue to allow for a normal flow of urine. Follow instructions from your health care provider about taking medicines and about eating and drinking before the procedure. This information is not intended to replace advice given to you by your health care provider. Make sure you discuss any questions you have with your health care provider. Document Revised: 03/14/2022 Document Reviewed: 03/14/2022 [employer] Patient Education 2023 [employer]. Follow Up Care 06/06/2024 08:53:27 With:JAYASHREE JIN Address:Unknown When:08/25/2024 08:00:00 With:RUBEN SHEA Address: [address] [place] [id number] Business (1) When:07/21/2024 13:30:00 [facility] 01-10-2025 Evaluation + Plan noteExtracted from:Title: DC SummaryAuthor:RUDY CULVER, JAYASHREEDate:07/11/24 Discharge Information Discharge Plan Discharge Time Discharge time > 30 min. Discharge Summary Plan Discharge Status: improved. Discharge instructions given: to patient, to family member spouse. Discharge disposition: discharge to home self care. Prescriptions: continue same medications, reviewed with spouse. Extracted from:Title:Consult NoteAuthor:CADENCE BURKS, ReneeDate:07/10/24 Awaiting med rec for all dx. 1. Benign prostatic hyperplasia (BPH) with post-void dribbling (N40.1: Benign prostatic hyperplasiawith lower urinary tract symptoms) 07/10 S/p cystoscopy, TURP, BPH with LUTS w/ findings of bilobular hyperplasia of the prostate resected to create an open channel -Trend labs -Pain mgt. -Education: Oral pain med regimen, I.S. and bowel regimen to avoid constipation -Thank you for the opportunity to assist in the mgt. of your patient 2. S/P TURP (Z90.79: Acquired absence of other genital organ(s)) See above 3. Hypercholesterolemia (E78.00: Pure hypercholesterolemia, unspecified) 4. GERD (gastroesophageal reflux disease) (K21.9: Gastro-esophageal reflux disease without esophagitis) 5. Obesity (E66.9: Obesity, unspecified) BMI - awaiting ht/wt. -Educated on need for lifestyle modifications with goal of weight loss as obesity causes a pro- inflamm state resulting in a negative impact on co-morbid conditions. 6. On deep vein thrombosis (DVT) prophylaxis (Z79.899: Other joint terminal attack controller (current) drug therapy) Defer to urology, SCDs, luma lira, early ambulation -Plan discussed w/ patient, nursing staff and CRM. This report was transcribed using voice recognition software. Every effort was made to ensure accuracy, however, inadvertently computerized indigo mixer mistakes may be present. Extracted from:Title:[facility] Post-operative Note - GeneralAuthor:Benjy Chen Jr., DO GDate:07/10/24 Plan Transfer/Discharge: Transfer/Discharge Discharge when meets criteria ( From PACU to Ambulatory Surgery Unit, and To home ). Extracted from:Title:[facility] Pre-operative Note - AdultAuthor:Benjy Chen Jr., DO GDate:07/10/24 Plan [employer] [place] [employer] (ASA) physical status classification: Class III. Anesthetic Preoperative Plan: Anesthesia General. Future Appointments Appointment Date:08/25/2024 08:00:00 AM Scheduled Provider:JAYASHREE JIN MD Location:[facility] Appointment Type:URO Office Visit [facility] 01-10-2025 NotePatient Education - Text Urology Transurethral Resection of the Prostate, Care After The following information offers guidance on how to care for yourself after your procedure. Your health care provider may also give you more specific instructions. If you have problems or questions, contact your health care provider. What can I expect after the procedure? After the procedure, it is common to have: ??? Mild pain in your lower abdomen. ??? Soreness or mild discomfort in your penis or when you urinate. This is from having the catheterinserted during the procedure. ??? A sudden urge to urinate (urgency). ??? A need to urinate often. ??? A small amount of blood in your urine. You may notice some small blood clots in your urine. These are normal. Follow these instructions at home: Medicines ??? Take cqrk-zbw-boxspfy and prescription medicines only as told by your health care provider. ??? If you were prescribed an antibiotic medicine, take it as told by your health care provider. Donot stop taking the antibiotic even if you start to feel better. Activity ??? Rest as told by your health care provider. ??? Avoid sitting for a long time without moving. Get up to take short walks every 1?2 hours. This is important to improve blood flow and breathing. Ask for help if you feel weak or unsteady. You mayincrease your physical activity gradually as you start to feel better. ??? Do not drive or operate machinery until your health care provider says that it is safe. ??? Do not ride in a car for long periods of time, or as told by your health care provider. ??? Avoid intense physical activity for as long as told by your health care provider. ??? Do not lift anything that is heavier than 10 lb (4.5 kg), or the limit that you are told, untilyour health care provider says that it is safe. ??? Do not have sex until your health care provider approves. ??? Return to your normal activities as told by your health care provider. Ask your health care provider what activities are safe for you. Preventing constipation You may need to take these actions to prevent or treat constipation: ??? Drink enough fluid to keep your urine pale yellow. ??? Take rpdk-ths-jehsfty or prescription medicines. ??? Eat foods that are high in fiber, such as beans, whole grains, and fresh fruits and vegetables. ??? Limit foods that are high in fat and processed sugars, such as fried or sweet foods. General instructions ??? Do not strain when you have a bowel movement. Straining may lead to bleeding from the prostate.This may cause blood clots and trouble urinating. ??? Do not use any products that contain nicotine or tobacco. These products include cigarettes, chewing tobacco, and vaping devices, such as e-cigarettes. If you need help quitting, ask your health care provider. ??? If you go home with a tube draining your urine (urinary catheter), care for the catheter as told by your health care provider. ??? Wear compression stockings as told by your health care provider. These stockings help to prevent blood clots and reduce swelling in your legs. ??? Keep all follow-up visits. This is important. Contact a health care provider if: ??? You have signs of infection, such as: ? Fever or chills. ? Urine that smells very bad. ? Swelling around your urethra that is getting worse. ? Swelling in your penis or testicles. ??? You have difficulty urinating. ??? You have pain that gets worse or does not improve with medicine. ??? You have blood in your urine that does not go away after 1 week of resting and drinking more fluids. ??? You have trouble having a bowel movement. ??? You have trouble having or keeping an erection. ??? No semen comes out during orgasm (dry ejaculation). ??? You have a urinary catheter in place, and you have: ? Spasms or pain. ? Problems with your catheter or your catheter is blocked. Get help right away if: ??? You are unable to urinate. ??? You are having more blood clots in your urine instead of fewer. ??? You have: ? Large blood clots. ? A lot of blood in your urine. ? Pain in your back or lower abdomen. ??? You have difficulty breathing or shortness of breath. ??? You develop swelling or pain in your leg. These symptoms may be an emergency. Get help right away. Call 911. ??? Do not wait to see if the symptoms will go away. ??? Do not drive yourself to the hospital. Summary ??? After the procedure, it is common to have a small amount of blood in your urine. ??? Follow restrictions about lifting and sexual activity as told by your health care provider. Askwhat activities are safe for you. ??? Keep all follow-up visits. This is important. This information is not intended to replace advice given to you by your health care provider. Make sure you discuss any questions you have with your health care provider. Document Revised: 03/14 (more content not included)...[facility] NoteDischarge Summary Patient: EARL JIMÉNEZ Age: 73 years Sex: Male : 1950 Associated Diagnoses: None Author: JAYASHREE JIN MD Physical Examination General: Alert and oriented x 3, NAD Cardiovascular: Regular rate and rhythm Lungs: Nonlabored breathing on room air Abdomen: Soft, nontender, nondistended with no guarding rigidity noted Extremities: No peripheral edema noted : No suprapubic or flank tenderness noted on palpation Skin: Warm and dry Hospital Course Patient is a 73-year-old male with BPH with LUTS who presented for a transurethral resection of theprostate on 07/10/2024. He did well. In the postoperative period, he tolerated diet advancement with no issues and on postoperative day 1 his Tee catheter was removed without incident. He voided multiple times with low PVRs. Patient was subsequently deemed appropriate for home to discharge. He was counseled on hydrating vigorously, not lifting greater than 10 pounds for the next 4 to 6 weeks, pain control with Tylenol, follow-up in 6 weeks. Resume blood thinners and 7 days. Discharge Plan Discharge Time Discharge time > 30 min. Discharge Summary Plan Discharge Status: improved. Discharge instructions given: to patient, to family member spouse. Discharge disposition: discharge to home self care. Prescriptions: continue same medications, reviewed with spouse.[facility] ShawComment on above:Result Comment: Electronically Signed By: JAYASHREE JIN MD\.br\Date and Time Signed: 07/11/24 12:15 EST 07-10-2024 NoteConsultation Note Chief Complaint BPH w/ LUTS Reason for Consultation Medical mgt. History of Present Illness 73-year-old male with PMH of HLD, GERD, BPH, obesity. -Patient [place] [facility] [place] the care of Dr. Jin (urology) and underwent cystoscopy, TURP on 07/10/2024 with request for sensation to hospitalist team for medical management. Review of Systems Constitutional: Negative Respiratory: Negative Cardiovascular: Negative. Gastrointestinal: Denies abd pain. Passing flatus. Last BM: 07/10 Genitourinary: + blood in urine Additional ROS info: Except as noted in the above Review of Systems and in the History of Present Illness all other systems have been reviewed and are negative or noncontributory Physical Exam Vitals & Measurements T: 36.6 ???C(Axillary) TMIN: 36.4 ???C(Oral) TMAX: 36.6 ???C(Oral) HR: 64(Monitored) RR: 18 BP: 145/76 SpO2: 97% General: Calm, able to communicate needs, NAD Head: Normocephalic/atraumatic Eyes: Pupils equal, round, Conjunctivae and sclerae normal, HEENT: Mucous membrane moist.Tongue normal Neck: Trachea midline, neck supple, Chest: No chest wall deformity, no chest wall tenderness Lungs: CTA guevara, no cough/wheezing Cardio: Normal rate, apical is regular, no edema. Pulses: Normal capillary refill Abdomen: Soft, non-distended, non-tender, normal BS : + 3 way tee w/ CBI infusing at rapid rate w/ blood tinged fluid returned Musculoskeletal: No deformity or scoliosis noted. Normal ROM for age. Integumentary: Warm, dry, Extremity: No clubbing, Neurologic: Alert, oriented x 4, follows commands, Mental status: Pleasant & cooperative, approp. affect, Assessment/Plan Awaiting med rec for all dx. 1. Benign prostatic hyperplasia (BPH) with post-void dribbling (N40.1: Benign prostatic hyperplasiawith lower urinary tract symptoms) 07/10 S/p cystoscopy, TURP, BPH with LUTS w/ findings of bilobular hyperplasia of the prostate resected to create an open channel -Trend labs -Pain mgt. -Education: Oral pain med regimen, I.S. and bowel regimen to avoid constipation -Thank you for the opportunity to assist in the mgt. of your patient 2. S/P TURP (Z90.79: Acquired absence of other genital organ(s)) See above 3. Hypercholesterolemia (E78.00: Pure hypercholesterolemia, unspecified) 4. GERD (gastroesophageal reflux disease) (K21.9: Gastro-esophageal reflux disease without esophagitis) 5. Obesity (E66.9: Obesity, unspecified) BMI - awaiting ht/wt. -Educated on need for lifestyle modifications with goal of weight loss as obesity causes a pro- inflamm state resulting in a negative impact on co-morbid conditions. 6. On deep vein thrombosis (DVT) prophylaxis (Z79.899: Other joint terminal attack controller (current) drug therapy) Defer to urology, SCDs, luma lira, early ambulation -Plan discussed w/ patient, nursing staff and CRM. This report was transcribed using voice recognition software. Every effort was made to ensure accuracy, however, inadvertently computerized indigo mixer mistakes may be present. Attestation Case reviewed/discussed w/ Dr. Cheema who is in agreement with POC. Problem List/Past Medical History Ongoing Acute prostatitis Asthma BPH with urinary obstruction Erectile dysfunction GERD (gastroesophageal reflux disease) Gross hematuria Hypercholesterolemia Hypertension Hypogonadism male Incomplete bladder emptying Insomnia Lumbar spondylosis Obesity Obstructive sleep apnea Historical No qualifying data Procedure/Surgical History Flexible cystoscopy (06/06/2024), Colonoscopy, History of hernia repair, Tonsillectomy. Medications Inpatient Colace 100 mg Cap, 100 mg= 1 cap(s), Oral, BID HYDROmorphone 1 mg/mL injectable solution, 0.4 mg= 0.4 mL, IV Push, q4min, PRN Lactated Ringers IV Liv 1000 mL 1,000 mL, 1000 mL, IV Levsin 0.125 mg SL Tab, 0.125 mg= 1 tab(s), SubLingual, TID melatonin 3 mg Tab, 3 mg= 1 tab(s), Oral, Bedtime, PRN NS 1000 mL Soln-IV 1,000 mL, 1000 mL, IV oxyCODONE 5 mg Tab, 5 mg= 1 tab(s), Oral, q6hr, PRN Sodium Chloride 0.9% IV Liv 1000 mL 1,000 mL, 1000 mL, IV Tylenol 325 mg Tab, 650 mg= 2 tab(s), Oral, q6hr Zofran 4 mg/2 mL Injection, 4 mg= 2 mL, IV Push, q6hr, PRN Home Afrin Allergy Sinus, 2 spray(s), Nasal, Bedtime aspirin 81 mg oral capsule, 81 mg= 1 cap(s), Oral, Daily atorvastatin 10 mg Tab, 10 mg= 1 tab(s), Oral, Every other day calcium-vitamin D, See Instructions diclofenac-misoprostol 75 mg-200 mcg oral delayed release tablet, 1 tab(s), Oral, BID fluticasone Nasal 0.05 mg/inh Rothbury, 1 spray(s), Nasal, Daily Iron 100 Plus, 1 tab(s), Oral, Daily Pantoprazole [address] Tab, 40 mg= 1 tab(s), Oral, Daily tamsulosin 0.4 mg Cap, 0.4 mg= 1 cap(s), Oral, Daily Allergies bacitracin (Unknown) neomycin (Unknown) polymyxin B ophthalmic (Unknown) Social History Alcohol - Low Risk, 04/29/2024 Current, 1-2 times per month, 07/03/2024 Current. Beer. 1-2 time (more content not included)...[facility] ShawComment on above:Result Comment: Electronically Signed By: Karen NOLASCO\.br\Date and Time Signed: 07/10/24 18:17 EST\.br\Electronically Co- Signed By: Kendrick Cheema III, DO\.br\Date and Time Co-Signed: 07/10/24 18:33 [id number] NoteProgress Note-Physician Patient: EARL JIMÉNEZ Age: 73 years Sex: Male : 1950 Associated Diagnoses: None Author: Benjy Chen Jr., DO Postoperative Information Postoperative disposition: Postoperative disposition: Home. Optimetrix number: Optimetrix number [id number]. Anesthetic utilized: General. Physical Examination Vital Signs 07/10/2024 12:53 EST Temperature Oral 36.4 DegC Heart Rate Monitored 65 bpm Systolic Blood Pressure 156 mmHg HI Diastolic Blood Pressure 85 mmHg SpO2 97 % 07/10/2024 12:20 EST Temperature Temporal Artery 36.5 DegC Heart Rate Monitored 64 bpm Respiratory Rate Monitored 12 br/min Systolic Blood Pressure 143 mmHg HI Diastolic Blood Pressure 65 mmHg Mean Arterial Pressure, Cuff 91 mmHg SpO2 94 % 07/10/2024 12:16 EST Heart Rate Monitored 70 bpm Respiratory Rate Monitored 15 br/min Systolic Blood Pressure 176 mmHg HI Diastolic Blood Pressure 76 mmHg Mean Arterial Pressure, Cuff 109 mmHg SpO2 93 % 07/10/2024 12:10 EST Heart Rate Monitored 66 bpm Respiratory Rate Monitored 7 br/min Systolic Blood Pressure 150 mmHg HI Diastolic Blood Pressure 72 mmHg Mean Arterial Pressure, Cuff 98 mmHg SpO2 94 % 07/10/2024 12:00 EST Heart Rate Monitored 66 bpm Respiratory Rate Monitored 11 br/min Systolic Blood Pressure 142 mmHg HI Diastolic Blood Pressure 73 mmHg Mean Arterial Pressure, Cuff 96 mmHg SpO2 93 % 07/10/2024 11:45 EST Heart Rate Monitored 63 bpm Respiratory Rate Monitored 10 br/min Systolic Blood Pressure 144 mmHg HI Diastolic Blood Pressure 70 mmHg Mean Arterial Pressure, Cuff 95 mmHg SpO2 94 % 07/10/2024 11:40 EST Heart Rate Monitored 74 bpm Respiratory Rate Monitored 12 br/min Systolic Blood Pressure 152 mmHg HI Diastolic Blood Pressure 70 mmHg Mean Arterial Pressure, Cuff 97 mmHg SpO2 93 % 07/10/2024 11:35 EST Heart Rate Monitored 73 bpm Respiratory Rate Monitored 17 br/min Systolic Blood Pressure 156 mmHg HI Diastolic Blood Pressure 69 mmHg Mean Arterial Pressure, Cuff 98 mmHg SpO2 95 % 07/10/2024 11:30 EST Heart Rate Monitored 75 bpm Respiratory Rate Monitored 10 br/min Systolic Blood Pressure 148 mmHg HI Diastolic Blood Pressure 77 mmHg Mean Arterial Pressure, Cuff 101 mmHg SpO2 98 % 07/10/2024 11:26 EST Temperature Temporal Artery 36.5 DegC Heart Rate Monitored 76 bpm Respiratory Rate Monitored 14 br/min Systolic Blood Pressure 158 mmHg HI Diastolic Blood Pressure 72 mmHg Blood Pressure Location Right arm Mean Arterial Pressure, Cuff 101 mmHg SpO2 97 % Pain Assessment: Pain Assessment 07/10/2024 12:20 EST Primary Pain Location Bladder Numeric Pain Scale 5 = Moderate pain 07/10/2024 11:48 EST Numeric Pain Scale 7 07/10/2024 11:44 EST Primary Pain Location Bladder Primary Pain Quality Cramping Numeric Pain Scale 7 07/10/2024 11:42 EST Numeric Pain Scale 7 07/10/2024 11:26 EST Primary Pain Location Bladder Numeric Pain Scale 0 = No pain . General: Awake, Alert, Appropriate. Respiratory: Adequate air exchange, Non-labored. Cardiovascular: Stable, Normal peripheral perfusion. Neurological: Neurologic exam at baseline. No changes.. Assessment Anesthetic outcome No anesthetic complications noted. No nausea/vomiting. Review / Management Condition: Stable. Plan Transfer/Discharge: Transfer/Discharge Discharge when meets criteria ( From PACU to Ambulatory Surgery Unit, and To home ).[facility] ShawComment on above:Result Comment: Electronically Signed By: Benjy Chen Jr., DO\.br\Date and Time Signed: 07/10/24 13:29 [id number] NoteProgress Note-Physician Patient: EARL JIMÉNEZ Age: 73 years Sex: Male : 1950 Associated Diagnoses: None Author: Benjy Chen Jr., DO Preoperative Information Anesthesia Preop Info NPO since midnight Anesthesia history: Patient history: No prior anesthetic problems. Informed consent: Signed by patient. Re-evaluation prior to induction: Initial evaluation reviewed: No significant change. Health Status Allergies: Allergic Reactions (Selected) Severity Not Documented Bacitracin- Unknown. Neomycin- Unknown. Polymyxin B ophthalmic- Unknown., Allergies (3) Active Severity Reaction bacitracin Unknown neomycin Unknown polymyxin B ophthalmic Unknown Current medications: (Selected) Inpatient Medications Ordered HYDROmorphone 1 mg/mL injectable solution: 0.4 mg = 0.4 mL, Injection, IV Push, q4min PRN Pain for 5 dose(s), Stop date Limited # of times, Routine, Start date 07/10/24 6:52:00 EST, 07/10/24 6:52:00 EST Lactated Ringers IV Liv 1000 mL 1,000 mL: 1,000 mL, IV, 100 mL/hr, Routine, Start date 07/10/24 6:52:00 EST, 10 hour(s), Total volume (mL): 1,000, 127.5 kg, 2.55, m2 Sodium Chloride 0.9% IV Liv 1000 mL 1,000 mL: 1,000 mL, IV, 150 mL/hr, Routine, Start date 256:00:00 EST, 6.7 hour(s), Total volume (mL): 1,000, 127.5 kg, 2.55, m2 cefazolin additive + Sodium Chloride 0.9% intravenous solution 100 mL: 3 gram = 1 EA, Injection, IVPiggyback, Once, Stop date 07/10/24 6:00:00 EST, Routine, Start date 07/10/24 6:00:00 EST, 200 mL/hr, Infuse over 30 minute(s), HOLD if patient has history of anaphylactic allergic reaction to Penicillin Documented Medications Documented Afrin Allergy Sinus: 2 spray(s), Nasal, Bedtime, Refill(s) 0, Allergy symptoms Iron 100 Plus: 1 tab(s), Oral, Daily, Refill(s) 0, Prophylaxis Pantoprazole [address] Tab: 40 mg = 1 tab(s), Oral, Daily, Indigestion aspirin 81 mg oral capsule: 81 mg = 1 cap(s), Oral, Daily, Refills(s) 0, Prophylaxis atorvastatin 10 mg Tab: 10 mg = 1 tab(s), Oral, Every other day, High cholesterol calcium-vitamin D: See Instructions, Refill(s) 0, Prophylaxis diclofenac-misoprostol 75 mg-200 mcg oral delayed release tablet: 1 tab(s), Oral, BID, Arthritis fluticasone Nasal 0.05 mg/inh Rothbury: 1 spray(s), Nasal, Daily, Allergy symptoms tamsulosin 0.4 mg Cap: 0.4 mg = 1 cap(s), Oral, Daily, Other (see comment), Home Medications (9) Active Afrin Allergy Sinus 2 spray(s), Nasal, Bedtime aspirin 81 mg oral capsule 81 mg = 1 cap(s), Oral, Daily atorvastatin 10 mg Tab 10 mg = 1 tab(s), Oral, Every other day calcium-vitamin D See Instructions diclofenac-misoprostol 75 mg-200 mcg oral delayed release tablet 1 tab(s), Oral, BID fluticasone Nasal 0.05 mg/inh Rothbury 1 spray(s), Nasal, Daily Iron 100 Plus 1 tab(s), Oral, Daily Pantoprazole [address] Tab 40 mg = 1 tab(s), Oral, Daily tamsulosin 0.4 mg Cap 0.4 mg = 1 cap(s), Oral, Daily , Medications (4) Active Scheduled: (1) ceFAZolin + Sodium Chloride 0.9% Minibag 100 mL 3 gram 1 EA, IV Piggyback, Once Continuous: (2) Lactated Ringers 1,000 mL 1,000 mL, IV, 100 mL/hr Sodium Chloride 0.9% 1,000 mL 1,000 mL, IV, 150 mL/hr PRN: (1) HYDROmorphone 1 mg/mL SOLN [F] 0.4 mg 0.4 mL, IV Push, q4min Problem list: All Problems Acute prostatitis / SNOMED CT 834749093 / Confirmed Asthma / SNOMED CT 109939037 / Confirmed BPH with urinary obstruction / SNOMED CT 6390182661 / Confirmed Erectile dysfunction / SNOMED CT 2012957677 / Confirmed GERD (gastroesophageal reflux disease) / SNOMED CT 970384122 / Confirmed Gross hematuria / SNOMED CT 099375681 / Confirmed Hypercholesterolemia / SNOMED CT 19168150 / Confirmed Hypertension / SNOMED CT 1186551894 / Confirmed Hypogonadism male / SNOMED CT 48553425 / Confirmed Incomplete bladder emptying / SNOMED CT 8658542715 / Confirmed Insomnia / SNOMED CT 787116688 / Confirmed Lumbar spondylosis / SNOMED CT 526969731 / Confirmed Obesity / SNOMED CT 7415788945 / Confirmed Obstructive sleep apnea / SNOMED CT 913942722 / Confirmed Canceled: H/O hypogonadism / SNOMED CT 058781634 Histories Past Medical History: No active or resolved past medical history items have been selected or recorded. Procedure history: Flexible cystoscopy (795245312) on 06/06/2024 at 73 Years. Colonoscopy (452833046). Tonsillectomy (341432936). History of hernia repair (2764733524). Social History Social & Psychosocial Habits Alcohol 07/10/2024 Risk Assessment: Low Risk 07/10/2024 Use: Current Frequency: 1-2 times per month Tobacco 07/10/2024 Tobacco Use: Former smoker, quit more Smokeless tobacco use: Never Type: Cigarettes . Physical Examination Vital Signs 07/10/2024 6:22 EST Respiratory Rate 16 br/min Systolic Blood Pressure 151 mmHg HI Diastolic Blood Pressure 68 mmHg SpO2 95 % 07/10/2024 6:20 EST Heart Rate Monitored 67 bpm Systolic Blood Pressure 159 mmHg HI Diastolic Blood Pressure 81 m (more content not included)...[facility] ShawComment on above:Result Comment: Electronically Signed By: Benjy Chen Jr., DO.br\Date and Time Signed: 07/10/24 06:55 [id number] History of Present illness Narrative* Gogo Harding MA - 07/09/2024 1:45 PM EST Patient was in today to be re-fit with hearing aids after they were sent in for end of warranty service. I did adjust MPO per patient's request. I turned off frequency compression. Patient thought the aids sounded good. Aids were re- paired to his phone. Function was tested. Reviewed end of warrantystatus. Patient purchased one pack of domes and one pack of filters for $20. Patient to return as needed. documented in this [facility]12-18-2024 History of Present illness Narrative* ALONSO George - 06/18/2024 9:00 AM EST History: Pt has history of bilateral hearing loss. He states he is not feeling well. Last audio at this office was 03-21-2021. He was fit with [employer] Pure C&G in June 2021. Pt hears static in the right hearing aid. He also needs his ears cleaned. Otoscopic Exam: Right Ear: Partially occlusive cerumen Left Ear: Ear canal clear and TM intact Procedure: Cerumen removed from right ear canal under direct otoscopy using suction without incident. TM intact post cleaning. Pure Tone Audiometry Right Ear: Mild sloping precipitously to profound sensorineural hearing loss above 500 Hz Left Ear: Mild sloping precipitously to profound sensorineural hearing loss above 500 Hz Speech Audiometry Right SRT = 35 dB and word discrimination score at 80 dBHL (masked) = 80% Left SRT = 45 dB and word discrimination score at 80 dBHL (masked) = 88% Impressions: Hearing acuity unchanged since evaluation in 2020. Hearing Aid Check: Pt's warranty expires 07-03-24. Recommend sending both aids in for EOW repair and pt agrees. 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 documented in this [facility]12-06-2024 Hospital Discharge instructions Patient Education 06/06/2024 08:48:02 Transurethral Resection of the Prostate Transurethral Resection of the Prostate Transurethral resection of the prostate (TURP) is the removal, or resection, of part of the prostate tissue. This procedure is done to treat an enlarged prostate gland (benign prostatic hyperplasia). The goal of TURP is to remove enough prostate tissue to allow for a normal flow of urine. The procedure will allow you to empty your bladder more completely when you urinate so that you can urinate less often. In a transurethral resection, a thin telescope with a light, a camera, and an electric cutting edge(resectoscope) is passed through the urethra and into the prostate. The opening of the urethra is at the end of the penis. Tell a health care provider about: Any allergies you have. All medicines you are taking, including vitamins, herbs, eye drops, creams, and zkwc-utu-qyujupe medicines. Any problems you or family members have had with anesthetic medicines. Any bleeding problems you have. Any surgeries you have had. Any medical conditions you have. Any prostate infections you have had. What are the risks? Generally, this is a safe procedure. However, problems may occur, including: Infection. Bleeding. Allergic reactions to medicines. Blood in the urine (hematuria). Damage to nearby structures or organs. Other problems may occur, but they are rare. They include: Dry ejaculation, or having no semen come out during orgasm. Erectile dysfunction, or being unable to have or keep an erection. Scarring that leads to narrowing of the urethra. This narrowing may block the flow of urine. Inability to control when you urinate (incontinence). Deep vein thrombosis. This is a blood clot that can develop in your leg. TURP syndrome. This can happen when you lose too much sodium during or after the procedure. Some signs and symptoms of this condition include: ?Weakness. ?Headaches. ?Nausea or vomiting. ?Muscle cramping. What happens before the procedure? When to stop eating and drinking Follow instructions from your health care provider about what you may eat and drink before your procedure. These may include: 8 hours before your procedure ?Stop eating most foods. Do not eat meat, fried foods, or fatty foods. ?Eat only light foods, such as toast or crackers. ?All liquids are okay except energy drinks and alcohol. 6 hours before your procedure ?Stop eating. ?Drink only clear liquids, such as water, clear fruit juice, black coffee, plain tea, and sports drinks. ?Do not drink energy drinks or alcohol. 2 hours before your procedure ?Stop drinking all liquids. ?You may be allowed to take medicines with small sips of water. If you do not follow your health care provider's instructions, your procedure may be delayed or canceled. Medicines Ask your health care provider about: Changing or stopping your regular medicines. This is especially important if you are taking diabetes medicines or blood thinners. Taking medicines such as aspirin and ibuprofen. These medicines can thin your blood. Do not take these medicines unless your health care provider tells you to take them. Taking ikrl-zwk-tcsufgj medicines, vitamins, herbs, and supplements. Surgery safety Ask your health care provider what steps will be taken to help prevent infection. These steps may include: Removing hair at the surgery site. Washing skin with a germ-killing soap. Taking antibiotic medicine. General instructions Do not use any products that contain nicotine or tobacco for at least 4 weeks before the procedure.These products include cigarettes, chewing tobacco, and vaping devices, such as e-cigarettes. If you need help quitting, ask your health care provider. If you will be going home right after the procedure, plan to have a responsible adult: ?Take you home from the hospital or clinic. You will not be allowed to drive. ?Care for you for the time you are told. What happens during the procedure? An IV will be inserted into one of your veins. You will be given one or more of the following: ?A medicine to help you relax (sedative). ?A medicine to make you fall asleep (general anesthetic). ?A medicine that is injected into your spine to numb the area below and slightly above the injection site (spinal anesthetic). Your legs will be placed in foot rests (stirrups) so that your legs are apart and your knees are bent. The resectoscope will be passed through your urethra to your prostate. Parts of your prostate will be resected using the cutting edge of the resectoscope. Fluid will be passed to rinse out the cut tissues (irrigation). The resectoscope will be removed. A small, thin tube (catheter) will be passed through your urethra and into your bladder. The catheter will drain urine into a bag outside of your body. The procedure may vary among health care providers and hospitals. What happens after the procedure? Your blood pressure, heart rate, breathing rate, and blood oxygen level will be monitored until youleave the hospital or clinic. You will be given fluids through the IV. The IV will be removed when you start eating and drinking normally. You may have some pain. Pain medicine will be available to help you. You will have a catheter draining your urine. ?You may have blood in your urine. Your catheter may be kept in until your urine is clear. ?Your urinary drainage will be monitored. If necessary, your bladder may be rinsed out (irrigated) through your catheter. You will be encouraged to walk around as soon as possible. You may have to wear compression stockings. These stockings help to prevent blood clots and reduce swelling in your legs. If you were given a sedative during the procedure, it can affect you for several hours. Do not drive or operate machinery until your health care provider says that it is safe. Summary Transurethral resection of the prostate (TURP) is the removal (resection) of part of the prostate tissue. The goal of this procedure is to remove enough prostate tissue to allow for a normal flow of urine. Follow instructions from your health care provider about taking medicines and about eating and drinking before the procedure. This information is not intended to replace advice given to you by your health care provider. Make sure you discuss any questions you have with your health care provider. Document Revised: 03/14/2022 Document Reviewed: 03/14/2022 [employer] Patient Education 2023 [employer]. Follow Up Care 05/15/2024 10:43:41 With:JAYASHREE JIN MD, SURI Address: When: Unknown Comments:Scheduled TURP [facility] 12-06-2024 NotePatient Education Urology Transurethral Resection of the Prostate Transurethral resection of the prostate (TURP) is the removal, or resection, of part of the prostate tissue. This procedure is done to treat an enlarged prostate gland (benign prostatic hyperplasia). The goal of TURP is to remove enough prostate tissue to allow for a normal flow of urine. The procedure will allow you to empty your bladder more completely when you urinate so that you can urinate less often. In a transurethral resection, a thin telescope with a light, a camera, and an electric cutting edge(resectoscope) is passed through the urethra and into the prostate. The opening of the urethra is at the end of the penis. Tell a health care provider about: ??? Any allergies you have. ??? All medicines you are taking, including vitamins, herbs, eye drops, creams, and kras-shd-nfuxpan medicines. ??? Any problems you or family members have had with anesthetic medicines. ??? Any bleeding problems you have. ??? Any surgeries you have had. ??? Any medical conditions you have. ??? Any prostate infections you have had. What are the risks? Generally, this is a safe procedure. However, problems may occur, including: ??? Infection. ??? Bleeding. ??? Allergic reactions to medicines. ??? Blood in the urine (hematuria). ??? Damage to nearby structures or organs. Other problems may occur, but they are rare. They include: ??? Dry ejaculation, or having no semen come out during orgasm. ??? Erectile dysfunction, or being unable to have or keep an erection. ??? Scarring that leads to narrowing of the urethra. This narrowing may block the flow of urine. ??? Inability to control when you urinate (incontinence). ??? Deep vein thrombosis. This is a blood clot that can develop in your leg. ??? TURP syndrome. This can happen when you lose too much sodium during or after the procedure. Some signs and symptoms of this condition include: ? Weakness. ? Headaches. ? Nausea or vomiting. ? Muscle cramping. What happens before the procedure? When to stop eating and drinking Follow instructions from your health care provider about what you may eat and drink before your procedure. These may include: ??? 8 hours before your procedure ? Stop eating most foods. Do not eat meat, fried foods, or fatty foods. ? Eat only light foods, such as toast or crackers. ? All liquids are okay except energy drinks and alcohol. ??? 6 hours before your procedure ? Stop eating. ? Drink only clear liquids, such as water, clear fruit juice, black coffee, plain tea, and sports drinks. ? Do not drink energy drinks or alcohol. ??? 2 hours before your procedure ? Stop drinking all liquids. ? You may be allowed to take medicines with small sips of water. If you do not follow your health care provider's instructions, your procedure may be delayed or canceled. Medicines Ask your health care provider about: ??? Changing or stopping your regular medicines. This is especially important if you are taking diabetes medicines or blood thinners. ??? Taking medicines such as aspirin and ibuprofen. These medicines can thin your blood. Do not take these medicines unless your health care provider tells you to take them. ??? Taking zwgx-dug-wvnywvb medicines, vitamins, herbs, and supplements. Surgery safety Ask your health care provider what steps will be taken to help prevent infection. These steps may include: ??? Removing hair at the surgery site. ??? Washing skin with a germ-killing soap. ??? Taking antibiotic medicine. General instructions ??? Do not use any products that contain nicotine or tobacco for at least 4 weeks before the procedure. These products include cigarettes, chewing tobacco, and vaping devices, such as e-cigarettes. If you need help quitting, ask your health care provider. ??? If you will be going home right after the procedure, plan to have a responsible adult: ? Take you home from the hospital or clinic. You will not be allowed to drive. ? Care for you for the time you are told. What happens during the procedure? An IV will be inserted into one of your veins. ??? You will be given one or more of the following: ? A medicine to help you relax (sedative). ? A medicine to make you fall asleep (general anesthetic). ? A medicine that is injected into your spine to numb the area below and slightly above the injection site (spinal anesthetic). ??? Your legs will be placed in foot rests (stirrups) so that your legs are apart and your knees are bent. ??? The resectoscope will be passed through your urethra to your prostate. ??? Parts of your prostate will be resected using the cutting edge of the resectoscope. ??? Fluid will be passed to rinse out the cut tissues (irrigation). ??? The resectoscope will be removed. ??? A small, thin tube (catheter) will be passed through your urethra and into your bladder. The cathete (more content not included)...[facility]11[facility]19[facility] Main [place] [address] [place] [address] Ultrasound Report Signed Patient: Earl Jiménez MR#: [id number] : 1950 Acct:[id number] Age/Sex: 73 / M ADM Date: 4 Loc: Room: Type: [facility] Attending Dr: Jayashree Jin MD Ordering Provider: Jayashree Jin MD Date of Service: 05/20/24 US/US prostate: BPH W/ LUTS, N40.1 Copies to: Jayashree Jin MD~ Prostate ultrasound. Reason for exam: Acute prostatitis. COMPARISON: None. TECHNIQUE: Transrectal imaging of the prostate gland was obtained. FINDINGS: The prostate gland measures 4.9 x 5.1 x 3.2 cm for a prostate volume of 42 mL. No hyperemia seen on color Doppler imaging to suggest prostatitis. Heterogenous echotexture seen involving thecentral gland with cystic changes noted likely relating underlying BPH. No hypoechoic nodules seen within the peripheral zone to suggest prostate malignancy. US/US prostate Impression: No ultrasound evidence of malignancy is seen involving the peripheral zone. Heterogenous echotexture involving the central gland with cystic changes likely relating underlyingBPH. No hyperemia is noted to suggest underlying prostatitis. If further evaluation is needed, prostate MRI is recommended. Impression dictated by: Sherif Jacinto Jr., D.O.05/20/2024 11:40 AM Dictation Location: [place] [address] Tech: Lizzy Dusty Transcribed By: ROGER 05/20/24 1140 Dictated By: Sherif Jacinto Jr, DO 05/20/24 1134 Signed By: 05/20/24 1140 [facility]10-29-2024 Hospital Discharge instructions Patient Education 04/29/2024 14:26:17 [...] including vitamins, herbs, eye drops, creams, and wrsv-jnd-apcvslr medicines. Any problems you or family members [...] provider tells you to take them. Taking ltuj-wam-istyvsn medicines, vitamins, herbs, and supplements. Tests You [...] Follow these instructions at home: Medicines Take daqu-ysr-gytpazf and prescription medicines only as told by your health care provider. If you were prescribed an antibiotic medicine, take it as told by your health care provider. Do notstop taking the antibiotic even if you start [...] blood in your urine increases, call your healthcare provider. Follow instructions from your health care provider about eating or drinking restrictions. If a tissue sample was removed for testing (biopsy) during your procedure, it is up to you to get your test results. Ask your health care provider, or the department that is doing the test, when yourresults will be ready. Drink enough fluid to [...] blood in your urine increases, call your healthcare provider. If you were prescribed an antibiotic medicine, take it as told by your health care provider. Do notstop taking the antibiotic even if you start to feel better. This information is not intended to replace advice given to you by your health care provider. Make sure you discuss any questions you have with your health care provider. Document Revised: 03/01/2022 Document Reviewed: 01/28/2021 [employer] Patient Education 2023 [employer]. Follow Up Care 04/24/2024 13:06:10 With:JAYASHREE JIN MD, URL Address: When: Unknown [facility] 10-29-2024 NotePatient Education Urology Cystoscopy Cystoscopy is a procedure that is [...] Cystoscopy may be recommended if you have: ??? Urinary tract infections that keep coming back. ??? Blood in the urine (hematuria). ??? An inability to control when you urinate (urinary incontinence) or an overactive bladder. ??? Unusual cells found in a urine sample. ??? A blockage in the urethra, such as a urinary stone. ??? Painful urination. ??? An abnormality in the bladder found during an intravenous pyelogram (IVP) or CT scan. Cystoscopy may also be done to remove a sample of tissue to be examined under a microscope (biopsy). Tell a health care provider about: ??? Any allergies you have. ??? All medicines you are taking, including vitamins, herbs, eye drops, creams, and nkpi-mec-pvdtzto medicines. ??? Any problems you or family members have had with anesthetic medicines. ??? Any blood disorders you have. ??? Any surgeries you have had. ??? Any medical conditions you have. ??? Whether you are or may be . What are the risks? Generally, this is a safe procedure. However, problems may occur, including: ??? Infection. ??? Bleeding. ??? Allergic reactions to medicines. ??? Damage to other structures or organs. What happens before the procedure? Medicines Ask your health care provider about: ??? Changing or stopping your regular medicines. This is especially important if you are taking diabetes medicines or blood thinners. ??? Taking medicines such as aspirin and ibuprofen. These medicines can thin your blood. Do not take these medicines unless your health care provider tells you to take them. ??? Taking ulba-oux-urqjqpt medicines, vitamins, herbs, and supplements. Tests You may have an exam or testing, such as: ??? X-rays of the bladder, urethra, or kidneys. ??? CT scan of the abdomen or pelvis. ??? Urine tests to check for signs of infection. General instructions ??? Follow instructions from your health care provider about eating or drinking restrictions. ??? Ask your health care provider what steps will be taken to help prevent infection. These steps may include: ? Washing skin with a germ-killing soap. ? Taking antibiotic medicine. ??? Plan to have a responsible adult take you home from the hospital or clinic. What happens during the procedure? You will be given one or more of the following: ? A medicine to help you relax (sedative). ? A medicine to numb the area (local anesthetic). ??? The area around the opening of your urethra will be cleaned. ??? The cystoscope will be passed through your urethra into your bladder. ??? Germ-free (sterile) fluid will flow through the cystoscope to fill your bladder. The fluid willstretch your bladder so that your health care provider can clearly examine your bladder eugene. ??? Your doctor will look at the urethra and bladder. Your doctor may take a biopsy or remove stones. ??? The cystoscope will be removed, and your bladder will be emptied. The procedure may vary among health care providers and hospitals. What can I expect after the procedure? After the procedure, it is common to have: ??? Some soreness or pain in your abdomen and urethra. ??? Urinary symptoms. These include: ? Mild pain or burning when you urinate. Pain should stop within a few minutes after you urinate. This may last for up to 1 week. ? A small amount of blood in your urine for several days. ? Feeling like you need to urinate but producing only a small amount of urine. Follow these instructions at home: Medicines ??? Take fokk-igo-ctpatzl and prescription medicines only as told by your health care provider. ??? If you were prescribed an antibiotic medicine, take it as told by your health care provider. Donot stop taking the antibiotic even if you start to feel better. General instructions ??? Return to your normal activities as told by your health care provider. Ask your health care provider what activities are safe for you. ??? If you were given a sedative during the procedure, it can affect you for several hours. Do not drive or operate machinery until your health care provider says that it is safe. ??? Watch for any blood in your urine. If the amount of blood in your urine increases, call your health care provider. ??? Follow instructions from your health care provider about eating or drinking restrictions. ??? If a tissue sample was removed for testing (biopsy) during your (more content not included)...[facility]10-29-2024 Evaluation + Plan note Diagnostic Tests Pending * Testosterone Level Total 04/29/24 [facility] 10-23-2024 NoteRight Eye Reliability was good. Progression has been stable. Foveal threshold was normal. Findings include normal observations. Left Eye Reliability was good. Progression has been stable. Foveal threshold was normal. Findings include normal observations.[facility] [id number] History of Present illness Narrative* Mago Travis, - 04/23/2024 8:45 AM EDT Images from the original note were not included. Assessment/Plan Diagnoses and all orders for this visit: Glaucoma suspect of both eyes - Glaucoma suspect OU - Continue observation, following the findings of IOP, C/D ratio, HVF and OCTONH. Encouraged patient compliance. Age-related nuclear cataract of [...] lid scrubs were recommended. documented in this encounterSullivan County [facility] [id number] History of Present illness Narrative* Abby De Souza MD - 04/21/2024 8:30 AM EDT Skin Check Location: Patient requests a skin examination from the waist up, A full body skin exam was offered,patient declined Dermatologic history: history of Actinic Keratosis, [...] benign pigmented lesions that occur on sun-exposed andsun-damaged skin. No treatment is necessary. Recommended regular use of broad spectrum sunscreen SPF 30 or higher Next Visit: 1 year [place] [id number] Evaluation note* Diagnosis Onset Date Resolution Status Admit Date Asthma acuteSept2023 8:41amGERD (gastroesophageal reflux disease)acute March 20, 2024 8:41amHypercholesterolemiaacuteSeptember 2023 8:41am InsomniaacuteSept2023 8:41amLumbar spondylosisacuteSept2023 8:41amMedicare annual wellness visit, subsequentacutept2023 8:41amObesityacuteSept2023 8:41amOSA (obstructive sleep apnea)acute March 20, 2024 8:41amScreening PSA (prostate specific antigen)acute March 20, 2024 8:41amScreening for colon cancernoneactiveSept2023 8:41amAcute prostatitisacuteSept2023 11:19amBenign prostatic hyperplasia with lower urinary tract symptomsacuteSept2023 11:19am NauseaacuteSept2023 11:19am [facility] Work Phone: [phone] 409-868910-05-2023 Evaluation note* Encounter Date Diagnosis Assessment Notes Treatment Notes Treatment Clinical Notes Apr, Acute bronchitis due to other sp ecified organisms (ICD-10 - J20.8) Instructed to use Robitussin or Mucinex for cough, saline or Flonase NS for congestion, Tylenol forpain and fever. Apr,Mild intermittent asthma with acute exacerbation (ICD-10 - J45.21) THANIA as needed [facility] Other 09-12-2023 Evaluation note* Encounter Date Diagnosis Assessment Notes Treatment Notes Treatment Clinical Notes Mar, Non-recurrent acute serous otitis media of left ear (ICD-10 - H65.02) Mar,ysfunction of left eustachian tube (ICD-10 - H69.92) [facility] Other 09-07-2023 Evaluation note* Encounter Date Diagnosis [...] reviewed and amended by provider signed below. Mar,Moderate persistent asthma without complication (ICD-10 - J45.40) Stable w/o use of inhalers. Sinus and allergy triggered. No ER visits for AE INstructed on medication use and to notify office w/ wheezing or coughing Continue GERD precautions Mar,Elevated cholesterol (ICD-10 - E78.00)Instructed on diet and exercise with continued statin therapy.Discussed the beneficial effects of lo wering cholesterol in reducing the risk for cerebrovascular and cardiovascular disease. Mar,astroesophageal reflux disease with esophagitis without hemorrhage (ICD-10 - K21.00)Diet instructions: Smaller portions, avoid eating and laying flat, avoid eating or drinking prior to bedtime. Weight loss. Mar,Nocturia (ICD-10 - R35.1) Mar,enign prostatic hyperplasia with lower urinary tract symptoms (ICD- 10 - N40.1)Yearly SID and PSA Mar,OSA (obstructive sleep apnea) (ICD-10 - G47.33)This patient is aware of the benefits associated with HARPER: With continued use, the patient reduces the risk for FL, CVA, HTN, cardiac dysrhythmias and sudden cardiac deaths.The patient is also aware of the association between HARPER and morning headaches, daytime somnolence, fatigue and obesity, whichalso has been improved with continued use.The patient is compliant with treatment, wearing the equipment every night for greater than 4 hours.The patient is instructed to continue use of the CPAP forOSA treatment. Mar,Fatigue, unspecified type (ICD-10 - R53.83)check labs: CBC, TSH, BS Mar,hronic vasomotor rhinitis (ICD-10 - J30.0)Avoid allergens and continue Flonase, Claritin and Sudafed Mar,Lumbar spondylosis (ICD-10 - M47.816)The patient is instructed to avoid bending, twisting or lifting. They are to use intermittent heat and ice as needed. They may schedule a massage or gentle manipulation. They may safely use Tylenol as needed. Mar,High risk medication use (ICD-10 - Z79.899)Check ALT Mar,Screening PSA (prostate specific antigen) (ICD-10 - Z12.5)Yealry SID and PSA Mar,OtherUTD w/ CRC screening Colonoscopy next year due to 3 bro w/ CRC Increase dietary fiber and continue ASA [facility] Other Evaluation + Plan note Future Appointments Appointment Date:07/03/2024 07:30:00 AM Scheduled Provider: Location:[facility] Appointment Type:Surgical PAT FT Appointment Date:07/10/2024 07:30:00 AM Scheduled Provider: Location:[facility] Appointment Type:Surgery FT [facility] Evaluation + Plan note Future Appointments Appointment Date:07/10/2024 07:30:00 AM Scheduled Provider: Location:[facility] Appointment Type:Surgery FT [facility] Evaluation + Plan note Future Appointments Appointment Date:11/25/2024 08:00:00 AM Scheduled Provider:JAYASHREE JIN MD Location:[facility] Appointment Type:URO Office Visit [facility] Evaluation noteNo InformationCharlotte [employer] Other Evaluation note* Diagnosis Onset Date Resolution Status Asthma acuteGERD (gastroesophageal reflux disease)acuteHypercholesterolemiaacute InsomniaacuteLumbar spondylosisacuteMedicare annual wellness visit, subsequent acuteOSA (obstructive sleep apnea)acuteScreening PSA (prostate specific antigen) acuteScreening for colon cancernonctive [facility] Work Phone: Evaluation note* Diagnosis Onset Date Resolution Status Asthma acuteGERD (gastroesophageal reflux disease)acuteHypercholesterolemiaacute InsomniaacuteLumbar spondylosisacuteMedicare annual wellness visit, subsequent acuteObesityacuteOSA (obstructive sleep apnea)acuteScreening PSA (prostate specific antigen)acuteScreening for colon cancernonctive [facility] Work Phone: Evaluation note* Diagnosis Seborrheic keratosis- Primary Angioma of skin Lentigines [facility] Diagnosis Glaucoma suspect of both eyes- Primary Unspecified preglaucoma Age-related nuclear cataract of both eyes Dry eyes Unspecified tear film insufficiency Blepharitis of upper and lower eyelids of both eyes, unspecified type [facility]* Diagnosis Sensorineural hearing loss, bilateral- Primary [facility]* Diagnosis Sensorineural hearing loss, bilateral- Primary [facility]* Diagnosis Onset Date Resolution Status Admit Date Benign prostatic hyperplasia with lower urinary tract symptoms acuteJanuary 2024 1:12pmGERD (gastroesophageal reflux disease)acuteJanuary 2024 1:12pmHypercholesterolemiaacuteJanuary 2024 1:12pmObesityacute July 21, 2024 1:12pm [facility] Work Phone: Evaluation note* Diagnosis Glaucoma suspect of both eyes- Primary Unspecified preglaucoma [facility]* Diagnosis Seborrheic keratosis- Primary Angioma of skin Lentigines Skin tag Unspecified hypertrophic and atrophic condition of skin [facility]* Diagnosis Onset Date Resolution Status Admit Date Asthma acuteOctober 2024 9:14amGERD (gastroesophageal reflux disease)acuteOctober 2024 9:14amHypercholesterolemiaacuteOctober 2024 9:14amInsomniaacute October 2024 9:14amLumbar spondylosisacuteOctober 2024 9:14amMedicare annual wellness visit, subsequentacuteOctober 2024 9:14amObesityacute October 2024 9:14amOSA (obstructive sleep apnea)acuteOctober 2024 9:14amScreening PSA (prostate specific antigen)acuteOctober 2024 9:14am [facility] Work Phone: History general Narrative - Reported* Type Description Date Medical History Seasonal allergies Medical Historysleep apneaMedical Historyasthma - mild intermittentMedical HistoryosteoarthritisMedical HistoryBPHSurgical [id number] Snnzptfbmgtkf0345Ncbqqktk JuhjdcaGbcooadkwcw5813Aoruhegi VcspetkIkfvlhmwxfb2521 Surgical ZntxcpfVzrnmiwgbiv5622Wtcfosyy HistoryColonoscopy, repeat in 3-5 yrs 2020Hospitalization Historysee surgical history [facility] Other Hospital course Narrative No data available for this section [facility] Discharge instructions No data available for this section [facility] Progress note No data available for this section [facility] Reason for referral (narrative)No reason for referral information availableGrand Lake Joint [facility] Work Phone: Summary Purpose Family History Relationship Condition Age at Onset Recorded Date/T cal Not Specified Diabetes mellitus Unknown brotherMalignant neoplasm of colonUnknownfatherDeceasedUnknownmotherDeceased Unknown Advance Directives Advance Directive Response Recorded Date/ Time Advance Directives No July 15, 2018 3:43pm Advance Directive Response Recorded Date/ Time Advance Directives No July 15, 2018 2:43pm Chief Complaint and Reason for Visit Chief Complaint Wellness Reason for Visit Asthma GERD (gastroesophageal reflux disease) Hypercholesterolemia Insomnia Lumbar spondylosis Medicare annual wellness visit, subsequent HARPER (obstructive sleep apnea) Screening PSA (prostate specific antigen) Screening for colon cancer Chief Complaint Wellness stomach painReason for VisitAsthma GERD (gastroesophageal reflux disease) Hypercholesterolemia Insomnia Lumbar spondylosis Medicare annual wellness visit, subsequent Obesity HARPER (obstructive sleep apnea) Screening PSA (prostate specific antigen) Screening for colon cancer Chief Complaint Admit Date Wellness March 20, 2024 8:41am stomach pain March 27, 2024 11:19am n40.1 May 20, 2024 7:46am Reason for Visit Admit Date Asthma March 20, 2024 8:41am GERD (gastroesophageal reflux disease) S eptember 2023 8:41am Hypercholesterolemia March 20 8:41am Insomnia March 20, 2024 8:41am Lumbar spondylosis March 20, 2024 8:41am Medicare annual wellness visit, subseque nt March 20, 2024 8:41am Obesity March 20, 2024 8:41am HARPER (obstructive sleep apnea) March 20, 2024 8:41am Screening PSA (prostate specific antigen ) March 20, 2024 8:41am Screening for colon cancer March 8:41am Acute prostatitis March 27, 2024 11:19am Benign prostatic hyperplasia with lower urinary tract symptoms March 27, 2024 11:19am Nausea March 27, 2024 11:19am Chief Complaint Admit Date n40.1 May 20, 2024 7:46am family hx of colon cancer May 23, 2024 7:14am family hx of colon cancer May 23, 2024 9:13am Amb Documentation May 23, 2024 1:26pm Amb Documentation July 14, 2024 8 :26am [facility]:Turp July 21, 2024 1 :12pm Reason for Visit Admit Date Benign prostatic hyperplasia with lower urinary tract symptoms July 21, 2024 1:12pm GERD (gastroesophageal reflux disease) J anuary 2024 1:12pm Hypercholesterolemia July 21, 2024 1:12pm Obesity July 21, 2024 1 :12pm Chief Complaint Admit Date Wellness April 02, 2025 9: 14am Reason for Visit Admit Date Asthma April 02, 2025 9: 14am GERD (gastroesophageal reflux disease) O ctober 2024 9:14am Hypercholesterolemia April 02, 2025 9 :14am Insomnia April 02, 2025 9: 14am Lumbar spondylosis April 02, 2025 9: 14am Medicare annual wellness visit, subseque nt April 02, 2025 9:14am Obesity April 02, 2025 9: 14am HARPER (obstructive sleep apnea) April 9:14am Screening PSA (prostate specific antigen ) April 02, 2025 9:14am Additional Source Comments (unrecognized sect ion and [...] section and content) DATE CREATED AUTHOR 06/12/2020 [facility] DATE CREATED AUTHOR AUTHOR'S ORGANIZ ATION 05/24/2022 [facility] DATE CREATED AUTHOR AUTHOR'S ORGANIZ ATION 06/03/2024 [facility] DATE CREATED AUTHOR AUTHOR'S ORGANIZ ATION 07/04/2024 [facility] DATE CREATED AUTHOR AUTHOR'S ORGANIZ ATION 07/15/2024 [facility] DATE CREATED AUTHOR AUTHOR'S ORGANIZ ATION 07/16/2024 [facility] DATE CREATED AUTHOR AUTHOR'S ORGANIZ ATION 08/26/2024 [facility] [facility] DATE CREATED AUTHOR AUTHOR'S ORGANIZ ATION 11/09/2024 [facility] DATE CREATED AUTHOR AUTHOR'S ORGANIZ ATION 12/02/2024 [facility] DATE CREATED AUTHOR AUTHOR'S ORGANIZ ATION 03/20/2025 [facility] EPIC REASON FOR VISIT (unrecogniz ed section and content) ReasonCommentsSkin CheckReasonCommentsFollow-upReasonOnset DateCommentsProblem with hearing aid wire07/28/2024 Care Teams (unrecognized sec tion and content) Team Status: Active Member Role Status Dates Ruben Shea DO Primary Care Provider Active Team Status: Inactive Member Role Status Dates Ruben Shea DO Primary Care Provider Active Start: April 02, 2025 End: April 02jorge Shea DOAttending ProviderActiveStart: April 02, 2025 End: April 02, 2025 Team Status: Active Member Role Status Dates Ruben Shea DO Primary Care Provider Active Team Status: Active Member Role Status Dates Ruben Shea DO Primary Care Provider Active Start: April 30, 2024 Jayashree Fish-Fredi , MDAttending ProviderActiveStart: April 30, 2024 Team Status: Inactive Member Role Status Dates Ruben Shea DO Primary Care Provider Active Start: May 20, 2024 End: May 20, 2024Kdeuce Fish-Amchau , MDAttending ProviderActive Start: May 20, 2024 End: May 20, 2024 Team Status: Inactive Member Role Status Dates Ruben Shea DO Primary Care Provider Active Start: May 23, 2024 End: May 23, 2024Imad Rusty , MDAttending ProviderActiveStart: May 23, 2024 End: May 23, 2024 Team Status: Active Member Role Status Dates Ruben Shea DO Primary Care Provider Active Start: May 23, 2024 Imad Rusty , MDAttending Provider, Other ProviderActiveStart: May 23, 2024 Team Status: Active Member Role Status Dates Ruben Shea DO Primary Care Provider Active Start: May 23, 2024 Eli Allen CMAAttending ProviderActiveStart: May 23, 2024 Team Status: Active Member Role Status Dates Ruben Shea DO Primary Care Provider Active Start: July 14, 2024 Shruti Coronel CMAAttending ProviderActiveStart: July 14, 2024 Team Status: Inactive Member Role Status Dates Ruben Shea DO Primary Care Provide r, Attending Provider Active Start: July 21, 2024 End: July 21, 2024 Team Status: Inactive Member Role Status Dates Ruben Shea DO Primary Care Provide r, Attending Provider Active Start: March 20, 2024 End: March 20, 2024 Team Status: Inactive Member Role Status Dates Ruben Shea DO Primary Care Provide r, Attending Provider Active Start: March 27, 2024 End: March 27, 2024Team MemberRelationshipSpecialtyStart DateEnd Date Ruben Shea MD [address] [place] [id number] PCP - GeneralInternal Nutwgecf39/23/24Team MemberRelationshipSpecialtyStart Date End Date Ruben Shea MD [address] [place] [facility] [phone] PCP - GeneralInternal Lwlaepxg35/23/24 Team Status: Active Member Role Status Dates Ruben Shea DO Primary Care Provide r, Attending Provider Active Start: April 21, 2024 Team MemberRelationshipSpecialtyStart DateEnd Date Ruben Shea MD [address] [place] [facility] [phone] PCP - GeneralInternal Ankgrqsg87/23/24Team MemberRelationshipSpecialtyStart Date End Date Ruben Shea MD [address] [place] [facility] [address] PCP - GeneralInternal Yeitqcxt93/23/24Team MemberRelationshipSpecialtyStart Date End Date Ruben Shea MD [address] [place] [facility] [address] PCP - GeneralInternal Zkuvgoxi00/23/24Team MemberRelationshipSpecialtyStart Date End Date Ruben Shea MD [address] [place] [facility] [address] PCP - GeneralInternal Oikwxwcb84/23/24Team MemberRelationshipSpecialtyStart Date End Date Ruben Shea DO [address] [place] [facility] [address] PCP - GeneralInternal Yxtargcs98/23/24Team MemberRelationshipSpecialtyStart Date End Date Ruben Shea DO [address] [place] [facility] [phone] PCP - GeneralInternal Gfgnfdxf05/23/24 Team Status: Inactive Member Role Status Dates Ruben DO Monse Primary Care Provider Active Start: April 02, 2025 End: April 02enjames Shea DOAttending ProviderActiveStart: April 02, 2025 End: April 02, 2025 Goals (unrecognized section and content) Goals may [...] BE BASED ON THE PRIMARY CLINICAL RECORDS. [facility] provides no warranty or guarantee of the accuracy or completeness of information in this document.
[2025-05-05 07:35] LABS: Hematocrit 41.5 % (42.0-54.0); Hemoglobin 14.3 g/dL (14.0-18.0); Immature Granulocytes Abs Auto 0.05 10^3/uL (0.00-0.03); Immature Granulocytes Pct Auto 0.6 % (0.0-0.5); Lymphocytes Absolute Auto 2.2 10^3/uL (1.2-3.8); Mean Corpuscular HGB Conc 34.5 g/dL (29.9-35.2); Mean Corpuscular Hemoglobin 32.6 pg (25.9-34.0); Mean Corpuscular Volume 94.5 fL (80.0-94.0); Platelet Count 188 10^3/uL (150-450); Red Blood Count 4.39 10^6/uL (4.70-6.10); White Blood Count 8.4 10^3/uL (4.0-11.0)
[2025-05-05 07:36] LABS: Glucose Urine UA NEGATIVE (NEGATIVE)
[2025-05-05 08:02] LABS: Alanine Aminotransferase 47 U/L (16-63); Albumin Globulin Ratio 1.1; Albumin Level 4.0 g/dL (3.4-5.0); Alkaline Phosphatase 56 U/L (46-116); Anion Gap 14.5; Aspartate Amino Transferase 25 U/L (15-37); Blood Urea Nitrogen 20.0 mg/dL (7.0-18.0); Calcium 9.0 mg/dL (8.5-10.1); Carbon Dioxide 26.0 mmol/L (21.0-32.0); Chloride 103 mmol/L (98-107); Cholesterol 167 mg/dL (<=200); Estimated GFR (African America >60 (>=60 mL/min/1.73m^2); Estimated GFR (Non-African Ame >60 (>=60 mL/min/1.73m^2); Globulin 3.5 g/dL; Glucose 102 mg/dL (74-106); HDL Cholesterol 30 mg/dL (40-60); Magnesium 2.1 mg/dL (1.8-2.4); Potassium 4.5 mmol/L (3.5-5.1); Sodium 139 mmol/L (136-145); Thyroid Stimulating Hormone 2.972 uIU/mL (0.358-3.740); Total Protein 7.5 g/dL (6.4-8.2); Triglycerides 133 mg/dL (<=150); VLDL CHOLESTEROL 26.6 mg/dL
== END 2025-05-05 07:18 | disposition home or self-care (01) ==
LOC: LAB 07:17
PROVIDERS: PCP Internal Medicine; Visit Provider Internal Medicine
DX: N20.0 Calculus of kidney (principal); E78.00 Pure hypercholesterolemia, unspecified; I10 Essential (primary) hypertension; R53.83 Other fatigue; R25.2 Cramp and spasm; Z12.5 Encounter for screening for malignant neoplasm of prostate
CPT/HCPCS: 36415; 80053; 80061; 81003; 83735; 84443; 85025; G0103